=== PATIENT | female | born 1940 | race Caucasian/White ===

== ENCOUNTER 2020-02-01 08:45 | Emergency (ER) | payer MEDICARE, OTHER ==
[~2020-02-01] VITALS: Ht 157.5 cm; Wt 56.2 kg
[2020-02-01] MEDS ORDERED: LEVOTHYROXINE25 MCG PO (09:04)
[2020-02-01] MEDS ORDERED: HYDROCHLOROTH12.5 MG PO (09:05)
[2020-02-01] MEDS ORDERED: NORVASC5 MG PO (09:05)
[2020-02-01] MEDS ORDERED: LOVASTATIN10 MG PO (09:06)
[2020-02-01] MEDS ORDERED: CRANBERRY200 MG PO (09:06)
[2020-02-01] MEDS ORDERED: FISH OIL 1,0001 EAC2 NG (09:06)
[2020-02-01] MEDS ORDERED: ACID REDUCER200 MG PO (09:07)
[2020-02-01] MEDS ORDERED: VITAMIN D310 MC4 PO (09:07)
[2020-02-01] MEDS ORDERED: CALCIUM500 M1 PO (09:07)
[2020-02-01] MEDS ORDERED: MIRALAX17 GM PO (09:08)
--- NOTE | 2020-02-01 11:01 | EKG ---
[facility] [address] [facility] [place], [place] [address] Signed Sinus rhythm with 1st degree AV block Rightward axis Borderline ECG No previous ECGs available Confirmed by MARLENE CASTILLO DO ([id number]) on 02/01/2020 11:01:08 AM Electronically Signed By: MARLENE CASTILLO DO 02/01/20 1101 PATIENT NAME: VINICIO ALONSO TOMAS Electrocardiogram DATE OF : 36 PHYSICIAN: MARLENE CASTILLO DO REPORT #: [id number] REPORT IS CONFIDENTIAL AND NOT TO BE RELEASED WITHOUT AUTHORIZATION
[2020-02-01] MEDS ORDERED: CIPRO500 MG PO (13:53)
--- NOTE | 2020-02-04 01:18 | PATH ---
[facility] [address] [place], [place] [address] Signed ORDERING PHYSICIAN: Rosas Geller MD PATIENT NAME: VINICIO ALONSO GENDER: F : 1940 Prior History: No cases found. SPECIMEN(S): MOLECULAR PATHOLOGY RESULTS: SARS-CoV-2 Not Detected ADDITIONAL NOTES.: The Lindsay Fusion SARS-CoV-2 Assay is a multiplex real-time PCR (RT-PCR) in vitro diagnostic test intended for the qualitative detection of RNA from SARS-CoV-2 from individuals who meet COVID-19 clinical and/or epidemiological criteria. In general, SARS-CoV-2 RNA can be detected during the acute phase of infection. Positive results indicate the presence of SARS-CoV-2 RNA. Clinical correlation with patient history and other diagnostic information is necessary to determine patient infection status. Positive results do not rule out bacterial infection or co-infection with other viruses. Negative results do not preclude SARS-CoV-2 infection and should not be used as the sole basis for patient management decisions. Negative results must be combined with other clinical observations, patient history, and epidemiological information. The Lindsay Fusion SARS-CoV-2 Assay is not yet approved or cleared by the [place] FDA. When there are no FDA-approved or cleared tests available, and other criteria are met, FDA can make tests available under an emergency access mechanism called an Emergency Use Authorization (EUA). The EUA for this test is supported by the Fish Dressing Machine Feeder of Health and Human Service's (HHS's) declaration that circumstances exist to justify the emergency use of in vitro diagnostics for the detection and/or diagnosis of the virus that causes COVID-19. This EUA will remain in effect for the duration of the COVID-19 declaration justifying emergency of IVDs, unless it is terminated or revoked by FDA, after which the test may no longer be used. The Lindsay Fusion SARS-CoV-2 Assay is for use only under EUA PATIENT NAME: VINICIO ALONSO TOMAS PATHOLOGY DATE OF : 36 REPORT #: [id number] PHYSICIAN: LAITH PATHOLOGY PCP: HERACLIO BELTRAN MD REPORT IS CONFIDENTIAL AND NOT TO BE RELEASED WITHOUT AUTHORIZATION [facility] [address] [facility] [place], [place] [address] Signed in laboratories certified under the Clinical Laboratory Improvement Amendments of 1988 (CLIA) to perform high complexity tests. [facility] is certified under CLIA to perform high complexity clinical laboratory testing. Blanka Joel PERFORMING LABORATORY.: Molecular testing was performed by [facility] [address] (Formulator Compounder: Marvin Nails D.O.; CLIA#: [id number]) Diagnostician: System Interface Pathologist Electronically Signed 02/04/2020 Copies: ~ PATIENT NAME: VINICIO ALONSO PATHOLOGY DATE OF : 36 REPORT #: [id number] PHYSICIAN: LAITH MCGARRY PCP: HERACLIO BELTRAN MD REPORT IS CONFIDENTIAL AND NOT TO BE RELEASED WITHOUT AUTHORIZATION
== END 2020-02-01 14:22 | disposition home or self-care (01) ==
LOC: ED 08:45
DX: N39.0 Urinary tract infection, site not specified (principal); Z88.0 Allergy status to penicillin; Z88.8 Allergy status to other drugs, medicaments and biological substances; Z79.899 Other long term (current) 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; Z20.828 Contact with and (suspected) exposure to other viral communicable diseases
CPT/HCPCS: 51701; 71275; 74175; 80053; 81001; 83605; 83690; 84484; 85025; 85379; 85610; 93005; 93010; 99284-25; C9803; J1170; J2405; Q9967

== ENCOUNTER 2020-07-28 07:20 | Day surgery (SDC) | payer MEDICARE, OTHER ==
[~2020-07-28] VITALS: Ht 157.5 cm; Wt 58.0 kg
[~2020-07-28 07:20] MED LIST: ACID REDUCER200 MG PO; CALCIUM500 M1 PO; CIPRO500 MG PO; CRANBERRY200 MG PO; FISH OIL 1,0001 EAC2 NG; HYDROCHLOROTH12.5 MG PO; LEVOTHYROXINE25 MCG PO; LOVASTATIN10 MG PO; MIRALAX17 GM PO; NORVASC5 MG PO; VITAMIN D310 MC4 PO
[2020-07-28] MEDS ORDERED: ESTRADIOL0.5 MG PO (07:51)
--- NOTE | 2020-07-28 09:04 | NUR ---
07/28/20 0904 Kaelyn Whatley 0842 PT ARRIVED TO PACU ON 3L VIA NC, PT WAKES TO VERBAL STIMULI AND IS REORIENTED TO PACU. PT ENCOURAGED TO PASS GAS/AIR. VSS. PT EASILY FALLS BACK TO SLEEP. 09 O2 TURNED OFF.
--- NOTE | 2020-07-29 08:15 | OR ---
[facility] [address] [place], [place] [address] Signed DATE OF OPERATION: 07/28/2020 SURGEON: Jj Wells MD PREOPERATIVE DIAGNOSES: 1. Personal history of colonic polyps. 2. Sister with colonic polyps. 3. Brother with colonic polyps. 4. Brother of colon cancer at age 76. POSTOPERATIVE DIAGNOSES: 1. 4 mm polyp at 22 cm. 2. 4 mm polyps x2 at 6 cm. 3. Moderate internal and external hemorrhoids. PROCEDURE: Colonoscopy with hot biopsy. ESTIMATED BLOOD LOSS: None. INDICATIONS: Vinicio is an 79-year-old female asked to see me for a followup colonoscopy. She has a personal history of colonic polyps over multiple colonoscopies. She had adenomatous polyps [place] [address] Tomas Hodges in [place], [place]. She currently has no lower GI complaints. She has 8 siblings total. She had a sister and a brother who had colonic polyps removed. Another brother was diagnosed and of his colon cancer at age 76. She also has a little bit of constipation. In the office, I gave her a pamphlet on colonoscopy. Of course, she recalls the test quite well. She understands there is risk including, but not limited to gas bloating, crampy abdominal pain, bleeding, perforation requiring surgery, and missed diagnosis. She also understands the need for IV conscious sedation. She had expressed understanding and wished to proceed. PROCEDURE NOTE: Vinicio was taken into our endoscopy suite and placed in the left lateral decubitus position. She was given a total of 5 mg of Versed and 100 mcg of fentanyl to cover the case. A digital rectal exam was performed and this showed moderate circumferential external hemorrhoids. She had good sphincter tone. The adult colonoscope was introduced and advanced all around into the cecum under direct visualization of camera. It took extra sedation and abdominal compression in order to advance the scope. She has Electronically Signed By: JJ WELLS MD 07/29/20 0815 PATIENT NAME: VINICIO ALONSO [facility] OPERATIVE REPORT DATE OF : 36 REPORT #: [id number] PHYSICIAN: JJ WELLS MD PCP: HERACLIO BELTRAN MD REPORT IS CONFIDENTIAL AND NOT TO BE RELEASED WITHOUT AUTHORIZATION [facility] [address] [place], [place] [address] Signed a very long redundant left and transverse colon. Eventually, we made it down into the cecum itself, we could easily see the appendiceal orifice and the ileocecal valve. We had taken pictures throughout for photodocumentation. Her bowel prep was quite excellent. The scope was then slowly withdrawn. We removed the polyps as mentioned above. There was no diverticulosis. Again, she has a long redundant transverse left and sigmoid colon. The sigmoid colon is a bit narrow based on her body habitus and it did buckle the scope a bit. The rectum itself had two polyps. We then retroflexed the scope and she has moderate internal hemorrhoids as well. One hemorrhoid was bit irritated. It may bleed from time to time. After this, the gas was suctioned out and colonoscope removed. Vinicio tolerated the procedure quite well. RECOMMENDATIONS: I will see Vinicio back in my office in 7 to 14 days to review her results. Based on her family's longevity, she might consider another colonoscopy in 5 years. Jj Wells MD ALB/MODL /[id number] cc: MD Jj Jacobs MD Copies: HERACLIO BELTRAN MD, ANDREW L MD ~ Electronically Signed By: JJ WELLS MD 07/29/20 0815 PATIENT NAME: VINICIO ALONSO TOMAS OPERATIVE REPORT DATE OF : 36 REPORT #: [id number] PHYSICIAN: JJ WELLS MD PCP: HERACLIO BELTRAN MD REPORT IS CONFIDENTIAL AND NOT TO BE RELEASED WITHOUT AUTHORIZATION
--- NOTE | 2020-07-30 16:27 | PATH ---
[facility] [address] [place], [place] [address] Signed SPECIMEN(S): A RECTAL POLYP 6 CM SPECIMEN(S): B SIGMOID POLYP 22 CM SPECIMEN SOURCE: A. RECTAL POLYP 6 CM B. SIGMOID POLYP 22 CM CLINICAL HISTORY: History of polyps; family history of colon cancer MICROSCOPIC DESCRIPTION: Histologic sections of all submitted blocks are examined by light microscopy. These findings, together with the gross examination, support the pathologic diagnosis. FINAL PATHOLOGIC DIAGNOSIS: A. Rectum, polyp at 6 cm, polypectomy: - Hyperplastic polyp. - Negative for dysplasia or malignancy. B. Colon, sigmoid, polyp at 22 cm, polypectomy: - Cauterized colonic mucosa with no identifiable histopathologic abnormality. - Negative for dysplasia or malignancy. - See comment. COMMENT: Regarding specimen B: Multiple additional deeper levels are examined. Complete histologic evaluation of the mucosa is limited by cautery artifact. NAL:cml:C2NR GROSS DESCRIPTION: Two specimens are received in two containers, labeled "Favorit." A. The specimen, labeled and designated "Favorit, rectum polyp 6 cm," is received in formalin and consists of two luevano soft tissue fragments that measure 0.2 cm in greatest dimension. The specimen is entirely submitted in cassette (A1). B. The specimen, labeled and designated "Favorit, sigmoid polyp 22 cm," is received in formalin and consists of one luevano soft tissue fragment that measures 0.2 cm in greatest dimension. The specimen is entirely submitted in cassette (B1). VB (under the direct supervision of a pathologist) The Gross Description was prepared using a voice recognition system. The report was reviewed for accuracy; however, sound-alike word errors, addition and/or PATIENT NAME: VINICIO ALONSO PATHOLOGY DATE OF : 36 REPORT #: [id number] PHYSICIAN: LAITH MCGARRY PCP: HERACLIO BELTRAN MD REPORT IS CONFIDENTIAL AND NOT TO BE RELEASED WITHOUT AUTHORIZATION [facility] [address] [place] [address] Signed deletions may occur. If there is any question about this report, please contact Client Services. PERFORMING LABORATORY: The technical component was performed by [facility], [address] [place] [address] (Corporate Tax Preparer: Bree Willis MD; CLIA# [id number]). Professional interpretation [facility] performed by [facility], [address] [place] [address] (CLIA# [id number]). Diagnostician: Jessica Dodson MD Pathologist Electronically Signed 07/30/2020 Copies: ~ PATIENT NAME: VINICIO ALONSO PATHOLOGY DATE OF : 36 REPORT #: [id number] PHYSICIAN: LAITH MCGARRY PCP: HERACLIO BELTRAN MD REPORT IS CONFIDENTIAL AND NOT TO BE RELEASED WITHOUT AUTHORIZATION
== END 2020-07-28 09:35 | disposition home or self-care (01) ==
LOC: OPS 07:20 → DS 07:20 → OPS 07:30 → DS 07:30 → OPS 09:35 → DS 08-11 07:45
PROVIDERS: ATTEND Colon & Rectal Surgery
PROC: 0DBN8ZX Excision of Sigmoid Colon, Via Natural or Artificial Opening Endoscopic, Diagnostic (ICD-10-PCS; 2020-07-28)
PROC: 0DBP8ZX Excision of Rectum, Via Natural or Artificial Opening Endoscopic, Diagnostic (ICD-10-PCS; principal; 2020-07-28 07:30)
DX: K63.5 Polyp of colon (principal); K62.1 Rectal polyp; K64.8 Other hemorrhoids; K64.4 Residual hemorrhoidal skin tags; K21.9 Gastro-esophageal reflux disease without esophagitis; I10 Essential (primary) hypertension; E78.5 Hyperlipidemia, unspecified; H81.02 Meniere's disease, left ear; E03.9 Hypothyroidism, unspecified; Z86.010 Personal history of colon polyps; Z80.0 Family history of malignant neoplasm of digestive organs; Z83.71 Family history of colonic polyps; Z87.19 Personal history of other diseases of the digestive system; Z87.440 Personal history of urinary (tract) infections; Z88.1 Allergy status to other antibiotic agents; Z88.0 Allergy status to penicillin; Z88.8 Allergy status to other drugs, medicaments and biological substances
CPT/HCPCS: 99153; G0500; J2250; J3010

== ENCOUNTER 2021-06-22 12:01 | Emergency (ER) | payer MEDICARE, OTHER ==
[~2021-06-22] VITALS: Ht 157.5 cm; Wt 57.6 kg
[~2021-06-22 12:01] MED LIST changes: +ESTRADIOL0.5 MG PO
== END 2021-06-22 22:22 | disposition short-term general hospital (02) ==
LOC: ED 12:01
DX: R33.9 Retention of urine, unspecified (principal); M54.9 Dorsalgia, unspecified; E03.9 Hypothyroidism, unspecified; E78.00 Pure hypercholesterolemia, unspecified; Z88.0 Allergy status to penicillin; Z88.1 Allergy status to other antibiotic agents; Z88.8 Allergy status to other drugs, medicaments and biological substances; Z79.899 Other long term (current) 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; Z20.822 Contact with and (suspected) exposure to COVID-19
CPT/HCPCS: 36415; 51702; 51798; 74177; 80053; 81001; 83690; 85025; 99285-25; J2405; U0003

== ENCOUNTER 2021-12-22 19:43 | Emergency (ER) | payer MEDICARE, OTHER ==
[~2021-12-22] VITALS: Ht 157.5 cm; Wt 61.8 kg
[2021-12-22] MEDS ORDERED: MACROBID 100 M100 MG PO (20:41)
== END 2021-12-22 21:50 | disposition home or self-care (01) ==
LOC: ED 19:43
DX: R11.2 Nausea with vomiting, unspecified (principal); T36.8X5A Adverse effect of other systemic antibiotics, initial encounter; E03.9 Hypothyroidism, unspecified; E78.00 Pure hypercholesterolemia, unspecified; Z88.0 Allergy status to penicillin; Z88.8 Allergy status to other drugs, medicaments and biological substances; Z79.899 Other long term (current) 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
CPT/HCPCS: 36415; 80053; 85025; 96361; 96374; 96375; 99284-25; A9270; J2405; J2550; J7040

== ENCOUNTER 2022-06-01 11:19 | Emergency (ER) | payer MEDICARE, OTHER ==
[~2022-06-01] VITALS: Ht 157.5 cm; Wt 62.5 kg
[~2022-06-01 11:19] MED LIST changes: -CALCIUM500 M1 PO; +CALCIUM500 MG PO; +CRANBERRY PLUS1 EAC1 PO; -CRANBERRY200 MG PO; -FISH OIL 1,0001 EAC2 NG; +FISH OIL 1,0001 EAC6 PO; +MACROBID 100 M100 MG PO; -VITAMIN D310 MC4 PO; +VITAMIN D325 MCG PO
[2022-06-01] MEDS ORDERED: FLOMAX0.4 MG PO (15:32)
[2022-06-01] MEDS ORDERED: DITROPAN XL5 MG PO (15:32)
[2022-06-01] MEDS ORDERED: MACROBID 100 M100 MG PO (15:32)
[2022-06-02] MEDS ORDERED: OXYBUTYNIN CHLO10 MG PO (20:47)
[2022-06-02] MEDS ORDERED: NITROFURANTOIN100 M1 PO (20:47)
== END 2022-06-01 15:51 | disposition home or self-care (01) ==
LOC: ED 11:19
DX: R33.9 Retention of urine, unspecified (principal); I10 Essential (primary) hypertension; E78.00 Pure hypercholesterolemia, unspecified; E03.9 Hypothyroidism, unspecified; Z88.0 Allergy status to penicillin; Z88.8 Allergy status to other drugs, medicaments and biological substances; Z79.899 Other long term (current) 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
CPT/HCPCS: 36415; 51702; 51798; 80053; 81003; 83735; 85025; 99283-25; J2405; J7040

== ENCOUNTER 2022-06-02 20:13 | Inpatient (IN) | payer MEDICARE, OTHER ==
[~2022-06-02] VITALS: Ht 157.5 cm; Wt 59.2 kg
[~2022-06-02 20:13] MED LIST changes: +DITROPAN XL5 MG PO; +FLOMAX0.4 MG PO
--- OUTSIDE RECORDS SUMMARY | 2022-06-02 20:21 | XMS ---
PreManage Notification: VINICIO ALONSO Security Insurance Claims Examiner Events No recent Security Events currently on file CRITERIA MET - [facility] - 2 Visits in 30 Days CARE PROVIDERS RUBY [facility] 01/21/2015-Current PHONE: Unknown Deidre has no Care Guidelines for this patient. Jose VISIT COUNT (12 MO.) 4 [facility] TOTAL 4 NOTE: Visits indicate total known visits. ED/UCC VISIT TRACKING (12 MO.) 06/02/2022 20:13 [facility] [place] TYPE: Emergency COMPLAINT: - VOMITING 06/01/2022 11:19 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
[2022-06-02] MEDS ORDERED: NITROFURANTOIN100 M1 PO (20:47)
[2022-06-02] MEDS ORDERED: OXYBUTYNIN CHLO10 MG PO (20:47)
--- NOTE | 2022-06-03 03:32 | NUR ---
pt ARRIVED TO THE [facility] FROM ED STRETCHER, pt STOOD PIVOT FROM ED STRETCHER TO MS BED. pt ORIENTED TO POC FOR SHIFT AND INSTRUCTED TO USE CALL LIGHT BEFORE GETTING OOB. CALL LIGHT IN REACH. ADMISSION COMPLETE.
--- NOTE | 2022-06-03 04:17 | NUR ---
PATIENT ARRIVED TO THE FLOOR VIA STRETCHER. PATIENT ABLE TO PIVOT XFER FROM STRETCHER TO HOSPITAL BED A 1PA. PATIENT HAS RALPH IN PLACE FOR RETENTION. LEG BAG EXCHANGED FOR A REGULAR CATHETER BAG. PATIENTS IV INFUSING PER ORDER. PATIENT DENIES ANY PAIN OR SOB. PATIENT REPORTS NAUSEA THAT "COMES AND GOES". PATIENT DENIES THE NEED FOR INTERVENTION AT THIS TIME. PLAN OF CARE UPDATE WITH FAMILY AND PATIENT. ALL QUESTIONS ANSWERED. PATIENT DENIES ANY FURTHER NEEDS. CALL LIGHT IN REACH. FAMILY IS LEAVING FOR THE NIGHT.
--- NOTE | 2022-06-03 06:04 | NUR ---
PATIENTS VITALS TAKEN AND RECORDED. PATIENTS RALPH EMPTIED AND RALPH CARE COMPLETED. PATIENT DENIES ANY PAIN. PATIENT REPORTS MILD NAUSEA AND DENIES ANY INTERVENTION AT THIS TIME. PATIENTS IV INFUSING PER ORDER. PATIENT DENIES ANY FURTHER NEEDS. CALL LIGHT IN REACH.
--- NOTE | 2022-06-03 07:36 | NUR ---
SHAFFER IN PLACE DIRECTED, SPO2 MID 90'S ON RA. HR 107. NO NEEDS OR CONCERNS VERBALIZED. CALL LIGHT IN REACH.
--- NOTE | 2022-06-03 08:40 | NUR ---
REPORT RECEIVED FROM NIGHT RN AND PT CARE RESUMED. PT IS ALERT AND ORIENTED TO ALL. DENIES PT. C/O VERY MILD NAUSEA THAT IS INTERMITTENT AND REFUSES ANTIEMETIC MEDS. ASSESSMENT COMPLETED. MOUTH SWABS AND CALL LIGHT AT BEDSIDE.
[2022-06-03] MEDS ORDERED: LEVOTHYROXINE50 MCG PO (08:43)
[2022-06-03] MEDS ORDERED: LEVOTHYROXINE25 MCG PO (08:48)
--- NOTE | 2022-06-03 13:04 | NUR ---
MED REC COMPLETE
--- NOTE | 2022-06-03 15:21 | NUR ---
ROUNDING ON PT. FOCUSED ASSESSMENT COMPLETED. PT. DENIES NAUSEA AT THIS TIME. EATING JELLO AND DRINKING WATER.
--- NOTE | 2022-06-03 15:30 | NUR ---
Spoke with pt and she states she lives in an appartment alone. Multiple family members live near her. Family will stay with her if needed when she discharges. Pt use a walker at night for bathroom trips only. 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 She is active and plans on remaining so. She also drives. Denies need for any assist from [employer] or programs and does not want them. 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 Plans on dc to home when cleared medically. Denies any fiancial issues or concerns.
--- NOTE | 2022-06-03 16:16 | EKG ---
[facility] [address] [facility] [place] [address] Signed Normal sinus rhythm Normal ECG When compared with ECG of 01-FEB-2020 09:10, WI interval has decreased Confirmed by SO MULLIGAN MD ([id number]) on 06/03/2022 4:16:13 PM Electronically Signed By: SO MULLIGAN MD 06/03/22 1616 PATIENT NAME: VINICIO ALONSO TOMAS Electrocardiogram DATE OF : 36 PHYSICIAN: SO MULLIGAN MD REPORT #: [id number] REPORT IS CONFIDENTIAL AND NOT TO BE RELEASED WITHOUT AUTHORIZATION
--- NOTE | 2022-06-03 16:48 | NUR ---
CHECKED ON PATIENT AT 1600 TO SEE IF SHE NEEDED ANYTHING AND SHE SAID INSTEAD OF HAVING THE BEEF BROTH SHE WOULD LIKE TO TRY THE CHICKEN BROTH SO I ORDERED IT FOR HER FOR DINNER.
--- NOTE | 2022-06-03 19:38 | NUR ---
RECEIVED REPORT FROM DAY SHIFT RN. PATIENT IS RESTING IN BED WATCHING TV. PATIENT DENIES ANY NEEDS. CALL LIGHT IN REACH. IV INFUSING PER ORDER.
--- NOTE | 2022-06-03 20:47 | NUR ---
PATIENT ASSESMENT COMPLETED. PATIENT IS RESTING IN BED WATCHING TV. PATIENTS VITALS TAKEN AND RECORDED. PATIENTS RALPH EMPTIED AND RALPH CARE COMPLETED. PATIENTS IV INFUSIGN PER ORDER. PATIENTS PM MEDS GIVEN PER ORDER. PATIENT DENIES ANY PAIN OR NAUSEA. PATIENT IS AAOX4. PATIENT DENIES ANY FURTHER NEEDS. CALL LIGHT IN REACH.
--- NOTE | 2022-06-03 22:30 | NUR ---
PATIENTS BLOOD DRAWN AND SENT TO LAB. PATIENT TOLERATED ACTIVY WELL. PATIENTS IV INFUSING PER ORDER. PATIENT DENIES ANY FURTHER NEEDS. CALL LIGHT IN REACH.
--- NOTE | 2022-06-03 22:38 | NUR ---
PLACED CALL TO DR MULLIGAN WITH CONCERN OF SODIUM LAB DRAWN AT 2200. LAVERNE MULLIGAN TO PLACED ORDERS.
--- NOTE | 2022-06-03 22:54 | NUR ---
IV PUMP ALARMING, DISTAL OCCLUSION. NO ADDITIONAL NEEDS OR CONCERNS. CALL LIGHT IN REACH.
--- NOTE | 2022-06-04 00:32 | NUR ---
PATIENTS IV MEDS INFUSING PER ORDER. PATIENT DENIES ANY PAINOR NAUSEA. PATIENT DENIES ANY NEEDS. CALL LIGHT IN REACH.
--- NOTE | 2022-06-04 02:18 | NUR ---
VITALS TAKEN AND RECORDED. RALPH EMPTIED. INTAKE AND OUTPUT RECORDED. IV INFUSING PER ORDER. PATIENT DENIES ANY PAIN OR NAUSEA. CALL LIGHT IN REACH.
--- NOTE | 2022-06-04 04:02 | NUR ---
PATIENT IS RESTING IN BED ON RIGHT SIDE W/EYES CLSOED, RR 14. CALL LIGHT IN REACH. IV INFUSING PER ORDER.
--- NOTE | 2022-06-04 06:22 | NUR ---
PATIENT IS RESTING IN BED. PATIENTS VITALS TAKEN AND RECORDED. RALPH EMPTIED. INTAKE AND OUTPUT RECORDED. PATIENT DENIES ANY PAIN OR NAUSEA. AM MEDS PER ORDER. PATIENTS IV INFUSING PER ORDER. PATIENT DENIES ANY FURTHER NEEDS. CALL LIGHT IN REACH.
--- NOTE | 2022-06-04 07:34 | NUR ---
REPORT RECEIVED FROM NIGHT RN AND PT CARE RESUMED.
--- NOTE | 2022-06-04 14:33 | NUR ---
FOCUSED ASSESSMENT COMPLETED. PT. STATES SHE WAS ABLE TO EAT PART OF HER REGULAR DIET LUNCH BUT IS EATING SLOWLY DUE TO CAUTION. SHE DENIES NAUSEA OR PAIN. BROUGHT ICE. LEFT RESTING WITH CALL LIGHT IN [facility].
--- NOTE | 2022-06-04 16:45 | NUR ---
PT. AMBULATED ONE LAP AROUND THE UNIT WITH FWW AND SBA AND TOLERATED WELL. STEADY GAIT. SHE IS UP IN THE CHAIR FOR DINNER AND DENIES PAIN OR NAUSEA. CALL LIGHT IN REACH.
--- NOTE | 2022-06-04 19:10 | NUR ---
SHIFT REPORT GIVEN PER ROBERTO RN, PT AWAKE AND ALERT, CHEERFUL, VISITING WITH SON, WITHOUT REQUESTS AT THIS TIME.
--- NOTE | 2022-06-04 21:18 | NUR ---
PT RESTING WITH EYES CLOSED, AWAKENS EASILY, ALERT, VS AND ASSESSMENT COMPLETED, FRESH WATER GIVEN, PT WITH GOOD PO WATER INTAKE, SL X 2 BOTH FLUSHED WITH N/S, SITES INTACT, PT DENIES PAIN.
--- NOTE | 2022-06-04 21:45 | NUR ---
PT AWAKE, RT A/B GIVEN PER ORDER WITH CRACKERS, PT WITHOUT OTHER REQUESTS, DRINKING WATER WELL, ATTEMPTING TO SLEEP.
--- NOTE | 2022-06-04 23:35 | NUR ---
PT ASLEEP, RESP EVEN AND REGULAR, WITHOUT DISTRESS.
--- NOTE | 2022-06-05 00:30 | NUR ---
PT ASLEEP, TILTED ON SIDE, RESP EVEN AND REG.
--- NOTE | 2022-06-05 00:45 | NUR ---
RN CALLED TO PT'S ROOM, REQUESTING TO HAVE HER DOOR CLOSED, DENIES NEED FOR WARM BLANKET.
--- NOTE | 2022-06-05 02:15 | NUR ---
PT ASLEEP, RESP EVEN AND REG, WITHOUT DISTRESS.
--- NOTE | 2022-06-05 03:13 | NUR ---
PT RESTING QUIETLY, OPENS EYES BRIEFLY, THEN BACK TO SLEEP, RALPH EMPTIED FOR 1000 ML LIGHT YELLOW URINE.
--- NOTE | 2022-06-05 05:22 | NUR ---
PT APPEARS TO SLEEP, RESP EVEN AND REG, WITHOUT DISTRESS.
--- NOTE | 2022-06-05 06:10 | NUR ---
PT AWAKEN, ALERT, WITHOUT C/O PAIN, REQUESTS SOME OF HER BLANKETS BE REMOVED DUE TO THEM BEING SRATCHY, DONE, VS DONE, RT MEDS GIVEN, RALPH EMPTIED, FRESH WATER GIVEN, ASSESSMENT COMPLETED, PT ATTEMPTING TO REST.
--- NOTE | 2022-06-05 07:38 | NUR ---
PT RESTING SOUNDLY AT TIME OF SHIFT REPORT. BREATHING EVEN AND UNLABORED, LEFT UNDISTURBED. CALL LIGHT IN REACH FRESH H20 AT BEDSIDE.
--- NOTE | 2022-06-05 08:14 | NUR ---
PT SITTING UP IN THE CHAIR AT THIS TIME WAITING FOR MORNING MEAL AGREES SHE IS HUNGRY. DENIES NEEDS OR DISCOMFORTS. CALL LIGHT IN LAP
--- NOTE | 2022-06-05 09:07 | NUR ---
PT UP IN THE CHAIR TOLERATING SMALL AMOUNTS OF MORNING MEAL. DENIES NAUSEA OR DISCOMFORTS. LIGHT LUNCH ORDERED FOR NOON MEAL PER HER REQUEST. CALL LIGHT IN REACH
--- NOTE | 2022-06-05 10:24 | NUR ---
PT RETURNS TO RESTING IN BED, DENIES NAUSEA OR ILL EFFECTS FROM MORNING MEAL.
[2022-06-05] MEDS ORDERED: LEVOFLOXACIN750 MG PO (12:06)
--- NOTE | 2022-06-05 13:02 | NUR ---
CATH CARE REVIEWED WITH THIS PT SHE DECLARES SHE HAS HAD A HOME CATH PRIOR AND IS VERY FAMILIAR, BUT WILL READ LITERATURE ANYWAY. WRITTEN MATERIALS PROVIDED
== END 2022-06-05 14:10 | disposition home or self-care (01) | DRG 690 ==
LOC: ED 20:13 → MS 20:14
PROVIDERS: ADMIT Internal Medicine; ATTEND Internal Medicine
DX: N30.00 Acute cystitis without hematuria (principal); E87.1 Hypo-osmolality and hyponatremia; Z20.822 Contact with and (suspected) exposure to COVID-19; Z66 Do not resuscitate; N81.10 Cystocele, unspecified; R33.9 Retention of urine, unspecified; N13.8 Other obstructive and reflux uropathy; E78.00 Pure hypercholesterolemia, unspecified; E87.6 Hypokalemia; E83.42 Hypomagnesemia; K80.20 Calculus of gallbladder without cholecystitis without obstruction; I10 Essential (primary) hypertension; E03.9 Hypothyroidism, unspecified; Z88.0 Allergy status to penicillin; Z88.2 Allergy status to sulfonamides; Z88.8 Allergy status to other drugs, medicaments and biological substances; Z79.890 Hormone replacement therapy; Z90.710 Acquired absence of both cervix and uterus; Z79.899 Other long term (current) 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
CPT/HCPCS: 36415; 74177; 76705; 80048; 80053; 81001; 83605; 83735; 84484; 85025; 87502; 93005; 93010; C9803; J1650; J1790; J1956; J2405; J3475; J3480; J7030; J7121; J7131; Q9967; U0003

== ENCOUNTER 2022-08-23 19:39 | Emergency (ER) | payer MEDICARE, OTHER ==
[~2022-08-23] VITALS: Ht 157.5 cm; Wt 57.2 kg
[~2022-08-23 19:39] MED LIST changes: +AMLODIPINE BESYL5 MG PO; +LEVOFLOXACIN750 MG PO; +LEVOTHYROXINE50 MCG PO; +NITROFURANTOIN100 M1 PO; +OMEPRAZOLE20 MG PO; +OXYBUTYNIN CHLO10 MG PO; +TAMSULOSIN HCL0.4 MG PO
--- OUTSIDE RECORDS SUMMARY | 2022-08-23 19:47 | XMS ---
PreManage Notification: VINICIO ALONSO Security Watchguard Events No recent Security Events currently on file CRITERIA MET - [facility] - 2 Visits in 30 Days CARE PROVIDERS RUBY [facility] 01/21/2015-Current PHONE: Unknown Deidre has no Care Guidelines for this patient. Jose VISIT COUNT (12 MO.) 6 [facility] TOTAL 6 NOTE: Visits indicate total known visits. ED/UCC VISIT TRACKING (12 MO.) 08/23/2022 19:40 [facility] [place] TYPE: Emergency COMPLAINT: - UNABLE TO URINATE 08/21/2022 07:43 [facility] [place] TYPE: Emergency COMPLAINT: - N/V 08/20/2022 14:51 [facility] [place] TYPE: Emergency COMPLAINT: - CATHETER PROBLEM DIAGNOSES: - Allergy status to other antibiotic agents - Allergy status to other drugs, medicaments and biological substances - Allergy status to penicillin - Allergy status to sulfonamides - Essential (primary) hypertension - Hypothyroidism, unspecified - Other skilled nursing (current) 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 - Presence of urogenital implants - Pure hypercholesterolemia, unspecified - Urinary tract infection, site not specified 06/02/2022 20:[address] [facility] [place] TYPE: Emergency COMPLAINT: - VOMITING 06/01/2022 11:19 [facility] [place] TYPE: Emergency COMPLAINT: - VOMITING, CHILLS, POSS UTI DIAGNOSES: - Allergy status to other drugs, medicaments and biological substances - Allergy status to penicillin - Essential (primary) hypertension - Hypothyroidism, unspecified - Other terminal worker (current) 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 - Pure hypercholesterolemia, unspecified - Retention of urine, unspecified 12/22/2021 19:44 [facility] [place] TYPE: Emergency COMPLAINT: - MEDICATION REACTION DIAGNOSES: - Adverse effect of other systemic antibiotics, initial encounter - Allergy status to other drugs, medicaments and biological substances - Allergy status to penicillin - Hypothyroidism, unspecified - Nausea with vomiting, unspecified - Other skilled nursing (current) 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 - Pure hypercholesterolemia, unspecified INPATIENT VISIT TRACKING (12 MO.) 08/21/2022 07:44 [facility] [place] TYPE: Observation COMPLAINT: - UTI,SYNCOPE 06/03/2022 10:57 [facility] [place] TYPE: Medical Surgical COMPLAINT: - INTRACTABLE NAUSEA/VOMITING/URINARY RETENTION DIAGNOSES: - Acquired absence of both cervix and uterus - Acute cystitis without hematuria - Allergy status to other drugs, medicaments and biological substances - Allergy status to penicillin - Allergy status to sulfonamides - Calculus of gallbladder without cholecystitis without obstruction - Contact with and (suspected) exposure to COVID-19 - Cystocele, unspecified - Do not resuscitate - Essential (primary) hypertension - Hormone replacement therapy - Hypo-osmolality and hyponatremia - Hypokalemia - Hypomagnesemia - Hypothyroidism, unspecified - Other skilled nursing (current) 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 - Other obstructive and reflux uropathy - Pure hypercholesterolemia, unspecified - Retention of urine, unspecified [email or web address]
[2022-08-23 21:25] VITALS: BP 151/67
[2022-08-24] MEDS ORDERED: PYRIDIUM200 MG PO (20:35)
== END 2022-08-23 21:26 | disposition home or self-care (01) ==
LOC: ED 19:39
DX: R33.9 Retention of urine, unspecified (principal); I10 Essential (primary) hypertension; E03.9 Hypothyroidism, unspecified; E78.00 Pure hypercholesterolemia, unspecified; Z88.0 Allergy status to penicillin; Z88.1 Allergy status to other antibiotic agents; Z88.2 Allergy status to sulfonamides; Z88.8 Allergy status to other drugs, medicaments and biological substances; Z79.899 Other long term (current) 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
CPT/HCPCS: 51702; 99283-25

== ENCOUNTER 2022-08-24 17:53 | Emergency (ER) | payer MEDICARE, OTHER ==
[~2022-08-24] VITALS: Ht 157.5 cm; Wt 57.1 kg
--- OUTSIDE RECORDS SUMMARY | 2022-08-24 18:00 | XMS ---
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 Jose VISIT COUNT (12 MO.) [address] [place] [address] TOTAL 7 NOTE: Visits indicate total known visits. ED/UCC VISIT TRACKING (12 MO.) 08/24/2022 17:54 [facility] TYPE: Emergency COMPLAINT: - CATHETER PROBLEM 08/23/2022 19:40 [facility] TYPE: Emergency COMPLAINT: - UNABLE TO URINATE 08/21/2022 07:43 [facility] TYPE: Emergency COMPLAINT: - N/V 08/20/2022 14:51 [facility] TYPE: Emergency COMPLAINT: - CATHETER PROBLEM DIAGNOSES: - Allergy status to other antibiotic agents - Allergy status to other drugs, medicaments and biological substances - Allergy status to penicillin - Allergy status to sulfonamides - Essential (primary) hypertension - Hypothyroidism, unspecified - Other residential (current) 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 - Presence of urogenital implants - Pure hypercholesterolemia, unspecified - Urinary tract infection, site not specified 06/02/2022 20:13 [facility] TYPE: Emergency COMPLAINT: - VOMITING 06/01/2022 11:19 [facility] TYPE: Emergency COMPLAINT: - VOMITING, CHILLS, POSS UTI DIAGNOSES: - Allergy status to other drugs, medicaments and biological substances - Allergy status to penicillin - Essential (primary) hypertension - Hypothyroidism, unspecified - Other residential (current) 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 - Pure hypercholesterolemia, unspecified - Retention of urine, unspecified 12/22/2021 19:44 [facility] TYPE: Emergency COMPLAINT: - MEDICATION REACTION DIAGNOSES: - Adverse effect of other systemic antibiotics, initial encounter - Allergy status to other drugs, medicaments and biological substances - Allergy status to penicillin - Hypothyroidism, unspecified - Nausea with vomiting, unspecified - 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
[2022-08-24] MEDS ORDERED: PYRIDIUM200 MG PO (20:35)
[2022-08-24 21:04] VITALS: BP 165/71
== END 2022-08-24 21:06 | disposition home or self-care (01) ==
LOC: ED 17:53
DX: T83.098A Other mechanical complication of other urinary catheter, initial encounter (principal); Y84.6 Urinary catheterization as the cause of abnormal reaction of the patient, or of later complication, without mention of misadventure at the time of the procedure; I10 Essential (primary) hypertension; E78.00 Pure hypercholesterolemia, unspecified; E03.9 Hypothyroidism, unspecified; Z88.0 Allergy status to penicillin; Z88.1 Allergy status to other antibiotic agents; Z88.2 Allergy status to sulfonamides; Z79.899 Other long term (current) 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
CPT/HCPCS: 51798; 81001; 99283-25

== ENCOUNTER 2022-09-30 09:19 | Emergency (ER) | payer MEDICARE, OTHER ==
[~2022-09-30] VITALS: Ht 157.5 cm; Wt 54.4 kg
--- OUTSIDE RECORDS SUMMARY | ~2022-09-30 | XMS | Continuity of Care Document ---
Demographics + + + | Address | [address] | | | [place] [address] | + + + | Preferred Language | Unknown | + + + | Marital Status | | + + + | Jewish Affiliation | Unknown | + + + | Race | White | + + + | Ethnic Group | Not or | + + + Author + + + | Author | [facility] | + + + | Organization | [facility] | + + + | Address | [address] | | | [place] [address] | + + + | Phone | | + + + Care Team Providers + + + + | Care Divisional Storekeeper Name | Role | Phone | + + + + Unavailable | Unavailable | + + + + Unavailable | Unavailable | + + + + Unavailable | Unavailable | + + + + Unavailable | Unavailable | + + + + Unavailable | Unavailable | + + + + Unavailable | Unavailable | + + + + Allergies and Intolerances + + + + + + | date | description | facility | reaction | severity | + + + + + + | (no date) | | [facility] | (no reaction) | (no severity) | | | Sulfamethoxazol | [facility] | | | + + + + + + | (no date) | Trimethoprim | [facility] | (no reaction) | (no severity) | | | | [facility] | | | + + + + + + | (no date) | AMOXICILLIN | [facility] | (no reaction) | (no severity) | | | | [place] | | | + + + + + + | (no date) | Hives | [facility] | (no reaction) | (no severity) | | | | [place] | | | + + + + + + | (no date) | AMOXICILLIN | [facility] | (no reaction) | (no severity) | | | | [place] | | | + + + + + + | (no date) | AMOXICILLIN | [facility] | (no reaction) | (no severity) | | | | [place] | | | + + + + + + | (no date) | Upset stomach | [facility] | (no reaction) | (no severity) | | | | [facility] | | | + + + + + + | (no date) | AMOXICILLIN | [facility] | (no reaction) | (no severity) | | | | [place] | | | + + + + + + | (no date) | CEFUROXIME | [facility] | (no reaction) | (no severity) | | | | [place] | | | + + + + + + | (no date) | CEFUROXIME | [facility] | (no reaction) | (no severity) | | | AXETIL | [place] | | | + + + + + + | (no date) | CEFUROXIME | [facility] | (no reaction) | (no severity) | | | | [place] | | | + + + + + + | (no date) | CEFUROXIME | [facility] | (no reaction) | (no severity) | | | AXETIL | [place] | | | + + + + + + | (no date) | CEFUROXIME | [facility] | (no reaction) | (no severity) | | | AXETIL | [place] | | | + + + + + + | (no date) | CEFUROXIME | [facility] | (no reaction) | (no severity) | | | | [place] | | | + + + + + + | (no date) | Cefuroxime | [facility] | (no reaction) | (no severity) | | | | [facility] | | | + + + + + + | (no date) | AMOXICILLIN | [facility] | (no reaction) | (no severity) | | | | [place] | | | + + + + + + | (no date) | CEFUROXIME | [facility] | (no reaction) | (no severity) | | | AXETIL | [place] | | | + + + + + + | (no date) | Mild | [facility] | (no reaction) | (no severity) | | | | [facility] | | | + + + + + + | (no date) | AMOXICILLIN | [facility] | (no reaction) | (no severity) | | | | [place] | | | + + + + + + | (no date) | Rash | [facility] | (no reaction) | (no severity) | | | | [facility] | | | + + + + + + | (no date) | Amoxicillin | [facility] | (no reaction) | (no severity) | | | | [facility] | | | + + + + + + | (no date) | Pruritus | [facility] | (no reaction) | (no severity) | | | | [place] | | | + + + + + + | (no date) | Unknown | [facility] | (no reaction) | (no severity) | | | | [place] | | | + + + + + + | (no date) | ESOMEPRAZOLE | [facility] | (no reaction) | (no severity) | | | MAGNESIUM | [place] | | | + + + + + + | (no date) | ESOMEPRAZOLE | [facility] | (no reaction) | (no severity) | | | MAGNESIUM | [place] | | | + + + + + + | (no date) | Esomeprazole | [facility] | (no reaction) | (no severity) | | | | [facility] | | | + + + + + + | (no date) | Esomeprazole | [facility] | (no reaction) | (no severity) | | | | [facility] | | | + + + + + + | (no date) | Trimethoprim | [facility] | (no reaction) | (no severity) | | | | [facility] | | | + + + + + + | (no date) | | [facility] | (no reaction) | (no severity) | | | Sulfamethoxazol | [facility] | | | + + + + + + | (no date) | Cefuroxime | [facility] | (no reaction) | (no severity) | | | | [facility] | | | + + + + + + | (no date) | AMOXICILLIN | [facility] | (no reaction) | (no severity) | | | | [place] | | | + + + + + + | (no date) | CEFUROXIME | [facility] | (no reaction) | (no severity) | | | AXETIL | [place] | | | + + + + + + | (no date) | PENICILLINS | [facility] | (no reaction) | (no severity) | | | | [place] | | | + + + + + + | (no date) | Penicillin | [facility] | (no reaction) | (no severity) | | | | [facility] | | | + + + + + + | (no date) | AMOXICILLIN | [facility] | (no reaction) | (no severity) | | | | [place] | | | + + + + + + | (no date) | Amoxicillin | [facility] | (no reaction) | (no severity) | | | | [facility] | | | + + + + + + | (no date) | Penicillin | [facility] | (no reaction) | (no severity) | | | | [facility] | | | + + + + + + | (no date) | AMOXICILLIN | [facility] | (no reaction) | (no severity) | | | | [place] | | | + + + + + + | (no date) | Amoxicillin | [facility] | (no reaction) | (no severity) | | | | [facility] | | | + + + + + + | (no date) | AMOXICILLIN | [facility] | (no reaction) | (no severity) | | | | [place] | | | + + + + + + | (no date) | Trimethoprim | [facility] | (no reaction) | (no severity) | | | | [facility] | | | + + + + + + | (no date) | Penicillins | [facility] | (no reaction) | (no severity) | + + + + + + | (no date) | | [facility] | (no reaction) | (no severity) | | | sulfamethoxazol | | | | | | e | | | | + + + + + + | (no date) | trimethoprim | [facility] | (no reaction) | (no severity) | + + + + + + | (no date) | cefuroxime | [facility] | (no reaction) | (no severity) | + + + + + + | (no date) | amoxicillin | [facility] | (no reaction) | (no severity) | + + + + + + | (no date) | esomeprazole | [facility] | (no reaction) | (no severity) | + + + + + + | (no date) | | [facility] | (no reaction) | (no severity) | | | Sulfamethoxazol | [facility] | | | + + + + + + | (no date) | Penicillin | [facility] | (no reaction) | (no severity) | | | | [facility] | | | + + + + + + | (no date) | Esomeprazole | [facility] | (no reaction) | (no severity) | | | | [facility] | | | + + + + + + | (no date) | AMOXICILLIN | [facility] | (no reaction) | (no severity) | | | | [place] | | | + + + + + + | (no date) | AMOXICILLIN | [facility] | (no reaction) | (no severity) | | | [facility] | | | + + + + + + | (no date) | CEFUROXIME | [facility] | (no reaction) | (no severity) | | | AXETIL | [place] | | | + + + + + + | (no date) | CEFUROXIME | [facility] | (no reaction) | (no severity) | | | AXETIL | [facility] | | | + + + + + + | (no date) | CEFUROXIME | [facility] | (no reaction) | (no severity) | | | | [place] | | | + + + + + + | (no date) | CEFUROXIME | [facility] | (no reaction) | (no severity) | | | [facility] | | | + + + + + + | (no date) | ESOMEPRAZOLE | [facility] | (no reaction) | (no severity) | | | MAGNESIUM | [place] | | | + + + + + + | (no date) | ESOMEPRAZOLE | [facility] | (no reaction) | (no severity) | | | MAGNESIUM | [facility] | | | + + + + + + | (no date) | PENICILLINS | [facility] | (no reaction) | (no severity) | | | | [place] | | | + + + + + + | (no date) | PENICILLINS | [facility] | (no reaction) | (no severity) | | | [facility] | | | + + + + + + | (no date) | CEFUROXIME | [facility] | (no reaction) | (no severity) | | | | [place] | | | + + + + + + | (no date) | Cefuroxime | [facility] | (no reaction) | (no severity) | | | | [facility] | | | + + + + + + | (no date) | Penicillin | [facility] | (no reaction) | (no severity) | | | | [facility] | | | + + + + + + | (no date) | CEFUROXIME | [facility] | (no reaction) | (no severity) | | | AXETIL | [place] | | | + + + + + + Encounters No information. Functional Status No information. Immunizations No information. Medications + + + + | date | description | facility | + + + + | 2022-08-24 00:00 | PHENAZOPYRIDINE HCL | [facility] | + + + + | 2022-06-05 00:00 | CRANBERRY CONC/ASCORBIC | [facility] | | | ACID | | + + + + | 2022-08-20 00:00 | CRANBERRY CONC/ASCORBIC | [facility] | | | ACID | | + + + + | 2022-08-23 00:00 | CRANBERRY CONC/ASCORBIC | [facility] | | | ACID | | + + + + | 2022-08-23 00:00 | CRANBERRY CONC/ASCORBIC | [facility] | | | ACID | | + + + + | 2022-08-24 00:00 | CRANBERRY CONC/ASCORBIC | [facility] | | | ACID | | + + + + | 2022-09-26 00:00 | CRANBERRY CONC/ASCORBIC | [facility] | | | ACID | | + + + + | 2022-06-05 00:00 | NITROFURANTOIN | [facility] | | | MONOHYD/M-CRYST | | + + + + | 2022-08-20 00:00 | NITROFURANTOIN | [facility] | | | MONOHYD/M-CRYST | | + + + + | 2022-08-23 00:00 | NITROFURANTOIN | [facility] | | | MONOHYD/M-CRYST | | + + + + | 2022-08-23 00:00 | NITROFURANTOIN | [facility] | | | MONOHYD/M-CRYST | | + + + + | 2022-08-24 00:00 | NITROFURANTOIN | [facility] | | | MONOHYD/M-CRYST | | + + + + | 2022-09-26 00:00 | NITROFURANTOIN | [facility] | | | MONOHYD/M-CRYST | | + + + + | 2022-06-01 00:00 | nitrofurantoin | [facility] | | | macrocrystals 25 mg / | | | | nitrofurantoin monohydrate | | | | 75 mg oral capsule | | + + + + | 2019-08-21 00:00 | microencapsulated | [facility] | | | potassium chloride 10 meq | | | | extended release oral | | | | tablet | | + + + + | 2022-08-23 00:00 | AMLODIPINE BESYLATE | [facility] | + + + + | 2022-08-23 00:00 | AMLODIPINE BESYLATE | [facility] | + + + + | 2022-08-24 00:00 | AMLODIPINE BESYLATE | [facility] | + + + + | 2022-09-26 00:00 | AMLODIPINE BESYLATE | [facility] | + + + + | 2019-07-12 00:00 | amlodipine 5 mg oral | [facility] | | | tablet | | + + + + | 2021-12-22 00:00 | CIMETIDINE | [facility] | + + + + | 2022-06-01 00:00 | CIMETIDINE | [facility] | + + + + | 2022-06-05 00:00 | CIMETIDINE | [facility] | + + + + | 2022-08-20 00:00 | CIMETIDINE | [facility] | + + + + | 2022-08-23 00:00 | CIMETIDINE | [facility] | + + + + | 2022-08-23 00:00 | CIMETIDINE | [facility] | + + + + | 2022-08-24 00:00 | CIMETIDINE | [facility] | + + + + | 2022-09-26 00:00 | CIMETIDINE | [facility] | + + + + | 2019-08-13 00:00 | cimetidine 200 mg oral | [facility] | | | tablet | | + + + + | 2021-12-22 00:00 | ESTRADIOL | [facility] | + + + + | 2022-06-01 00:00 | ESTRADIOL | [facility] | + + + + | 2022-06-05 00:00 | ESTRADIOL | [facility] | + + + + | 2022-08-20 00:00 | ESTRADIOL | [facility] | + + + + | 2022-08-23 00:00 | ESTRADIOL | [facility] | + + + + | 2022-08-23 00:00 | ESTRADIOL | [facility] | + + + + | 2022-08-24 00:00 | ESTRADIOL | [facility] | + + + + | 2022-09-26 00:00 | ESTRADIOL | [facility] | + + + + | 2019-08-13 00:00 | estradiol 0.5 mg oral | [facility] | | | tablet | | + + + + | 2021-12-22 00:00 | LOVASTATIN | [facility] | + + + + | 2022-06-01 00:00 | LOVASTATIN | [facility] | + + + + | 2022-06-05 00:00 | LOVASTATIN | [facility] | + + + + | 2022-08-20 00:00 | LOVASTATIN | [facility] | + + + + | 2022-08-23 00:00 | LOVASTATIN | [facility] | + + + + | 2022-08-23 00:00 | LOVASTATIN | [facility] | + + + + | 2022-08-24 00:00 | LOVASTATIN | [facility] | + + + + | 2022-09-26 00:00 | LOVASTATIN | [facility] | + + + + | 2019-09-27 00:00 | lovastatin 10 mg oral | [facility] | | | tablet | | + + + + | 2022-08-20 00:00 | OMEPRAZOLE | [facility] | + + + + | 2022-08-23 00:00 | OMEPRAZOLE | [facility] | + + + + | 2022-08-23 00:00 | OMEPRAZOLE | [facility] | + + + + | 2022-08-24 00:00 | OMEPRAZOLE | [facility] | + + + + | 2022-09-26 00:00 | OMEPRAZOLE | [facility] | + + + + | 2022-07-09 00:00 | omeprazole 20 mg (as | [facility] | | | omeprazole magnesium 20.6 | | | | mg) delayed release oral | | | | capsule | | + + + + | 2022-06-05 00:00 | Cholecalciferol (Vitamin | [facility] | | | D3) | | + + + + | 2022-08-20 00:00 | Cholecalciferol (Vitamin | [facility] | | | D3) | | + + + + | 2022-08-23 00:00 | Cholecalciferol (Vitamin | [facility] | | | D3) | | + + + + | 2022-08-23 00:00 | Cholecalciferol (Vitamin | [facility] | | | D3) | | + + + + | 2022-08-24 00:00 | Cholecalciferol (Vitamin | [facility] | | | D3) | | + + + + | 2022-09-26 00:00 | Cholecalciferol (Vitamin | [facility] | | | D3) | | + + + + | 2019-08-13 00:00 | hydrochlorothiazide 12.5 | [facility] | | | mg oral capsule | | + + + + | 2020-02-01 00:00 | CIPROFLOXACIN HCL | [facility] | + + + + | 2020-02-01 00:00 | CIPROFLOXACIN HCL | [facility] | + + + + | 2020-02-01 00:00 | CIPROFLOXACIN HCL | [facility] | + + + + | 2021-12-22 00:00 | AMLODIPINE BESYLATE | [facility] | + + + + | 2022-06-01 00:00 | AMLODIPINE BESYLATE | [facility] | + + + + | 2022-06-05 00:00 | AMLODIPINE BESYLATE | [facility] | + + + + | 2022-08-20 00:00 | AMLODIPINE BESYLATE | [facility] | + + + + | 2022-08-23 00:00 | AMLODIPINE BESYLATE | [facility] | + + + + | 2022-08-23 00:00 | AMLODIPINE BESYLATE | [facility] | + + + + | 2022-08-24 00:00 | AMLODIPINE BESYLATE | [facility] | + + + + | 2022-09-26 00:00 | AMLODIPINE BESYLATE | [facility] | + + + + | 2010-06-04 00:00 | vitamin d3 25 mcg oral | [facility] | | | capsule | | + + + + | 2022-06-05 00:00 | CALCIUM CARBONATE | [facility] | + + + + | 2022-08-20 00:00 | CALCIUM CARBONATE | [facility] | + + + + | 2022-08-23 00:00 | CALCIUM CARBONATE | [facility] | + + + + | 2022-08-23 00:00 | CALCIUM CARBONATE | [facility] | + + + + | 2022-08-24 00:00 | CALCIUM CARBONATE | [facility] | + + + + | 2022-09-26 00:00 | CALCIUM CARBONATE | [facility] | + + + + | 2022-07-25 00:00 | estradiol 0.1 mg/ml | [facility] [place] | | | vaginal cream | | + + + + | 2022-06-05 00:00 | LEVOFLOXACIN | [facility] | + + + + | 2022-08-23 00:00 | LEVOFLOXACIN | [facility] | + + + + | 2022-06-05 00:00 | levofloxacin 750 mg oral | [facility] [place] | | | tablet | | + + + + | 2021-12-22 00:00 | CALCIUM CARBONATE | [facility] | + + + + | 2022-06-01 00:00 | CALCIUM CARBONATE | [facility] | + + + + | 2022-07-28 00:00 | Drug or medicament | [facility] | | | (substance) | | + + + + | 2021-12-22 00:00 | HYDROCHLOROTHIAZIDE | [facility] | + + + + | 2022-06-01 00:00 | HYDROCHLOROTHIAZIDE | [facility] | + + + + | 2022-06-05 00:00 | HYDROCHLOROTHIAZIDE | [facility] | + + + + | 2022-08-20 00:00 | HYDROCHLOROTHIAZIDE | [facility] | + + + + | 2022-08-23 00:00 | HYDROCHLOROTHIAZIDE | [facility] | + + + + | 2022-08-23 00:00 | HYDROCHLOROTHIAZIDE | [facility] | + + + + | 2022-08-24 00:00 | HYDROCHLOROTHIAZIDE | [facility] | + + + + | 2022-09-26 00:00 | HYDROCHLOROTHIAZIDE | [facility] | + + + + | 2021-12-22 00:00 | Cholecalciferol (Vitamin | [facility] | | | D3) | | + + + + | 2022-06-01 00:00 | Cholecalciferol (Vitamin | [facility] | | | D3) | | + + + + | 2021-12-22 00:00 | NITROFURANTOIN MONOHYD | [facility] | | | MACROCR | | + + + + | 2022-06-01 00:00 | NITROFURANTOIN MONOHYD | [facility] | | | MACROCR | | + + + + | 2022-08-20 00:00 | NITROFURANTOIN MONOHYD | [facility] | | | MACROCR | | + + + + | 2021-12-22 00:00 | CRANBERRY EXTRACT | [facility] | + + + + | 2022-06-01 00:00 | CRANBERRY EXTRACT | [facility] | + + + + | 2022-06-05 00:00 | OXYBUTYNIN CHLORIDE | [facility] | + + + + | 2022-08-20 00:00 | OXYBUTYNIN CHLORIDE | [facility] | + + + + | 2022-08-23 00:00 | OXYBUTYNIN CHLORIDE | [facility] | + + + + | 2022-08-23 00:00 | OXYBUTYNIN CHLORIDE | [facility] | + + + + | 2022-08-24 00:00 | OXYBUTYNIN CHLORIDE | [facility] | + + + + | 2022-09-26 00:00 | OXYBUTYNIN CHLORIDE | [facility] | + + + + | 2022-06-01 00:00 | OXYBUTYNIN CHLORIDE | [facility] | + + + + | 2022-08-23 00:00 | TAMSULOSIN HCL | [facility] | + + + + | 2022-08-23 00:00 | TAMSULOSIN HCL | [facility] | + + + + | 2022-08-24 00:00 | TAMSULOSIN HCL | [facility] | + + + + | 2022-09-26 00:00 | TAMSULOSIN HCL | [facility] | + + + + | 2022-07-12 00:00 | tamsulosin hydrochloride | [facility] | | | 0.4 mg oral capsule | | + + + + | 2022-06-01 00:00 | TAMSULOSIN HCL | [facility] | + + + + | 2022-06-01 00:00 | TAMSULOSIN HCL | [facility] | + + + + | 2022-06-01 00:00 | TAMSULOSIN HCL | [facility] | + + + + | 2021-12-22 00:00 | POLYETHYLENE GLYCOL 3350 | [facility] | + + + + | 2022-06-01 00:00 | POLYETHYLENE GLYCOL 3350 | [facility] | + + + + | 2022-06-05 00:00 | POLYETHYLENE GLYCOL 3350 | [facility] | + + + + | 2022-08-20 00:00 | POLYETHYLENE GLYCOL 3350 | [facility] | + + + + | 2022-08-23 00:00 | POLYETHYLENE GLYCOL 3350 | [facility] | + + + + | 2022-08-23 00:00 | POLYETHYLENE GLYCOL 3350 | [facility] | + + + + | 2022-08-24 00:00 | POLYETHYLENE GLYCOL 3350 | [facility] | + + + + | 2022-09-26 00:00 | POLYETHYLENE GLYCOL 3350 | [facility] | + + + + | 2022-07-25 00:00 | estrace 0.01 % vaginal | [facility] | | | cream | | + + + + | 2021-12-22 00:00 | LEVOTHYROXINE SODIUM | [facility] | + + + + | 2022-06-01 00:00 | LEVOTHYROXINE SODIUM | [facility] | + + + + | 2022-06-05 00:00 | LEVOTHYROXINE SODIUM | [facility] | + + + + | 2022-08-20 00:00 | LEVOTHYROXINE SODIUM | [facility] | + + + + | 2022-08-23 00:00 | LEVOTHYROXINE SODIUM | [facility] | + + + + | 2022-08-23 00:00 | LEVOTHYROXINE SODIUM | [facility] | + + + + | 2022-08-24 00:00 | LEVOTHYROXINE SODIUM | [facility] | + + + + | 2020-09-03 00:00 | levothyroxine sodium 0.025 | [facility] | | | mg oral tablet | | + + + + | 2022-06-05 00:00 | LEVOTHYROXINE SODIUM | [facility] | + + + + | 2022-08-20 00:00 | LEVOTHYROXINE SODIUM | [facility] | + + + + | 2022-08-23 00:00 | LEVOTHYROXINE SODIUM | [facility] | + + + + | 2022-08-23 00:00 | LEVOTHYROXINE SODIUM | [facility] | + + + + | 2022-08-24 00:00 | LEVOTHYROXINE SODIUM | [facility] | + + + + | 2020-09-03 00:00 | levothyroxine sodium 0.05 | [facility] | | | mg oral tablet | | + + + + | 2022-09-26 00:00 | LEVOTHYROXINE SODIUM | [facility] | + + + + Problems + + + + | date | description | facility | + + + + | 2008-08-04 00:00 | hld - hyperlipidemia | [facility] | + + + + | 2008-08-04 00:00 | HLD (hyperlipidemia) | [facility] | + + + + | 2009-05-28 00:00 | bone loss | [facility] | + + + + | 2009-05-28 00:00 | cts - carpal tunnel | [facility] [place] | | | syndrome | | + + + + | 2009-05-28 00:00 | Carpal tunnel syndrome | [facility] [place] | + + + + | 2009-05-28 00:00 | Osteopenia | [facility] [place] | + + + + | 2009-06-02 00:00 | hypothyroidism (disorder) | [facility] [place] | + + + + | 2009-06-02 00:00 | Adult hypothyroidism | [facility] [place] | + + + + | 2009-06-25 00:00 | history of colonic polyp | [facility] | + + + + | 2009-06-25 00:00 | History of colon polyps | [facility] | + + + + | 2009-08-05 00:00 | anxiousness | [facility] | + + + + | 2009-08-05 00:00 | Anxiety | [facility] | + + + + | 2009-08-27 00:00 | history of urinary disease | [facility] [place] | | | (situation) | | + + + + | 2009-08-27 00:00 | H/O urinary disorder | [facility] [place] | + + + + | 2012-05-03 00:00 | dysphagia (disorder) | [facility] [place] | + + + + | 2012-05-03 00:00 | Dysphagia | [facility] [place] | + + + + | 2012-06-18 00:00 | menieres disease of left | [facility] [place] | | | inner ear | | + + + + | 2012-06-18 00:00 | 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 | | + + + + | 2012-08-08 00:00 | laryngopharyngeal reflux | [facility] [place] | | | (disorder) | | + + + + | 2012-08-08 00:00 | Laryngopharyngeal reflux | [facility] | + + + + | 2012-10-10 00:00 | neurosensory deafness | [facility] [place] | + + + + | 2012-10-10 00:00 | Deafness, sensorineural | [facility] [place] | + + + + | 2015-07-22 00:00 | acne erythematosa | [facility] [place] | + + + + | 2015-07-22 00:00 | postmenopausal | [facility] | + + + + | 2015-07-22 00:00 | Rosacea | [facility] [place] | + + + + | 2015-07-22 00:00 | Hormone replacement | [facility] [place] | | | therapy (postmenopausal) | | + + + + | 2016-01-07 00:00 | herniated urinary bladder | [facility] [place] | | | (disorder) | | + + + + | 2016-01-07 00:00 | Cystocele | [facility] | + + + + | 2017-01-04 00:00 | abdominal bruit (finding) | [facility] | + + + + | 2017-01-04 00:00 | Abdominal bruit | [facility] | + + + + | 2017-01-20 00:00 | systemic primary arterial | [facility] | | | hypertension | | + + + + | 2017-01-20 00:00 | Essential hypertension | [facility] | + + + + | 2017-09-26 00:00 | tubular adenoma of colon | [facility] | | | (disorder) | | + + + + | 2017-09-26 00:00 | Tubular adenoma of colon | [facility] | + + + + | 2017-12-18 00:00 | pulmonary nodule | [facility] | + + + + | 2017-12-18 00:00 | Pulmonary nodule | [facility] | + + + + | 2019-08-13 08:23:44 | Hypothyroidism, | [facility] | | | unspecified | | + + + + | 2019-08-13 08:23:44 | Mixed hyperlipidemia | [facility] | | | | | + + + + | 2019-08-13 08:23:44 | Meniere's disease, left | [facility] | | | ear | | + + + + | 2019-08-13 08:23:44 | Essential (primary) | [facility] | | | hypertension | | + + + + | 2019-08-13 08:23:44 | Encounter for general | [facility] | | | adult medical examination | | | | without abnormal findings | | + + + + | 2019-08-13 08:23:44 | FPC (current) use of | [facility] | | | aspirin | | + + + + | 2019-08-13 08:23:44 | Hormone replacement | [facility] | | | therapy | | + + + + | 2020-02-01 00:00 | Back pain | [facility] | + + + + | 2020-02-01 00:00 | Back pain | [facility] | + + + + | 2020-02-01 00:00 | Back pain | [facility] | + + + + | 2020-02-01 00:00 | Urinary tract infection | [facility] | + + + + 2020-02-01 00:00 | Urinary tract infection | [facility] | + + + + | 2020-02-01 00:00 | Urinary tract infection | [facility] | + + + + | 2020-02-10 00:00 | cholelithiasis, non | [facility] | | | obstructive | | + + + + | 2020-02-10 00:00 | Calculus of gallbladder | [facility] | | | without cholecystitis | | | | without obstruction | | + + + + | 2020-02-10 15:52:25 | Acute cystitis without | [facility] | | | hematuria | | + + + + | 2021-06-22 00:00 | Retention of urine | [facility] | + + + + | 2021-06-22 00:00 | Retention of urine | [facility] | + + + + | 2021-06-22 00:00 | Retention of urine | [facility] | + + + + | 2021-12-22 00:00 | Adverse effect of drug | [facility] | + + + + | 2021-12-22 00:00 | Adverse effect of drug | [facility] | + + + + | 2021-12-22 00:00 | Adverse effect of drug | [facility] | + + + + | 2022-05-30 11:59 | ENCNTR SCREEN MAMMOGRAM | [facility] | | | FOR MALIGNANT NEOPLASM OF | | | | BREAST | | + + + + | 2022-06-01 11:19 | HYPOTHYROIDISM, | [facility] | | | UNSPECIFIED | | + + + + | 2022-06-01 11:19 | PURE HYPERCHOLESTEROLEMIA, | [facility] | | | UNSPECIFIED | | + + + + | 2022-06-01 11:19 | Essential (primary) | [facility] | | | hypertension | | + + + + | 2022-06-01 11:19 | RETENTION OF URINE, | [facility] | | | UNSPECIFIED | | + + + + | 2022-06-01 11:19 | 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 (CURRENT) | [facility] | | | DRUG THERAPY | | + + + + | 2022-06-01 11:19 | ALLERGY STATUS TO | [facility] | | | PENICILLIN | | + + + + | 2022-06-01 11:19 | ALLERGY STATUS TO OTH | [facility] | | | DRUG/MEDS/BIOL SUBST STATUS | | | | | | + + + + | 2022-06-03 00:00 | Intractable vomiting with | [facility] | | | nausea | | + + + + | 2022-06-03 00:00 | Intractable vomiting with | [facility] | | | nausea | | + + + + | 2022-06-03 10:57 | HYPOTHYROIDISM, | [facility] | | | UNSPECIFIED | | + + + + | 2022-06-03 10:57 | PURE HYPERCHOLESTEROLEMIA, | [facility] | | | UNSPECIFIED | | + + + + | 2022-06-03 10:57 | HYPOMAGNESEMIA | [facility] | + + + + | 2022-06-03 10:57 | HYPO-OSMOLALITY AND | [facility] | | | HYPONATREMIA | | + + + + | 2022-06-03 10:57 | HYPOKALEMIA | [facility] | + + + + | 2022-06-03 10:57 | Essential (primary) | [facility] | | | hypertension | | + + + + | 2022-06-03 10:57 | CALCULUS OF GALLBLADDER | [facility] | | | W/O CHOLECYSTITIS W/O OBST | | + + + + | 2022-06-03 10:57 | OTHER OBSTRUCTIVE AND | [facility] | | | REFLUX UROPATHY | | + + + + | 2022-06-03 10:57 | ACUTE CYSTITIS WITHOUT | [facility] | | | HEMATURIA | | + + + + | 2022-06-03 10:57 | CYSTOCELE, UNSPECIFIED | [facility] | + + + + | 2022-06-03 10:57 | RETENTION OF URINE, | [facility] | | | UNSPECIFIED | | + + + + | 2022-06-03 10:57 | Do not resuscitate status | [facility] | | | (Z66) | | + + + + | 2022-06-03 10:57 | HORMONE REPLACEMENT | [facility] | | | THERAPY | | + + + + | 2022-06-03 10:57 | OTHER [facility] (CURRENT) | [facility] | | | DRUG THERAPY | | + + + + | 2022-06-03 10:57 | ALLERGY STATUS TO | [facility] | | | PENICILLIN | | + + + + | 2022-06-03 10:57 | ALLERGY STATUS TO | [facility] | | | SULFONAMIDES STATUS | | + + + + | 2022-06-03 10:57 | ALLERGY STATUS TO OTH | [facility] | | | DRUG/MEDS/BIOL SUBST STATUS | | | | | | + + + + | 2022-06-03 10:57 | ACQUIRED ABSENCE OF BOTH | [facility] | | | CERVIX AND UTERUS | | + + + + | 2022-07-25 00:00 | Retention of urine, | [facility] | | | unspecified | | + + + + | 2022-07-25 09:12:22 | Retention of urine, | [facility] | | | unspecified | | + + + + | 2022-08-20 00:00 | Self-catheterizes urinary | [facility] | | | bladder | | + + + + | 2022-08-20 00:00 | Self-catheterizes urinary | [facility] | | | bladder | | + + + + | 2022-08-20 14:51 | HYPOTHYROIDISM, | [facility] | | | UNSPECIFIED | | + + + + | 2022-08-20 14:51 | PURE HYPERCHOLESTEROLEMIA, | [facility] | | | UNSPECIFIED | | + + + + | 2022-08-20 14:51 | Essential (primary) | [facility] | | | hypertension | | + + + + | 2022-08-20 14:51 | URINARY TRACT INFECTION, | [facility] | | | SITE NOT SPECIFIED | | + + + + | 2022-08-20 14:51 | 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 (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) | [facility] | | | DRUG THERAPY | | + + + + | 2022-08-20 14:51 | ALLERGY STATUS TO | [facility] | | | PENICILLIN | | + + + + | 2022-08-20 14:51 | ALLERGY STATUS TO OTHER | [facility] | | | ANTIBIOTIC AGENTS STATUS | | + + + + | 2022-08-20 14:51 | ALLERGY STATUS TO | [facility] | | | SULFONAMIDES STATUS | | + + + + | 2022-08-20 14:51 | ALLERGY STATUS TO OTH | [facility] | | | DRUG/MEDS/BIOL SUBST STATUS | | | | | | + + + + | 2022-08-20 14:51 | PRESENCE OF UROGENITAL | [facility] | | | IMPLANTS | | + + + + | 2022-08-21 07:44 | HYPOTHYROIDISM, | [facility] | | | UNSPECIFIED | | + + + + | 2022-08-21 07:44 | HYPERLIPIDEMIA, | [facility] | | | UNSPECIFIED | | + + + + | 2022-08-21 07:44 | HYPOMAGNESEMIA | [facility] | + + + + | 2022-08-21 07:44 | HYPOKALEMIA | [facility] | + + + + | 2022-08-21 07:44 | Essential (primary) | [facility] | | | hypertension | | + + + + | 2022-08-21 07:44 | URINARY TRACT INFECTION, | [facility] | | | SITE NOT SPECIFIED | | + + + + | 2022-08-21 07:44 | Do not resuscitate status | [facility] | | | (Z66) | | + + + + | 2022-08-21 07:44 | ALLERGY STATUS TO | [facility] | | | PENICILLIN | | + + + + | 2022-08-21 07:44 | ALLERGY STATUS TO | [facility] | | | SULFONAMIDES STATUS | | + + + + | 2022-08-21 07:44 | ALLERGY STATUS TO OTH | [facility] | | | DRUG/MEDS/BIOL SUBST STATUS | | | | | | + + + + | 2022-08-22 00:00 | Bandemia | [facility] | + + + + | 2022-08-22 00:00 | Bandemia | [facility] | + + + + | 2022-08-22 00:00 | Syncope | [facility] | + + + + | 2022-08-22 00:00 | Syncope | [facility] | + + + + | 2022-08-23 19:40 | HYPOTHYROIDISM, | [facility] | | | UNSPECIFIED | | + + + + | 2022-08-23 19:40 | PURE HYPERCHOLESTEROLEMIA, | [facility] | | | UNSPECIFIED | | + + + + | 2022-08-23 19:40 | Essential (primary) | [facility] | | | hypertension | | + + + + | 2022-08-23 19:40 | RETENTION OF URINE, | [facility] | | | UNSPECIFIED | | + + + + | 2022-08-23 19:40 | 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 (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) | [facility] | | | DRUG THERAPY | | + + + + | 2022-08-23 19:40 | ALLERGY STATUS TO | [facility] | | | PENICILLIN | | + + + + | 2022-08-23 19:40 | ALLERGY STATUS TO OTHER | [facility] | | | ANTIBIOTIC AGENTS STATUS | | + + + + | 2022-08-23 19:40 | ALLERGY STATUS TO | [facility] | | | SULFONAMIDES STATUS | | + + + + | 2022-08-23 19:40 | ALLERGY STATUS TO OTH | [facility] | | | DRUG/MEDS/BIOL SUBST STATUS | | | | | | + + + + | 2022-08-24 00:00 | Problem with Banerjee | [facility] | | | catheter | | + + + + | 2022-08-24 17:54 | HYPOTHYROIDISM, | [facility] | | | UNSPECIFIED | | + + + + | 2022-08-24 17:54 | PURE HYPERCHOLESTEROLEMIA, | [facility] | | | UNSPECIFIED | | + + + + | 2022-08-24 17:54 | Essential (primary) | [facility] | | | hypertension | | + + + + | 2022-08-24 17:54 | MECH COMPL OF OTHER | [facility] | | | URINARY CATHETER, INITIAL | | | | ENCOUNTER | | + + + + | 2022-08-24 17:54 | URINARY CATHETERIZATION | [facility] | | | CAUSE ABN REACT/COMPL, W/O | | + + + + | 2022-08-24 17:54 | OTHER [facility] (CURRENT) | [facility] | | | DRUG THERAPY | | + + + + | 2022-08-24 17:54 | ALLERGY STATUS TO | [facility] | | | PENICILLIN | | + + + + | 2022-08-24 17:54 | ALLERGY STATUS TO OTHER | [facility] | | | ANTIBIOTIC AGENTS STATUS | | + + + + | 2022-08-24 17:54 | ALLERGY STATUS TO | [facility] | | | SULFONAMIDES STATUS | | + + + + | 2022-09-26 00:00 | Hypomagnesemia | [facility] | + + + + | 2022-09-26 00:00 | Dehydration | [facility] | + + + + | 2022-09-26 00:00 | Hypokalemia | [facility] | + + + + | 2022-09-26 [...] + + | 2022-09-26 19:26 | OTHER [facility] (CURRENT) | [facility] | | | DRUG THERAPY | | + + + + | 2022-09-26 19:26 | ALLERGY STATUS TO | [facility] | | | PENICILLIN | | + + + + | 2022-09-26 19:26 | ALLERGY STATUS TO OTHER | [facility] | | | ANTIBIOTIC AGENTS STATUS | | + + + + Procedures + + + + | date | description | facility | + + + + | 2022-07-21 00:00 | ND CYSTOURETHROSCOPY | [facility] | + + + + Results/Labs +--------+--------+ +---------+--------+---------+ | test | date | facility | value | unit | notes | +--------+--------+ +---------+--------+---------+ + + | Result panel 1 | + + + + + +-------+ + + | | 2021-12-22 | [facility] | 7.0 | (missing) | (missing) | | (unavailable | 20:10 [facility] | | | + + + +-------+ + + + + | Result panel 2 | + + + + + +--------+ + + | | 2021-12-22 | [facility] | 4.51 | (missing) | (missing) | | (unavailable | 20:10 [facility] | | | | + + + +--------+ + + + + | Result panel 3 | + + + + + +--------+ + + | | 2021-12-22 | [facility] | 14.1 | (missing) | (missing) | | (unavailable | 20:10 [facility] | | | | + + + +--------+ + + + + | Result panel 4 | + + + + + +--------+ + + | | 2021-12-22 | [facility] | 40.8 | (missing) | (missing) | | (unavailable | 20:10 [facility] | | | | + + + +--------+ + + + + | Result panel 5 | + + + + + +--------+ + + | | 2021-12-22 | [facility] | 90.3 | (missing) | (missing) | | (unavailable | 20:10 [facility] | | | | + + + +--------+ + + + + | Result panel 6 | + + + + + +--------+ + + | | 2021-12-22 | [facility] | 31.1 | (missing) | (missing) | | (unavailable | 20:10 [facility] | | | | + + + +--------+ + + + + | Result panel 7 | + + + + + +--------+ + + | | 2021-12-22 | [facility] | 34.5 | (missing) | (missing) | | (unavailable | 20:10 [facility] | | | | + + + +--------+ + + + + | Result panel 8 | + + + + + +--------+ + + | | 2021-12-22 | [facility] | 13.0 | (missing) | (missing) | | (unavailable | 20:10 [facility] | | | | + + + +--------+ + + + + | Result panel 9 | + + + + + +-------+ + + | | 2021-12-22 | [facility] | 251 | (missing) | (missing) | | (unavailable | 20:10 [facility] | | | + + + +-------+ + + + + | Result panel 10 | + + + + + +--------+ + + | | 2021-12-22 | [facility] | 60.7 | (missing) | (missing) | | (unavailable | 20:10 [facility] | | | | + + + +--------+ + + + + | Result panel 11 | + + + + + +--------+ + + | | 2021-12-22 | [facility] | 24.4 | (missing) | (missing) | | (unavailable | 20:10 [facility] | | | | + + + +--------+ + + + + | Result panel 12 | + + + + + +--------+ + + | | 2021-12-22 | [facility] | 13.4 | (missing) | (missing) | | (unavailable | 20:10 [facility] | | | | + + + +--------+ + + + + | Result panel 13 | + + + + + +-------+ + + | | 2021-12-22 | [facility] | 0.6 | (missing) | (missing) | | (unavailable | 20:10 [facility] | | | | + + + +-------+ + + + + | Result panel 14 | + + + + + +-------+ + + | | 2021-12-22 | [facility] | 0.9 | (missing) | (missing) | | (unavailable | 20:10 [facility] | | | | + + + +-------+ + + + + | Result panel 15 | + + + + + +-------+---------+ + | | 2021-12-22 | [facility] | 112 | mg/dL | (missing) | | (unavailable | 20:10 [facility] | | | | + + + +-------+---------+ + + + | Result panel 16 | + + + + + +------+---------+ + | | 2021-12-22 | [facility] | 10 | mg/dL | (missing) | | (unavailable | 20:10 [facility] | | | | + + + +------+---------+ + + + | Result panel 17 | + + + + + +--------+---------+ + | | 2021-12-22 | [facility] | 1.10 | mg/dL | (missing) | | (unavailable | 20:10 [facility] | | | | + + + +--------+---------+ + + + | Result panel 18 | + + + + + +------+ + + | | 2021-12-22 | [facility] | 50 | (missing) | (missing) | | (unavailable | 20:10 [facility] | | | | + + + +------+ + + + + | Result panel 19 | + + + + + +--------+ + + | | 2021-12-22 | [facility] | 9.09 | (missing) | (missing) | | (unavailable | 20:10 [facility] | | | | + + + +--------+ + + + + | Result panel 20 | + + + + + +-------+ + + | | 2021-12-22 | [facility] | 126 | (missing) | (missing) | | (unavailable | 20:10 [facility] | | | | + + + +-------+ + + + + | Result panel 21 | + + + + + +-------+ + + | | 2021-12-22 | [facility] | 3.1 | (missing) | (missing) | | (unavailable | 20:10 [facility] | | | | + + + +-------+ + + + + | Result panel 22 | + + + + + +------+ + + | | 2021-12-22 | [facility] | 89 | (missing) | (missing) | | (unavailable | 20:10 [facility] | | | | + + + +------+ + + + + | Result panel 23 | + + + + + +------+ + + | | 2021-12-22 | [facility] | 26 | (missing) | (missing) | | (unavailable | 20:10 [facility] | | | | + + + +------+ + + + + | Result panel 24 | + + + + + +--------+ + + | | 2021-12-22 | [facility] | 14.1 | (missing) | (missing) | | (unavailable | 20:10 [facility] | | | | + + + +--------+ + + + + | Result panel 25 | + + + + + +-------+---------+ + | | 2021-12-22 | [facility] | 9.2 | mg/dL | (missing) | | (unavailable | 20:10 [facility] | | | | + + + +-------+---------+ + + + | Result panel 26 | + + + + + +-------+ + + | | 2021-12-22 | [facility] | 8.5 | (missing) | (missing) | | (unavailable | 20:10 [facility] | | | | + + + +-------+ + + + + | Result panel 27 | + + + + + +-------+ + + | | 2021-12-22 | [facility] | 4.2 | (missing) | (missing) | | (unavailable | 20:10 [facility] | | | | + + + +-------+ + + + + | Result panel 28 | + + + + + +-------+ + + | | 2021-12-22 | [facility] | 4.3 | (missing) | (missing) | | (unavailable | 20:10 [facility] | | | | + + + +-------+ + + + + | Result panel 29 | + + + + + +--------+ + + | | 2021-12-22 | [facility] | 0.98 | (missing) | (missing) | | (unavailable | 20:10 [facility] | | | | + + + +--------+ + + + + | Result panel 30 | + + + + + +-------+ + + | | 2021-12-22 | [facility] | 0.8 | (missing) | (missing) | | (unavailable | 20:10 [facility] | | | | + + + +-------+ + + + + | Result panel 31 | + + + + + +------+ + + | | 2021-12-22 | [facility] | 22 | (missing) | (missing) | | (unavailable | 20:10 [facility] | | | | + + + +------+ + + + + | Result panel 32 | + + + + + +------+ + + | | 2021-12-22 | [facility] | 19 | (missing) | (missing) | | (unavailable | 20:10 [facility] | | | | + + + +------+ + + + + | Result panel 33 | + + + + + +------+ + + | | 2021-12-22 | [facility] | 77 | (missing) | (missing) | | (unavailable | 20:10 [facility] | | | | + + + +------+ + + + + | Result panel 34 | + + + + + +-------+ + + | | 2022-06-01 | [facility] | 9.4 | (missing) | (missing) | | (unavailable | 11:50:07 [facility] | | | | + + + +-------+ + + + + | Result panel 35 | + + + + + +--------+ + + | | 2022-06-01 | [facility] | 4.23 | (missing) | (missing) | | (unavailable | 11:50:07 [facility] | | | | + + + +--------+ + + + + | Result panel 36 | + + + + + +--------+ + + | | 2022-06-01 | [facility] | 12.8 | (missing) | (missing) | | (unavailable | 11:50:07 [facility] | | | | + + + +--------+ + + + + | Result panel 37 | + + + + + +--------+ + + | | 2022-06-01 | [facility] | 37.6 | (missing) | (missing) | | (unavailable | 11:50:07 [facility] | | | | + + + +--------+ + + + + | Result panel 38 | + + + + + +--------+ + + | | 2022-06-01 | [facility] | 89.0 | (missing) | (missing) | | (unavailable | 11:50:07 [facility] | | | | + + + +--------+ + + + + | Result panel 39 | + + + + + +--------+ + + | | 2022-06-01 | [facility] | 30.2 | (missing) | (missing) | | (unavailable | 11:50:07 [facility] | | | | + + + +--------+ + + + + | Result panel 40 | + + + + + +--------+ + + | | 2022-06-01 | [facility] | 34.0 | (missing) | (missing) | | (unavailable | 11:50:07 [facility] | | | | + + + +--------+ + + + + | Result panel 41 | + + + + + +--------+ + + | | 2022-06-01 | [facility] | 12.3 | (missing) | (missing) | | (unavailable | 11:50:07 [facility] | | | | + + + +--------+ + + + + | Result panel 42 | + + + + + +-------+ + + | | 2022-06-01 | [facility] | 237 | (missing) | (missing) | | (unavailable | 11:50:07 [facility] | | | | + + + +-------+ + + + + | Result panel 43 | + + + + + +--------+ + + | | 2022-06-01 | [facility] | 79.4 | (missing) | (missing) | | (unavailable | 11:50:07 [facility] | | | | + + + +--------+ + + + + | Result panel 44 | + + + + + +--------+ + + | | 2022-06-01 | [facility] | 14.0 | (missing) | (missing) | | (unavailable | 11:50:07 [facility] | | | | + + + +--------+ + + + + | Result panel 45 | + + + + + +-------+ + + | | 2022-06-01 | [facility] | 6.1 | (missing) | (missing) | | (unavailable | 11:50:07 [facility] | | | | + + + +-------+ + + + + | Result panel 46 | + + + + + +-------+ + + | | 2022-06-01 | [facility] | 0.2 | (missing) | (missing) | | (unavailable | 11:50:07 [facility] | | | | + + + +-------+ + + + + | Result panel 47 | + + + + + +-------+ + + | | 2022-06-01 | [facility] | 0.3 | (missing) | (missing) | | (unavailable | 11:50:07 [facility] | | | | + + + +-------+ + + + + | Result panel 48 | + + + + + +-------+---------+ + | | 2022-06-01 | [facility] | 116 | mg/dL | (missing) | | (unavailable | 11:50:07 [facility] | | | | + + + +-------+---------+ + + + | Result panel 49 | + + + + + +------+---------+ + | | 2022-06-01 | [facility] | 12 | mg/dL | (missing) | | (unavailable | 11:50:07 [facility] | | | | + + + +------+---------+ + + + | Result panel 50 | + + + + + +--------+---------+ + | | 2022-06-01 | [facility] | 0.94 | mg/dL | (missing) | | (unavailable | 11:50:07 [facility] | | | | + + + +--------+---------+ + + + | Result panel 51 | + + + + + +------+ + + | | 2022-06-01 | [facility] | 60 | (missing) | (missing) | | (unavailable | 11:50:07 [facility] | | | | + + + +------+ + + + + | Result panel 52 | + + + + + +---------+ + + | | 2022-06-01 | [facility] | 12.76 | (missing) | (missing) | | (unavailable | 11:50:07 [facility] | | | | + + + +---------+ + + + + | Result panel 53 | + + + + + +-------+ + + | | 2022-06-01 | [facility] | 126 | (missing) | (missing) | | (unavailable | 11:50:07 [facility] | | | | + + + +-------+ + + + + | Result panel 54 | + + + + + +-------+ + + | | 2022-06-01 | [facility] | 3.5 | (missing) | (missing) | | (unavailable | 11:50:07 [facility] | | | | + + + +-------+ + + + + | Result panel 55 | + + + + + +------+ + + | | 2022-06-01 | [facility] | 90 | (missing) | (missing) | | (unavailable | 11:50:07 [facility] | | | | + + + +------+ + + + + | Result panel 56 | + + + + + +------+ + + | | 2022-06-01 | [facility] | 26 | (missing) | (missing) | | (unavailable | 11:50:07 [facility] | | | | + + + +------+ + + + + | Result panel 57 | + + + + + +--------+ + + | | 2022-06-01 | [facility] | 13.5 | (missing) | (missing) | | (unavailable | 11:50:07 [facility] | | | | + + + +--------+ + + + + | Result panel 58 | + + + + + +-------+---------+ + | | 2022-06-01 | [facility] | 8.8 | mg/dL | (missing) | | (unavailable | 11:50:07 [facility] | | | | + + + +-------+---------+ + + + | Result panel 59 | + + + + + +-------+---------+ + | | 2022-06-01 | [facility] | 1.4 | mg/dL | (missing) | | (unavailable | 11:50:07 [facility] | | | | + + + +-------+---------+ + + + | Result panel 60 | + + + + + +-------+ + + | | 2022-06-01 | [facility] | 7.2 | (missing) | (missing) | | (unavailable | 11:50:07 [facility] | | | | + + + +-------+ + + + + | Result panel 61 | + + + + + +-------+ + + | | 2022-06-01 | [facility] | 3.6 | (missing) | (missing) | | (unavailable | 11:50:07 [facility] | | | | + + + +-------+ + + + + | Result panel 62 | + + + + + +-------+ + + | | 2022-06-01 | [facility] | 3.6 | (missing) | (missing) | | (unavailable | 11:50:07 [facility] | | | | + + + +-------+ + + + + | Result panel 63 | + + + + + +--------+ + + | | 2022-06-01 | [facility] | 1.00 | (missing) | (missing) | | (unavailable | 11:50:07 [facility] | | | | + + + +--------+ + + + + | Result panel 64 | + + + + + +-------+ + + | | 2022-06-01 | [facility] | 0.8 | (missing) | (missing) | | (unavailable | 11:50:07 [facility] | | | | + + + +-------+ + + + + | Result panel 65 | + + + + + +------+ + + | | 2022-06-01 | [facility] | 22 | (missing) | (missing) | | (unavailable | 11:50:07 [facility] | | | | + + + +------+ + + + + | Result panel 66 | + + + + + +------+ + + | | 2022-06-01 | [facility] | 17 | (missing) | (missing) | | (unavailable | 11:50:07 [facility] | | | | + + + +------+ + + + + | Result panel 67 | + + + + + +------+ + + | | 2022-06-01 | [facility] | 68 | (missing) | (missing) | | (unavailable | 11:50:07 [facility] | | | | + + + +------+ + + + + | Result panel 68 | + + + + + + + + + | | 2022-06-01 | [facility] | YELLOW | (missing) | (missing) | | (unavailable | 13:00:07 [facility] | | | | + + + + + + + + + | Result panel 69 | + + + + + + + + + | | 2022-06-01 | [facility] | SL CLOUDY | (missing) | (missing) | | (unavailable | 13:00:07 | [facility] | | | | + + + + + + + + + | Result panel 70 | + + + + + + + + + | | 2022-06-01 | [facility] | NEGATIVE | (missing) | (missing) | | (unavailable | 13:00:07 | [facility] | | | | + + + + + + + + + | Result panel 71 | + + + + + + + + + | | 2022-06-01 | [facility] | NEGATIVE | (missing) | (missing) | | (unavailable | 13::07 | [facility] | | | | + + + + + + + + + | Result panel 72 | + + + + + +---------+ + + | | 2022-06-01 | [facility] | SMALL | (missing) | (missing) | | (unavailable | 13:00:07 | [facility] | | | | + + + +---------+ + + + + | Result panel 73 | + + + + + +---------+ + + | | 2022-06-01 | [facility] | 1.010 | (missing) | (missing) | | (unavailable | 13::07 | [facility] | | | | + + + +---------+ + + + + | Result panel 74 | + + + + + + + + + | | 2022-06-01 | [facility] | NEGATIVE | (missing) | (missing) | | (unavailable | 13:00:07 | [facility] | | | | + + + + + + + + + | Result panel 75 | + + + + + +-------+ + + | | 2022-06-01 | [facility] | 7.0 | (missing) | (missing) | | (unavailable | 13:00:07 | [facility] | | | | + + + +-------+ + + + + | Result panel 76 | + + + + + + + + + | | 2022-06-01 | [facility] | NEGATIVE | (missing) | (missing) | | (unavailable | 13:00:07 | [facility] | | | | + + + + + + + + + | Result panel 77 | + + + + + + + + + | | 2022-06-01 | [facility] | NORMAL | (missing) | (missing) | | (unavailable | 13:00:07 | [facility] | | | | + + + + + + + + + | Result panel 78 | + + + + + + + + + | | 2022-06-01 | [facility] | NEGATIVE | (missing) | (missing) | | (unavailable | 13:00:07 | [facility] | | | | + + + + + + + + + | Result panel 79 | + + + + + + + + + | | 2022-06-01 | [facility] | NEGATIVE | (missing) | (missing) | | (unavailable | 13:00:07 | [facility] | | | | + + + + + + + + + | Result panel 80 | + + + + + +------+ + + | | 2022-06-02 | [facility] | 89 | (missing) | (missing) | | (unavailable | 21:00:07 | [facility] | | | | + + + +------+ + + + + | Result panel 81 | + + + + + +-----+ + + | | 2022-06-02 | [facility] | 4 | (missing) | (missing) | | (unavailable | 21:00:07 | [facility] | | | | + + + +-----+ + + + + | Result panel 82 | + + + + + +-----+ + + | | 2022-06-02 | [facility] | 5 | (missing) | (missing) | | (unavailable | 21:00:07 | [facility] | | | | + + + +-----+ + + + + | Result panel 83 | + + + + + +-----+ + + | | 2022-06-02 | [facility] | 2 | (missing) | (missing) | | (unavailable | 21:00:07 | [facility] | | | | + + + +-----+ + + + + | Result panel 84 | + + + + + +-------+ + + | | 2022-06-02 | [facility] | 8.8 | (missing) | (missing) | | (unavailable | 21:00:07 | [facility] | | | | + + + +-------+ + + + + | Result panel 85 | + + + + + +-------+ + + | | 2022-06-02 | [facility] | 4.5 | (missing) | (missing) | | (unavailable | 21:00:07 | [facility] | | | | + + + +-------+ + + + + | Result panel 86 | + + + + + +-------+ + + | | 2022-06-02 | [facility] | 4.3 | (missing) | (missing) | | (unavailable | 21:00:07 | [facility] | | | | + + + +-------+ + + + + | Result panel 87 | + + + + + +--------+ + + | | 2022-06-02 | [facility] | 1.05 | (missing) | (missing) | | (unavailable | 21:00:07 | [facility] | | | | + + + +--------+ + + + + | Result panel 88 | + + + + + +-------+ + + | | 2022-06-02 | [facility] | 1.2 | (missing) | (missing) | | (unavailable | 21:00:07 | [facility] | | | | + + + +-------+ + + + + | Result panel 89 | + + + + + +------+ + + | | 2022-06-02 | [facility] | 32 | (missing) | (missing) | | (unavailable | 21:00:07 | [facility] | | | | + + + +------+ + + + + | Result panel 90 | + + + + + +------+ + + | | 2022-06-02 | [facility] | 20 | (missing) | (missing) | | (unavailable | 21:00:07 | [facility] | | | | + + + +------+ + + + + | Result panel 91 | + + + + + +------+ + + | | 2022-06-02 | [facility] | 83 | (missing) | (missing) | | (unavailable | 21:00:07 | [facility] | | | + + + +------+ + + + + | Result panel 92 | + + + + + +-------+ + + | | 2022-06-02 | [facility] | 9.2 | (missing) | (missing) | | (unavailable | 21:00:07 | [facility] | | | + + + +-------+ + + + + | Result panel 93 | + + + + + + + + + | | 2022-06-02 | [facility] | YELLOW | (missing) | (missing) | | (unavailable | 21:40:07 | [facility] | | | | + + + + + + + + + | Result panel 94 | + + + + + +---------+ + + | | 2022-06-02 | [facility] | CLEAR | (missing) | (missing) | | (unavailable | 21:40:07 | [facility] | | | | + + + +---------+ + + + + | Result panel 95 | + + + + + + + + + | | 2022-06-02 | [facility] | NEGATIVE | (missing) | (missing) | | (unavailable | 21:40:07 | [facility] | | | | + + + + + + + + + | Result panel 96 | + + + + + + + + + | | 2022-06-02 | [facility] | NEGATIVE | (missing) | (missing) | | (unavailable | 21:40:07 | [facility] | | | | + + + + + + + + + | Result panel 97 | + + + + + +---------+ + + | | 2022-06-02 | [facility] | SMALL | (missing) | (missing) | | (unavailable | 21:40:07 | [facility] | | | + + + +---------+ + + + + | Result panel 98 | + + + + + +---------+ + + | | 2022-06-02 | [facility] | 1.010 | (missing) | (missing) | | (unavailable | 21:40:07 | [facility] | | | | + + + +---------+ + + + + | Result panel 99 | + + + + + +---------+ + + | | 2022-06-02 | [facility] | SMALL | (missing) | (missing) | | (unavailable | 21:40:07 | [facility] | | | | + + + +---------+ + + + + | Result panel 100 | + + + + + +-------+ + + | | 2022-06-02 | [facility] | 6.0 | (missing) | (missing) | | (unavailable | 21:40:07 | [facility] | | | | + + + +-------+ + + + + | Result panel 101 | + + + + + + + + + | | 2022-06-02 | [facility] | NEGATIVE | (missing) | (missing) | | (unavailable | 21:40:07 | [facility] | | | | + + + + + + + + + | Result panel 102 | + + + + + + + + + | | 2022-06-02 | [facility] | NORMAL | (missing) | (missing) | | (unavailable | 21:40:07 | [facility] | | | | + + + + + + + + + | Result panel 103 | + + + + + + + + + | | 2022-06-02 | [facility] | NEGATIVE | (missing) | (missing) | | (unavailable | 21:40:07 | [facility] | | | | + + + + + + + + + | Result panel 104 | + + + + + + + + + | | 2022-06-02 | [facility] | NEGATIVE | (missing) | (missing) | | (unavailable | 21:40:07 | [facility] | | | | + + + + + + + + + | Result panel 105 | + + + + + +--------+ + + | | 2022-06-02 | [facility] | 7-11 | (missing) | (missing) | | (unavailable | 21:40:07 | [facility] | | | | + + + +--------+ + + + + | Result panel 106 | + + + + + +--------+ + + | | 2022-06-02 | [facility] | 7-11 | (missing) | (missing) | | (unavailable | 21:40:07 | [facility] | | | | + + + +--------+ + + + + | Result panel 107 | + + + + + + + + + | | 2022-06-02 | [facility] | SQUAMOUS 1+ | (missing) | (missing) | | (unavailable | 21:40:07 | [facility] | | | | + + + + + + + + + | Result panel 108 | + + + + + + + + + | | 2022-06-02 | [facility] | NONE SEEN | (missing) | (missing) | | (unavailable | 21:40:07 | [facility] | | | | + + + + + + + + + | Result panel 109 | + + + + + +--------+ + + | | 2022-06-02 | [facility] | RARE | (missing) | (missing) | | (unavailable | 21:40:07 | [facility] | | | | + + + +--------+ + + + + | Result panel 110 | + + + + + + + + + | | 2022-06-02 | [facility] | NONE SEEN | (missing) | (missing) | | (unavailable | 21:40:07 | [facility] | | | | + + + + + + + + + | Result panel 111 | + + + + + +------+ + + | | 2022-06-02 | [facility] | No | (missing) | (missing) | | (unavailable | 21:40:07 | [facility] | | | | + + + +------+ + + + + | Result panel 112 | + + + + + +-------+ + + | | 2022-06-02 | [facility] | 0.5 | (missing) | (missing) | | (unavailable | 22:20:07 | [facility] | | | | + + + +-------+ + + + + | Result panel 113 | + + + + + + + + + | | 2022-06-03 | [facility] | NEGATIVE | (missing) | (missing) | | (unavailable | 02:00:07 | [facility] | | | | + + + + + + + + + | Result panel 114 | + + + + + + + + + | | 2022-06-03 | [facility] | NEGATIVE | (missing) | (missing) | | (unavailable | 02:00:07 | [facility] | | | | + + + + + + + + + | Result panel 115 | + + + + + + + + + | | 2022-06-03 | [facility] | NEGATIVE | (missing) | (missing) | | (unavailable | 02:00:07 | [facility] | | | | + + + + + + + + + | Result panel 116 | + + + + + + + + + | | 2022-06-03 | [facility] | NEGATIVE | (missing) | (missing) | | (unavailable | 02:00:07 | [facility] | | | | + + + + + + + + + | Result panel 117 | + + + + + +-------+ + + | | 2022-06-04 | [facility] | 9.6 | (missing) | (missing) | | (unavailable | 05:10:07 | [facility] | | | | + + + +-------+ + + + + | Result panel 118 | + + + + + +--------+ + + | | 2022-06-04 | [facility] | 4.09 | (missing) | (missing) | | (unavailable | 05:10:07 | [facility] | | | | + + + +--------+ + + + + | Result panel 119 | + + + + + +--------+ + + | | 2022-06-04 | [facility] | 12.4 | (missing) | (missing) | | (unavailable | 05:10:07 | [facility] | | | | + + + +--------+ + + + + | Result panel 120 | + + + + + +--------+ + + | | 2022-06-04 | [facility] | 36.7 | (missing) | (missing) | | (unavailable | 05:10:07 | [facility] | | | | + + + +--------+ + + + + | Result panel 121 | + + + + + +--------+ + + | | 2022-06-04 | [facility] | 89.9 | (missing) | (missing) | | (unavailable | 05:10:07 | [facility] | | | | + + + +--------+ + + + + | Result panel 122 | + + + + + +--------+ + + | | 2022-06-04 | [facility] | 30.2 | (missing) | (missing) | | (unavailable | 05:10:07 | [facility] | | | | + + + +--------+ + + + + | Result panel 123 | + + + + + +--------+ + + | | 2022-06-04 | [facility] | 33.6 | (missing) | (missing) | | (unavailable | 05:10:07 | [facility] | | | | + + + +--------+ + + + + | Result panel 124 | + + + + + +--------+ + + | | 2022-06-04 | [facility] | 12.9 | (missing) | (missing) | | (unavailable | 05:10:07 | [facility] | | | | + + + +--------+ + + + + | Result panel 125 | + + + + + +-------+ + + | | 2022-06-04 | [facility] | 222 | (missing) | (missing) | | (unavailable | 05:10:07 | [facility] | | | + + + +-------+ + + + + | Result panel 126 | + + + + + +--------+ + + | | 2022-06-04 | [facility] | 80.1 | (missing) | (missing) | | (unavailable | 05:10:07 | [facility] | | | + + + +--------+ + + + + | Result panel 127 | + + + + + +-------+ + + | | 2022-06-04 | [facility] | 9.6 | (missing) | (missing) | | (unavailable | 05:10:07 | [facility] | | | | + + + +-------+ + + + + | Result panel 128 | + + + + + +-------+ + + | | 2022-06-04 | [facility] | 7.3 | (missing) | (missing) | | (unavailable | 05:10:07 | [facility] | | | + + + +-------+ + + + + | Result panel 129 | + + + + + +-------+ + + | | 2022-06-04 | [facility] | 2.7 | (missing) | (missing) | | (unavailable | 05:10:07 | [facility] | | | | + + + +-------+ + + + + | Result panel 130 | + + + + + +-------+ + + | | 2022-06-04 | [facility] | 0.3 | (missing) | (missing) | | (unavailable | 05:10:07 | [facility] | | | | + + + +-------+ + + + + | Result panel 131 | + + + + + +------+---------+ + | | 2022-06-04 | [facility] | 93 | mg/dL | (missing) | | (unavailable | 05:10:07 | [facility] | | | | + + + +------+---------+ + + + | Result panel 132 | + + + + + +-----+---------+ + | | 2022-06-04 | [facility] | 8 | mg/dL | (missing) | | (unavailable | 05:10:07 | [facility] | | | | + + + +-----+---------+ + + + | Result panel 133 | + + + + + +--------+---------+ + | | 2022-06-04 | [facility] | 0.90 | mg/dL | (missing) | | (unavailable | 05:10:07 | [facility] | | | | + + + +--------+---------+ + + + | Result panel 134 | + + + + + +------+ + + | | 2022-06-04 | [facility] | 63 | (missing) | (missing) | | (unavailable | 05:10:07 | [facility] | | | | + + + +------+ + + + + | Result panel 135 | + + + + + +--------+ + + | | 2022-06-04 | [facility] | 8.88 | (missing) | (missing) | | (unavailable | 05:10:07 [facility] | | | | + + + +--------+ + + + + | Result panel 136 | + + + + + +-------+ + + | | 2022-06-04 | [facility] | 133 | (missing) | (missing) | | (unavailable | 05:10:07 | [facility] | | | + + + +-------+ + + + + | Result panel 137 | + + + + + +-------+ + + | | 2022-06-04 | [facility] | 4.4 | (missing) | (missing) | | (unavailable | 05:10:07 [facility] | | | | + + + +-------+ + + + + | Result panel 138 | + + + + + +-------+ + + | | 2022-06-04 | [facility] | 101 | (missing) | (missing) | | (unavailable | 05:10:07 | [facility] | | | | + + + +-------+ + + + + | Result panel 139 | + + + + + +------+ + + | | 2022-06-04 | [facility] | 25 | (missing) | (missing) | | (unavailable | 05:10:07 | [facility] | | | | + + + +------+ + + + + | Result panel 140 | + + + + + +--------+ + + | | 2022-06-04 | [facility] | 11.4 | (missing) | (missing) | | (unavailable | 05:10:07 | [facility] | | | | + + + +--------+ + + + + | Result panel 141 | + + + + + +-------+---------+ + | | 2022-06-04 | [facility] | 8.5 | mg/dL | (missing) | | (unavailable | 05:10:07 | [facility] | | | | + + + +-------+---------+ + + + | Result panel 142 | + + + + + +-------+---------+ + | | 2022-06-04 | [facility] | 2.5 | mg/dL | (missing) | | (unavailable | 05:10:07 | [facility] | | | | + + + +-------+---------+ + + + | Result panel 143 | + + + + + + + + + | | 2022-08-20 | [facility] | YELLOW | (missing) | (missing) | | (unavailable | 19:32:07 | [facility] | | | | + + + + + + + + + | Result panel 144 | + + + + + + + + + | | 2022-08-20 | [facility] | CLOUDY | (missing) | (missing) | | (unavailable | 19:32:07 | [facility] | | | | + + + + + + + + + | Result panel 145 | + + + + + + + + + | | 2022-08-20 | [facility] | NEGATIVE | (missing) | (missing) | | (unavailable | 19:32:07 | [facility] | | | | + + + + + + + + + | Result panel 146 | + + + + + + + + + | | 2022-08-20 | [facility] | NEGATIVE | (missing) | (missing) | | (unavailable | 19:32:07 | [facility] | | | | + + + + + + + + + | Result panel 147 | + + + + + + + + + | | 2022-08-20 | [facility] | NEGATIVE | (missing) | (missing) | | (unavailable | 19:32:07 | [facility] | | | | + + + + + + + + + | Result panel 148 | + + + + + +---------+ + + | | 2022-08-20 | [facility] | 1.010 | (missing) | (missing) | | (unavailable | 19:32:07 | [facility] | | | | + + + +---------+ + + + + | Result panel 149 | + + + + + + + + + | | 2022-08-20 | [facility] | TRACE-L | (missing) | (missing) | | (unavailable | 19:32:07 | [facility] | | | | + + + + + + + + + | Result panel 150 | + + + + + +-------+ + + | | 2022-08-20 | [facility] | 7.0 | (missing) | (missing) | | (unavailable | 19:32:07 | [facility] | | | | + + + +-------+ + + + + | Result panel 151 | + + + + + + + + + | | 2022-08-20 | [facility] | NEGATIVE | (missing) | (missing) | | (unavailable | 19:32:07 | [facility] | | | | + + + + + + + + + | Result panel 152 | + + + + + + + + + | | 2022-08-20 | [facility] | NORMAL | (missing) | (missing) | | (unavailable | 19:32:07 | [facility] | | | | + + + + + + + + + | Result panel 153 | + + + + + + + + + | | 2022-08-20 | [facility] | NEGATIVE | (missing) | (missing) | | (unavailable | 19:32:07 | [facility] | | | | + + + + + + + + + | Result panel 154 | + + + + + +---------+ + + | | 2022-08-20 | [facility] | LARGE | (missing) | (missing) | | (unavailable | 19:32:07 | [facility] | | | | + + + +---------+ + + + + | Result panel 155 | + + + + + +-------+ + + | | 2022-08-20 | [facility] | 2-3 | (missing) | (missing) | | (unavailable | 19:32:07 | [facility] | | | | + + + +-------+ + + + + | Result panel 156 | + + + + + +---------+ + + | | 2022-08-20 | [facility] | 21-40 | (missing) | (missing) | | (unavailable | 19:32:07 | [facility] | | | | + + + +---------+ + + + + | Result panel 157 | + + + + + +-----+ + + | | 2022-08-20 | [facility] | 0 | (missing) | (missing) | | (unavailable | 19:32:07 [facility] | | | | + + + +-----+ + + + + | Result panel 158 | + + + + + +------+ + + | | 2022-08-20 | [facility] | 2+ | (missing) | (missing) | | (unavailable | 19:32:07 [facility] | | | | + + + +------+ + + + + | Result panel 159 | + + + + + +-------+ + + | | 2022-08-20 | [facility] | Yes | (missing) | (missing) | | (unavailable | 19:32:07 [facility] | | | | + + + +-------+ + + + + | Result panel 160 | + + + + + + + + + | | 2022-08-20 | [facility] | AEROCOCCUS | (missing) | (missing) | | (unavailable | 19:32:07 | [facility] | | | | + + + + + + + + + | Result panel 161 | + + + + + + + + + | | 2022-08-20 | [facility] | YELLOW | (missing) | (missing) | | (unavailable | 19:32:07 | [facility] | | | | + + + + + + + + + | Result panel 162 | + + + + + + + + + | | 2022-08-20 | [facility] | CLOUDY | (missing) | (missing) | | (unavailable | 19:32:07 | [facility] | | | | + + + + + + + + + | Result panel 163 | + + + + + + + + + | | 2022-08-20 | [facility] | NEGATIVE | (missing) | (missing) | | (unavailable | 19:32:07 | [facility] | | | | + + + + + + + + + | Result panel 164 | + + + + + + + + + | | 2022-08-20 | [facility] | NEGATIVE | (missing) | (missing) | | (unavailable | 19:32:07 | [facility] | | | | + + + + + + + + + | Result panel 165 | + + + + + + + + + | | 2022-08-20 | [facility] | NEGATIVE | (missing) | (missing) | | (unavailable | 19:32:07 | [facility] | | | | + + + + + + + + + | Result panel 166 | + + + + + +---------+ + + | | 2022-08-20 | [facility] | 1.010 | (missing) | (missing) | | (unavailable | 19:32:07 | [facility] | | | | + + + +---------+ + + + + | Result panel 167 | + + + + + + + + + | | 2022-08-20 | [facility] | TRACE-L | (missing) | (missing) | | (unavailable | 19:32:07 | [facility] | | | | + + + + + + + + + | Result panel 168 | + + + + + +-------+ + + | | 2022-08-20 | [facility] | 7.0 | (missing) | (missing) | | (unavailable | 19:32:07 | [facility] | | | | + + + +-------+ + + + + | Result panel 169 | + + + + + + + + + | | 2022-08-20 | [facility] | NEGATIVE | (missing) | (missing) | | (unavailable | 19:32:07 | [facility] | | | | + + + + + + + + + | Result panel 170 | + + + + + + + + + | | 2022-08-20 | [facility] | NORMAL | (missing) | (missing) | | (unavailable | 19:32:07 | [facility] | | | | + + + + + + + + + | Result panel 171 | + + + + + + + + + | | 2022-08-20 | [facility] | NEGATIVE | (missing) | (missing) | | (unavailable | 19:32:07 | [facility] | | | | + + + + + + + + + | Result panel 172 | + + + + + +---------+ + + | | 2022-08-20 | [facility] | LARGE | (missing) | (missing) | | (unavailable | 19:32:07 | [facility] | | | | + + + +---------+ + + + + | Result panel 173 | + + + + + +-------+ + + | | 2022-08-20 | [facility] | 2-3 | (missing) | (missing) | | (unavailable | 19:32:07 | [facility] | | | | + + + +-------+ + + + + | Result panel 174 | + + + + + +---------+ + + | | 2022-08-20 | [facility] | 21-40 | (missing) | (missing) | | (unavailable | 19:32:07 | [facility] | | | | + + + +---------+ + + + + | Result panel 175 | + + + + + +-----+ + + | | 2022-08-20 | [facility] | 0 | (missing) | (missing) | | (unavailable | 19:32:07 | [facility] | | | | + + + +-----+ + + + + | Result panel 176 | + + + + + +------+ + + | | 2022-08-20 | [facility] | 2+ | (missing) | (missing) | | (unavailable | 19:32:07 | [facility] | | | | + + + +------+ + + + + | Result panel 177 | + + + + + +-------+ + + | | 2022-08-20 | [facility] | Yes | (missing) | (missing) | | (unavailable | 19:32:07 | [facility] | | | | + + + +-------+ + + + + | Result panel 178 | + + + + + + + + + | | 2022-08-20 | [facility] | YELLOW | (missing) | (missing) | | (unavailable | 19:32:07 | [facility] | | | | + + + + + + + + + | Result panel 179 | + + + + + + + + + | | 2022-08-20 | [facility] | CLOUDY | (missing) | (missing) | | (unavailable | 19:32:07 | [facility] | | | | + + + + + + + + + | Result panel 180 | + + + + + + + + + | | 2022-08-20 | [facility] | NEGATIVE | (missing) | (missing) | | (unavailable | 19:32:07 | [facility] | | | | + + + + + + + + + | Result panel 181 | + + + + + + + + + | | 2022-08-20 | [facility] | NEGATIVE | (missing) | (missing) | | (unavailable | 19:32:07 | [facility] | | | | + + + + + + + + + | Result panel 182 | + + + + + + + + + | | 2022-08-20 | [facility] | NEGATIVE | (missing) | (missing) | | (unavailable | 19:32:07 | [facility] | | | | + + + + + + + + + | Result panel 183 | + + + + + +---------+ + + | | 2022-08-20 | [facility] | 1.010 | (missing) | (missing) | | (unavailable | 19:32:07 | [facility] | | | | + + + +---------+ + + + + | Result panel 184 | + + + + + + + + + | | 2022-08-20 | [facility] | TRACE-L | (missing) | (missing) | | (unavailable | 19:32:07 | [facility] | | | | + + + + + + + + + | Result panel 185 | + + + + + +-------+ + + | | 2022-08-20 | [facility] | 7.0 | (missing) | (missing) | | (unavailable | 19:32:07 | [facility] | | | | + + + +-------+ + + + + | Result panel 186 | + + + + + + + + + | | 2022-08-20 | [facility] | NEGATIVE | (missing) | (missing) | | (unavailable | 19:32:07 | [facility] | | | | + + + + + + + + + | Result panel 187 | + + + + + + + + + | | 2022-08-20 | [facility] | NORMAL | (missing) | (missing) | | (unavailable | 19:32:07 | [facility] | | | | + + + + + + + + + | Result panel 188 | + + + + + + + + + | | 2022-08-20 | [facility] | NEGATIVE | (missing) | (missing) | | (unavailable | 19:32:07 | [facility] | | | | + + + + + + + + + | Result panel 189 | + + + + + +---------+ + + | | 2022-08-20 | [facility] | LARGE | (missing) | (missing) | | (unavailable | 19:32:07 [facility] | | | | + + + +---------+ + + + + | Result panel 190 | + + + + + +-------+ + + | | 2022-08-20 | [facility] | 2-3 | (missing) | (missing) | | (unavailable | 19:32:07 [facility] | | | | + + + +-------+ + + + + | Result panel 191 | + + + + + +---------+ + + | | 2022-08-20 | [facility] | 21-40 | (missing) | (missing) | | (unavailable | 19:32:07 [facility] | | | | + + + +---------+ + + + + | Result panel 192 | + + + + + +-----+ + + | | 2022-08-20 | [facility] | 0 | (missing) | (missing) | | (unavailable | 19:32:07 [facility] | | | | + + + +-----+ + + + + | Result panel 193 | + + + + + +------+ + + | | 2022-08-20 | [facility] | 2+ | (missing) | (missing) | | (unavailable | 19:32:07 [facility] | | | | + + + +------+ + + + + | Result panel 194 | + + + + + +-------+ + + | | 2022-08-20 | [facility] | Yes | (missing) | (missing) | | (unavailable | 19:32:07 [facility] | | | | + + + +-------+ + + + + | Result panel 195 | + + + + + +------+ + + | | 2022-08-21 | [facility] | 82 | (missing) | (missing) | | (unavailable | 08:02:07 | [facility] | | | | + + + +------+ + + + + | Result panel 196 | + + + + + +-----+ + + | | 2022-08-21 | [facility] | 1 | (missing) | (missing) | | (unavailable | 08:02:07 | [facility] | | | | + + + +-----+ + + + + | Result panel 197 | + + + + + +-----+ + + | | 2022-08-21 | [facility] | 4 | (missing) | (missing) | | (unavailable | 08:02:07 | [facility] | | | | + + + +-----+ + + + + | Result panel 198 | + + + + + +-----+ + + | | 2022-08-21 | [facility] | 0 | (missing) | (missing) | | (unavailable | 08:02:07 | [facility] | | | | + + + +-----+ + + + + | Result panel 199 | + + + + + +-----+ + + | | 2022-08-21 | [facility] | 0 | (missing) | (missing) | | (unavailable | 08:02:07 | [facility] | | | | + + + +-----+ + + + + | Result panel 200 | + + + + + +------+ + + | | 2022-08-21 | [facility] | 13 | (missing) | (missing) | | (unavailable | 08:02:07 | [facility] | | | | + + + +------+ + + + + | Result panel 201 | + + + + + +-------+ + + | | 2022-08-21 | [facility] | 7.3 | (missing) | (missing) | | (unavailable | 08:02:07 | [facility] | | | | + + + +-------+ + + + + | Result panel 202 | + + + + + +-------+ + + | | 2022-08-21 | [facility] | 3.7 | (missing) | (missing) | | (unavailable | 08:02:07 | [facility] | | | | + + + +-------+ + + + + | Result panel 203 | + + + + + +-------+ + + | | 2022-08-21 | [facility] | 3.6 | (missing) | (missing) | | (unavailable | 08:02:07 | [facility] | | | | + + + +-------+ + + + + | Result panel 204 | + + + + + +--------+ + + | | 2022-08-21 | [facility] | 1.03 | (missing) | (missing) | | (unavailable | 08:02:07 | [facility] | | | | + + + +--------+ + + + + | Result panel 205 | + + + + + +-------+ + + | | 2022-08-21 | [facility] | 0.9 | (missing) | (missing) | | (unavailable | 08:02:07 | [facility] | | | | + + + +-------+ + + + + | Result panel 206 | + + + + + +------+ + + | | 2022-08-21 | [facility] | 15 | (missing) | (missing) | | (unavailable | 08:02:07 | [facility] | | | | + + + +------+ + + + + | Result panel 207 | + + + + + +------+ + + | | 2022-08-21 | [facility] | 13 | (missing) | (missing) | | (unavailable | 08:02:07 | [facility] | | | | + + + +------+ + + + + | Result panel 208 | + + + + + +------+ + + | | 2022-08-21 | [facility] | 68 | (missing) | (missing) | | (unavailable | 08:02:07 | [facility] | | | | + + + +------+ + + + + | Result panel 209 | + + + + + +------+ + + | | 2022-08-21 | [facility] | 82 | (missing) | (missing) | | (unavailable | 08:02:07 | [facility] | | | | + + + +------+ + + + + | Result panel 210 | + + + + + +-----+ + + | | 2022-08-21 | [facility] | 1 | (missing) | (missing) | | (unavailable | 08:02:07 | [facility] | | | | + + + +-----+ + + + + | Result panel 211 | + + + + + +-----+ + + | | 2022-08-21 | [facility] | 4 | (missing) | (missing) | | (unavailable | 08:02:07 | [facility] | | | | + + + +-----+ + + + + | Result panel 212 | + + + + + +-----+ + + | | 2022-08-21 | [facility] | 0 | (missing) | (missing) | | (unavailable | 08:02:07 [facility] | | | | + + + +-----+ + + + + | Result panel 213 | + + + + + +-----+ + + | | 2022-08-21 | [facility] | 0 | (missing) | (missing) | | (unavailable | 08:02:07 [facility] | | | | + + + +-----+ + + + + | Result panel 214 | + + + + + +------+ + + | | 2022-08-21 | [facility] | 13 | (missing) | (missing) | | (unavailable | 08:02:07 [facility] | | | | + + + +------+ + + + + | Result panel 215 | + + + + + +-------+ + + | | 2022-08-21 | [facility] | 7.3 | (missing) | (missing) | | (unavailable | 08:02:07 [facility] | | | + + + +-------+ + + + + | Result panel 216 | + + + + + +-------+ + + | | 2022-08-21 | [facility] | 3.7 | (missing) | (missing) | | (unavailable | 08:02:07 [facility] | | | + + + +-------+ + + + + | Result panel 217 | + + + + + +-------+ + + | | 2022-08-21 | [facility] | 3.6 | (missing) | (missing) | | (unavailable | 08:02:07 [facility] | | | + + + +-------+ + + + + | Result panel 218 | + + + + + +--------+ + + | | 2022-08-21 | [facility] | 1.03 | (missing) | (missing) | | (unavailable | 08:02:07 [facility] | | | + + + +--------+ + + + + | Result panel 219 | + + + + + +-------+ + + | | 2022-08-21 | [facility] | 0.9 | (missing) | (missing) | | (unavailable | 08:02:07 [facility] | | | + + + +-------+ + + + + | Result panel 220 | + + + + + +------+ + + | | 2022-08-21 | [facility] | 15 | (missing) | (missing) | | (unavailable | 08:02:07 [facility] | | | + + + +------+ + + + + | Result panel 221 | + + + + + +------+ + + | | 2022-08-21 | [facility] | 13 | (missing) | (missing) | | (unavailable | 08:02:07 [facility] | | | + + + +------+ + + + + | Result panel 222 | + + + + + +------+ + + | | 2022-08-21 | [facility] | 68 | (missing) | (missing) | | (unavailable | 08:02:07 [facility] | | | + + + +------+ + + + + | Result panel 223 | + + + + + +------+ + + | | 2022-08-21 | [facility] | 82 | (missing) | (missing) | | (unavailable | 08:02:07 [facility] | | | + + + +------+ + + + + | Result panel 224 | + + + + + +-----+ + + | | 2022-08-21 | [facility] | 1 | (missing) | (missing) | | (unavailable | 08:02:07 [facility] | | | + + + +-----+ + + + + | Result panel 225 | + + + + + +-----+ + + | | 2022-08-21 | [facility] | 4 | (missing) | (missing) | | (unavailable | 08:02:07 [facility] | | | + + + +-----+ + + + + | Result panel 226 | + + + + + +-----+ + + | | 2022-08-21 | [facility] | 0 | (missing) | (missing) | | (unavailable | 08:02:07 [facility] | | | + + + +-----+ + + + + | Result panel 227 | + + + + + +-----+ + + | | 2022-08-21 | [facility] | 0 | (missing) | (missing) | | (unavailable | 08:02:07 [facility] | | | + + + +-----+ + + + + | Result panel 228 | + + + + + +------+ + + | | 2022-08-21 | [facility] | 13 | (missing) | (missing) | | (unavailable | 08:02:07 [facility] | | | + + + +------+ + + + + | Result panel 229 | + + + + + +-------+ + + | | 2022-08-21 | [facility] | 7.3 | (missing) | (missing) | | (unavailable | 08:02:07 [facility] | | | + + + +-------+ + + + + | Result panel 230 | + + + + + +-------+ + + | | 2022-08-21 | [facility] | 3.7 | (missing) | (missing) | | (unavailable | 08:02:07 [facility] | | | + + + +-------+ + + + + | Result panel 231 | + + + + + +-------+ + + | | 2022-08-21 | [facility] | 3.6 | (missing) | (missing) | | (unavailable | 08:02:07 [facility] | | | + + + +-------+ + + + + | Result panel 232 | + + + + + +--------+ + + | | 2022-08-21 | [facility] | 1.03 | (missing) | (missing) | | (unavailable | 08::07 | [facility] | | | | + + + +--------+ + + + + | Result panel 233 | + + + + + +-------+ + + | | 2022-08-21 | [facility] | 0.9 | (missing) | (missing) | | (unavailable | 08:02:07 [facility] | | | + + + +-------+ + + + + | Result panel 234 | + + + + + +------+ + + | | 2022-08-21 | [facility] | 15 | (missing) | (missing) | | (unavailable | 08:02:07 [facility] | | | + + + +------+ + + + + | Result panel 235 | + + + + + +------+ + + | | 2022-08-21 | [facility] | 13 | (missing) | (missing) | | (unavailable | 08::07 | [facility] | | | + + + +------+ + + + + | Result panel 236 | + + + + + +------+ + + | | 2022-08-21 | [facility] | 68 | (missing) | (missing) | | (unavailable | 08:02:07 [facility] | | | + + + +------+ + + + + | Result panel 237 | + + + + + +-------+ + + | | 2022-08-21 | [facility] | 0.8 | (missing) | (missing) | | (unavailable | 09:10:07 [facility] | | | + + + +-------+ + + + + | Result panel 238 | + + + + + +-------+ + + | | 2022-08-21 | [facility] | 0.8 | (missing) | (missing) | | (unavailable | 09:10:07 [facility] | | | + + + +-------+ + + + + | Result panel 239 | + + + + + +-------+ + + | | 2022-08-21 | [facility] | 0.8 | (missing) | (missing) | | (unavailable | 09:10:07 [facility] | | | + + + +-------+ + + + + | Result panel 240 | + + + + + +-------+---------+ + | | 2022-08-22 | [facility] | 3.1 | mg/dL | (missing) | | (unavailable | 05:47:07 [facility] | | | + + + +-------+---------+ + + + | Result panel 241 | + + + + + +-------+---------+ + | | 2022-08-22 | [facility] | 3.1 | mg/dL | (missing) | | (unavailable | 05:47:07 [facility] | | | + + + +-------+---------+ + + + | Result panel 242 | + + + + + +-------+---------+ + | | 2022-08-22 | [facility] | 3.1 | mg/dL | (missing) | | (unavailable | 05:47:07 [facility] | | | + + + +-------+---------+ + + + | Result panel 243 | + + + + + +--------+ + + | | 2022-08-23 | [facility] | 26.5 | (missing) | (missing) | | (unavailable | 05:40:07 [facility] | | | + + + +--------+ + + + + | Result panel 244 | + + + + + +--------+ + + | | 2022-08-23 | [facility] | 10.7 | (missing) | (missing) | | (unavailable | 05:40:07 [facility] | | | + + + +--------+ + + + + | Result panel 245 | + + + + + +-------+ + + | | 2022-08-23 | [facility] | 3.4 | (missing) | (missing) | | (unavailable | 05:40:07 [facility] | | | + + + +-------+ + + + + | Result panel 246 | + + + + + +-------+ + + | | 2022-08-23 | [facility] | 0.8 | (missing) | (missing) | | (unavailable | 05:40:07 [facility] | | | + + + +-------+ + + + + | Result panel 247 | + + + + + +-------+---------+ + | | 2022-08-23 | [facility] | 102 | mg/dL | (missing) | | (unavailable | 05:40:07 [facility] | | | + + + +-------+---------+ + + + | Result panel 248 | + + + + + +-----+---------+ + | | 2022-08-23 | [facility] | 5 | mg/dL | (missing) | | (unavailable | 05:40:07 [facility] | | | + + + +-----+---------+ + + + | Result panel 249 | + + + + + +--------+---------+ + | | 2022-08-23 | [facility] | 0.87 | mg/dL | (missing) | | (unavailable | 05:40:07 [facility] | | | + + + +--------+---------+ + + + | Result panel 250 | + + + + + +------+ + + | | 2022-08-23 | [facility] | 66 | (missing) | (missing) | | (unavailable | 05:40:07 [facility] | | | + + + +------+ + + + + | Result panel 251 | + + + + + +--------+ + + | | 2022-08-23 | [facility] | 5.74 | (missing) | (missing) | | (unavailable | 05:40:07 [facility] | | | + + + +--------+ + + + + | Result panel 252 | + + + + + +-------+ + + | | 2022-08-23 | [facility] | 139 | (missing) | (missing) | | (unavailable | 05:40:07 [facility] | | | + + + +-------+ + + + + | Result panel 253 | + + + + + +-------+ + + | | 2022-08-23 | [facility] | 3.2 | (missing) | (missing) | | (unavailable | 05:40:07 [facility] | | | + + + +-------+ + + + + | Result panel 254 | + + + + + +-------+ + + | | 2022-08-23 | [facility] | 106 | (missing) | (missing) | | (unavailable | 05:40:07 [facility] | | | + + + +-------+ + + + + | Result panel 255 | + + + + + +------+ + + | | 2022-08-23 | [facility] | 25 | (missing) | (missing) | | (unavailable | 05:40:07 [facility] | | | + + + +------+ + + + + | Result panel 256 | + + + + + +--------+ + + | | 2022-08-23 | [facility] | 11.2 | (missing) | (missing) | | (unavailable | 05:40:07 [facility] | | | + + + +--------+ + + + + | Result panel 257 | + + + + + +-------+---------+ + | | 2022-08-23 | [facility] | 8.3 | mg/dL | (missing) | | (unavailable | 05:40:07 [facility] | | | + + + +-------+---------+ + + + | Result panel 258 | + + + + + +-------+---------+ + | | 2022-08-23 | [facility] | 1.6 | mg/dL | (missing) | | (unavailable | 05:40:07 [facility] | | | + + + +-------+---------+ + + + | Result panel 259 | + + + + + +-------+ + + | | 2022-08-23 | [facility] | 5.8 | (missing) | (missing) | | (unavailable | 05:40:07 [facility] | | | + + + +-------+ + + + + | Result panel 260 | + + + + + +--------+ + + | | 2022-08-23 | [facility] | 3.80 | (missing) | (missing) | | (unavailable | 05:40:07 [facility] | | | + + + +--------+ + + + + | Result panel 261 | + + + + + +--------+ + + | | 2022-08-23 | [facility] | 11.5 | (missing) | (missing) | | (unavailable | 05:40:07 [facility] | | | + + + +--------+ + + + + | Result panel 262 | + + + + + +--------+ + + | | 2022-08-23 | [facility] | 34.2 | (missing) | (missing) | | (unavailable | 05:40:07 [facility] | | | + + + +--------+ + + + + | Result panel 263 | + + + + + +--------+ + + | | 2022-08-23 | [facility] | 90.1 | (missing) | (missing) | | (unavailable | 05:40:07 [facility] | | | + + + +--------+ + + + + | Result panel 264 | + + + + + +--------+ + + | | 2022-08-23 | [facility] | 30.3 | (missing) | (missing) | | (unavailable | 05:40:07 [facility] | | | + + + +--------+ + + + + | Result panel 265 | + + + + + +--------+ + + | | 2022-08-23 | [facility] | 33.7 | (missing) | (missing) | | (unavailable | 05:40:07 [facility] | | | + + + +--------+ + + + + | Result panel 266 | + + + + + +--------+ + + | | 2022-08-23 | [facility] | 13.8 | (missing) | (missing) | | (unavailable | 05:40:07 [facility] | | | + + + +--------+ + + + + | Result panel 267 | + + + + + +-------+ + + | | 2022-08-23 | [facility] | 215 | (missing) | (missing) | | (unavailable | 05:40:07 [facility] | | | + + + +-------+ + + + + | Result panel 268 | + + + + + +--------+ + + | | 2022-08-23 | [facility] | 58.6 | (missing) | (missing) | | (unavailable | 05:40:07 [facility] | | | + + + +--------+ + + + + | Result panel 269 | + + + + + +--------+ + + | | 2022-08-23 | [facility] | 26.5 | (missing) | (missing) | | (unavailable | 05:40:07 [facility] | | | + + + +--------+ + + + + | Result panel 270 | + + + + + +--------+ + + | | 2022-08-23 | [facility] | 10.7 | (missing) | (missing) | | (unavailable | 05:40:07 [facility] | | | + + + +--------+ + + + + | Result panel 271 | + + + + + +-------+ + + | | 2022-08-23 | [facility] | 3.4 | (missing) | (missing) | | (unavailable | 05:40:07 [facility] | | | + + + +-------+ + + + + | Result panel 272 | + + + + + +-------+ + + | | 2022-08-23 | [facility] | 0.8 | (missing) | (missing) | | (unavailable | 05:40:07 [facility] | | | + + + +-------+ + + + + | Result panel 273 | + + + + + +-------+---------+ + | | 2022-08-23 | [facility] | 102 | mg/dL | (missing) | | (unavailable | 05:40:07 [facility] | | | + + + +-------+---------+ + + + | Result panel 274 | + + + + + +-----+---------+ + | | 2022-08-23 | [facility] | 5 | mg/dL | (missing) | | (unavailable | 05:40:07 [facility] | | | + + + +-----+---------+ + + + | Result panel 275 | + + + + + +--------+---------+ + | | 2022-08-23 | [facility] | 0.87 | mg/dL | (missing) | | (unavailable | 05:40:07 [facility] | | | | + + + +--------+---------+ + + + | Result panel 276 | + + + + + +------+ + + | | 2022-08-23 | [facility] | 66 | (missing) | (missing) | | (unavailable | 05:40:07 [facility] | | | + + + +------+ + + + + | Result panel 277 | + + + + + +--------+ + + | | 2022-08-23 | [facility] | 5.74 | (missing) | (missing) | | (unavailable | 05:40:07 [facility] | | | + + + +--------+ + + + + | Result panel 278 | + + + + + +-------+ + + | | 2022-08-23 | [facility] | 139 | (missing) | (missing) | | (unavailable | 05:40:07 [facility] | | | + + + +-------+ + + + + | Result panel 279 | + + + + + +-------+ + + | | 2022-08-23 | [facility] | 3.2 | (missing) | (missing) | | (unavailable | 05:40:07 [facility] | | | | + + + +-------+ + + + + | Result panel 280 | + + + + + +-------+ + + | | 2022-08-23 | [facility] | 106 | (missing) | (missing) | | (unavailable | 05:40:07 [facility] | | | + + + +-------+ + + + + | Result panel 281 | + + + + + +------+ + + | | 2022-08-23 | [facility] | 25 | (missing) | (missing) | | (unavailable | 05:40:07 [facility] | | | + + + +------+ + + + + | Result panel 282 | + + + + + +--------+ + + | | 2022-08-23 | [facility] | 11.2 | (missing) | (missing) | | (unavailable | 05:40:07 [facility] | | | + + + +--------+ + + + + | Result panel 283 | + + + + + +-------+---------+ + | | 2022-08-23 | [facility] | 8.3 | mg/dL | (missing) | | (unavailable | 05:40:07 [facility] | | | + + + +-------+---------+ + + + | Result panel 284 | + + + + + +-------+---------+ + | | 2022-08-23 | [facility] | 1.6 | mg/dL | (missing) | | (unavailable | 05:40:07 [facility] | | | + + + +-------+---------+ + + + | Result panel 285 | + + + + + +-------+ + + | | 2022-08-23 | [facility] | 5.8 | (missing) | (missing) | | (unavailable | 05:40:07 [facility] | | | + + + +-------+ + + + + | Result panel 286 | + + + + + +--------+ + + | | 2022-08-23 | [facility] | 3.80 | (missing) | (missing) | | (unavailable | 05:40:07 [facility] | | | + + + +--------+ + + + + | Result panel 287 | + + + + + +--------+ + + | | 2022-08-23 | [facility] | 11.5 | (missing) | (missing) | | (unavailable | 05:40:07 [facility] | | | + + + +--------+ + + + + | Result panel 288 | + + + + + +--------+ + + | | 2022-08-23 | [facility] | 34.2 | (missing) | (missing) | | (unavailable | 05:40:07 [facility] | | | + + + +--------+ + + + + | Result panel 289 | + + + + + +--------+ + + | | 2022-08-23 | [facility] | 90.1 | (missing) | (missing) | | (unavailable | 05:40:07 [facility] | | | + + + +--------+ + + + + | Result panel 290 | + + + + + +--------+ + + | | 2022-08-23 | [facility] | 30.3 | (missing) | (missing) | | (unavailable | 05:40:07 [facility] | | | + + + +--------+ + + + + | Result panel 291 | + + + + + +--------+ + + | | 2022-08-23 | [facility] | 33.7 | (missing) | (missing) | | (unavailable | 05:40:07 [facility] | | | | + + + +--------+ + + + + | Result panel 292 | + + + + + +--------+ + + | | 2022-08-23 | [facility] | 13.8 | (missing) | (missing) | | (unavailable | 05:40:07 [facility] | | | + + + +--------+ + + + + | Result panel 293 | + + + + + +-------+ + + | | 2022-08-23 | [facility] | 215 | (missing) | (missing) | | (unavailable | 05:40:07 [facility] | | | + + + +-------+ + + + + | Result panel 294 | + + + + + +--------+ + + | | 2022-08-23 | [facility] | 58.6 | (missing) | (missing) | | (unavailable | 05:40:07 [facility] | | | + + + +--------+ + + + + | Result panel 295 | + + + + + +--------+ + + | | 2022-08-23 | [facility] | 26.5 | (missing) | (missing) | | (unavailable | 05:40:07 [facility] | | | | + + + +--------+ + + + + | Result panel 296 | + + + + + +--------+ + + | | 2022-08-23 | [facility] | 10.7 | (missing) | (missing) | | (unavailable | 05:40:07 [facility] | | | | + + + +--------+ + + + + | Result panel 297 | + + + + + +-------+ + + | | 2022-08-23 | [facility] | 3.4 | (missing) | (missing) | | (unavailable | 05:40:07 [facility] | | | | + + + +-------+ + + + + | Result panel 298 | + + + + + +-------+ + + | | 2022-08-23 | [facility] | 0.8 | (missing) | (missing) | | (unavailable | 05:40:07 [facility] | | | | + + + +-------+ + + + + | Result panel 299 | + + + + + +-------+---------+ + | | 2022-08-23 | [facility] | 102 | mg/dL | (missing) | | (unavailable | 05:40:07 [facility] | | | | + + + +-------+---------+ + + + | Result panel 300 | + + + + + +-----+---------+ + | | 2022-08-23 | [facility] | 5 | mg/dL | (missing) | | (unavailable | 05:40:07 [facility] | | | | + + + +-----+---------+ + + + | Result panel 301 | + + + + + +--------+---------+ + | | 2022-08-23 | [facility] | 0.87 | mg/dL | (missing) | | (unavailable | 05:40:07 [facility] | | | | + + + +--------+---------+ + + + | Result panel 302 | + + + + + +------+ + + | | 2022-08-23 | [facility] | 66 | (missing) | (missing) | | (unavailable | 05:40:07 [facility] | | | | + + + +------+ + + + + | Result panel 303 | + + + + + +--------+ + + | | 2022-08-23 | [facility] | 5.74 | (missing) | (missing) | | (unavailable | 05:40:07 [facility] | | | | + + + +--------+ + + + + | Result panel 304 | + + + + + +-------+ + + | | 2022-08-23 | [facility] | 139 | (missing) | (missing) | | (unavailable | 05:40:07 [facility] | | | | + + + +-------+ + + + + | Result panel 305 | + + + + + +-------+ + + | | 2022-08-23 | [facility] | 3.2 | (missing) | (missing) | | (unavailable | 05:40:07 [facility] | | | | + + + +-------+ + + + + | Result panel 306 | + + + + + +-------+ + + | | 2022-08-23 | [facility] | 106 | (missing) | (missing) | | (unavailable | 05:40:07 [facility] | | | | + + + +-------+ + + + + | Result panel 307 | + + + + + +------+ + + | | 2022-08-23 | [facility] | 25 | (missing) | (missing) | | (unavailable | 05:40:07 [facility] | | | | + + + +------+ + + + + | Result panel 308 | + + + + + +--------+ + + | | 2022-08-23 | [facility] | 11.2 | (missing) | (missing) | | (unavailable | 05:40:07 [facility] | | | | + + + +--------+ + + + + | Result panel 309 | + + + + + +-------+---------+ + | | 2022-08-23 | [facility] | 8.3 | mg/dL | (missing) | | (unavailable | 05:40:07 [facility] | | | + + + +-------+---------+ + + + | Result panel 310 | + + + + + +-------+---------+ + | | 2022-08-23 | [facility] | 1.6 | mg/dL | (missing) | | (unavailable | 05:40:07 [facility] | | | | + + + +-------+---------+ + + + | Result panel 311 | + + + + + +-------+ + + | | 2022-08-23 | [facility] | 5.8 | (missing) | (missing) | | (unavailable | 05:40:07 [facility] | | | | + + + +-------+ + + + + | Result panel 312 | + + + + + +--------+ + + | | 2022-08-23 | [facility] | 3.80 | (missing) | (missing) | | (unavailable | 05:40:07 [facility] | | | | + + + +--------+ + + + + | Result panel 313 | + + + + + +--------+ + + | | 2022-08-23 | [facility] | 11.5 | (missing) | (missing) | | (unavailable | 05:40:07 [facility] | | | | + + + +--------+ + + + + | Result panel 314 | + + + + + +--------+ + + | | 2022-08-23 | [facility] | 34.2 | (missing) | (missing) | | (unavailable | 05:40:07 [facility] | | | | + + + +--------+ + + + + | Result panel 315 | + + + + + +--------+ + + | | 2022-08-23 | [facility] | 90.1 | (missing) | (missing) | | (unavailable | 05:40:07 [facility] | | | | + + + +--------+ + + + + | Result panel 316 | + + + + + +--------+ + + | | 2022-08-23 | [facility] | 30.3 | (missing) | (missing) | | (unavailable | 05:40:07 [facility] | | | | + + + +--------+ + + + + | Result panel 317 | + + + + + +--------+ + + | | 2022-08-23 | [facility] | 33.7 | (missing) | (missing) | | (unavailable | 05:40:07 [facility] | | | | + + + +--------+ + + + + | Result panel 318 | + + + + + +--------+ + + | | 2022-08-23 | [facility] | 13.8 | (missing) | (missing) | | (unavailable | 05:40:07 | [facility] | | | | + + + +--------+ + + + + | Result panel 319 | + + + + + +-------+ + + | | 2022-08-23 | [facility] | 215 | (missing) | (missing) | | (unavailable | 05:40:07 | [facility] | | | | + + + +-------+ + + + + | Result panel 320 | + + + + + +--------+ + + | | 2022-08-23 | [facility] | 58.6 | (missing) | (missing) | | (unavailable | 05:40:07 | [facility] | | | | + + + +--------+ + + + + | Result panel 321 | + + + + + + + + + | | 2022-08-24 | [facility] | YELLOW | (missing) | (missing) | | (unavailable | 20:07:07 | [facility] | | | | + + + + + + + + + | Result panel 322 | + + + + + +---------+ + + | | 2022-08-24 | [facility] | CLEAR | (missing) | (missing) | | (unavailable | 20::07 | [facility] | | | | + + + +---------+ + + + + | Result panel 323 | + + + + + + + + + | | 2022-08-24 | [facility] | NEGATIVE | (missing) | (missing) | | (unavailable | 20:07:07 | [facility] | | | | + + + + + + + + + | Result panel 324 | + + + + + + + + + | | 2022-08-24 | [facility] | NEGATIVE | (missing) | (missing) | | (unavailable | 20::07 | [facility] | | | | + + + + + + + + + | Result panel 325 | + + + + + +---------+ + + | | 2022-08-24 | [facility] | TRACE | (missing) | (missing) | | (unavailable | 20::07 | [facility] | | | | + + + +---------+ + + + + | Result panel 326 | + + + + + +---------+ + + | | 2022-08-24 | [facility] | 1.010 | (missing) | (missing) | | (unavailable | 20::07 | [facility] | | | | + + + +---------+ + + + + | Result panel 327 | + + + + + + + + + | | 2022-08-24 | [facility] | TRACE-I | (missing) | (missing) | | (unavailable | 20::07 | [facility] | | | | + + + + + + + + + | Result panel 328 | + + + + + +-------+ + + | | 2022-08-24 | [facility] | 5.0 | (missing) | (missing) | | (unavailable | 20::07 | [facility] | | | | + + + +-------+ + + + + | Result panel 329 | + + + + + + + + + | | 2022-08-24 | [facility] | NEGATIVE | (missing) | (missing) | | (unavailable | 20::07 | [facility] | | | | + + + + + + + + + | Result panel 330 | + + + + + + + + + | | 2022-08-24 | [facility] | NORMAL | (missing) | (missing) | | (unavailable | 20:07:07 | [facility] | | | | + + + + + + + + + | Result panel 331 | + + + + + + + + + | | 2022-08-24 | [facility] | NEGATIVE | (missing) | (missing) | | (unavailable | 20:07:07 | [facility] | | | | + + + + + + + + + | Result panel 332 | + + + + + +---------+ + + | | 2022-08-24 | [facility] | SMALL | (missing) | (missing) | | (unavailable | 20:07:07 | [facility] | | | | + + + +---------+ + + + + | Result panel 333 | + + + + + +-------+ + + | | 2022-08-24 | [facility] | 4-6 | (missing) | (missing) | | (unavailable | 20:07:07 | [facility] | | | | + + + +-------+ + + + + | Result panel 334 | + + + + + +---------+ + + | | 2022-08-24 | [facility] | 12-20 | (missing) | (missing) | | (unavailable | 20:07:07 | [facility] | | | | + + + +---------+ + + + + | Result panel 335 | + + + + + + + + + | | 2022-08-24 | [facility] | SQUAMOUS 1+ | (missing) | (missing) | | (unavailable | 20:07:07 | [facility] | | | | + + + + + + + + + | Result panel 336 | + + + + + + + + + | | 2022-08-24 | [facility] | CALCIUM | (missing) | (missing) | | (unavailable | 20:07:07 | [facility] OXALATE [facility]+ [facility] | | | [facility] | [facility] | | | | + + + + + + + + + | Result panel 337 | + + + + + +--------+ + + | | 2022-08-24 | [facility] | RARE | (missing) | (missing) | | (unavailable | 20:07:07 [facility] | | | | + + + +--------+ + + + + | Result panel 338 | + + + + + + + + + | | 2022-08-24 | [facility] | NONE SEEN | (missing) | (missing) | | (unavailable | 20:07:07 [facility] | | | | + + + + + + + + + | Result panel 339 | + + + + + +------+ + + | | 2022-08-24 | [facility] | No | (missing) | (missing) | | (unavailable | 20:07:07 [facility] | | | | + + + +------+ + + + + | Result panel 340 | + + + + + +-------+ + + | | 2022-09-26 | [facility] | 7.6 | (missing) | (missing) | | (unavailable | 20:40:07 [facility] | | | | + + + +-------+ + + + + | Result panel 341 | + + + + + +--------+ + + | | 2022-09-26 | [facility] | 66.2 | (missing) | (missing) | | (unavailable | 20:40:07 [facility] | | | | + + + +--------+ + + + + | Result panel 342 | + + + + + +--------+ + + | | 2022-09-26 | [facility] | 20.4 | (missing) | (missing) | | (unavailable | 20:40:07 [facility] | | | | + + + +--------+ + + + + | Result panel 343 | + + + + + +--------+ + + | | 2022-09-26 | [facility] | 12.0 | (missing) | (missing) | | (unavailable | 20:40:07 [facility] | | | | + + + +--------+ + + + + | Result panel 344 | + + + + + +-------+ + + | | 2022-09-26 | [facility] | 0.5 | (missing) | (missing) | | (unavailable | 20:40:07 [facility] | | | | + + + +-------+ + + + + | Result panel 345 | + + + + + +-------+ + + | | 2022-09-26 | [facility] | 0.9 | (missing) | (missing) | | (unavailable | 20:40:07 [facility] | | | | + + + +-------+ + + + + | Result panel 346 | + + + + + + + + + | | 2022-09-26 | [facility] | YELLOW | (missing) | (missing) | | (unavailable | 20:40:07 [facility] | | | | + + + + + + + + + | Result panel 347 | + + + + + +---------+ + + | | 2022-09-26 | [facility] | CLEAR | (missing) | (missing) | | (unavailable | 20:40:07 | [facility] | | | | + + + +---------+ + + + + | Result panel 348 | + + + + + + + + + | | 2022-09-26 | [facility] | NEGATIVE | (missing) | (missing) | | (unavailable | 20:40:07 | [facility] | | | | + + + + + + + + + | Result panel 349 | + + + + + + + + + | | 2022-09-26 | [facility] | NEGATIVE | (missing) | (missing) | | (unavailable | 20:40:07 | [facility] | | | | + + + + + + + + + | Result panel 350 | + + + + + + + + + | | 2022-09-26 | [facility] | NEGATIVE | (missing) | (missing) | | (unavailable | 20:40:07 [facility] | | | | + + + + + + + + + | Result panel 351 | + + + + + +--------+ + + | | 2022-09-26 | [facility] | 4.10 | (missing) | (missing) | | (unavailable | 20:40:07 [facility] | | | | + + + +--------+ + + + + | Result panel 352 | + + + + + + + + + | | 2022-09-26 | [facility] | <=1.005 | (missing) | (missing) | | (unavailable | 20:40:07 | [facility] | | | | + + + + + + + + + | Result panel 353 | + + + + + + + + + | | 2022-09-26 | [facility] | TRACE-I | (missing) | (missing) | | (unavailable | 20:40:07 | [facility] | | | | + + + + + + + + + | Result panel 354 | + + + + + +-------+ + + | | 2022-09-26 | [facility] | 7.5 | (missing) | (missing) | | (unavailable | 20:40:07 [facility] | | | | + + + +-------+ + + + + | Result panel 355 | + + + + + + + + + | | 2022-09-26 | [facility] | NEGATIVE | (missing) | (missing) | | (unavailable | 20:40:07 [facility] | | | | + + + + + + + + + | Result panel 356 | + + + + + + + + + | | 2022-09-26 | [facility] | NORMAL | (missing) | (missing) | | (unavailable | 20:40:07 [facility] | | | | + + + + + + + + + | Result panel 357 | + + + + + + + + + | | 2022-09-26 | [facility] | NEGATIVE | (missing) | (missing) | | (unavailable | 20:40:07 [facility] | | | | + + + + + + + + + | Result panel 358 | + + + + + +---------+ + + | | 2022-09-26 | [facility] | TRACE | (missing) | (missing) | | (unavailable | 20:40:07 [facility] | | | | + + + +---------+ + + + + | Result panel 359 | + + + + + +-------+ + + | | 2022-09-26 | [facility] | 2-3 | (missing) | (missing) | | (unavailable | 20:40:07 [facility] | | | | + + + +-------+ + + + + | Result panel 360 | + + + + + +---------+ + + | | 2022-09-26 | [facility] | 21-40 | (missing) | (missing) | | (unavailable | 20:40:07 | [facility] | | | | + + + +---------+ + + + + | Result panel 361 | + + + + + + + + + | | 2022-09-26 | [facility] | SQUAMOUS 1+ | (missing) | (missing) | | (unavailable | 20:40:07 | [facility] | | | | + + + + + + + + + | Result panel 362 | + + + + + +--------+ + + | | 2022-09-26 | [facility] | 12.2 | (missing) | (missing) | | (unavailable | 20:40:07 [facility] | | | | + + + +--------+ + + + + | Result panel 363 | + + + + + + + + + | | 2022-09-26 | [facility] | NONE SEEN | (missing) | (missing) | | (unavailable | 20:40:07 [facility] | | | | + + + + + + + + + | Result panel 364 | + + + + + +------+ + + | | 2022-09-26 | [facility] | 1+ | (missing) | (missing) | | (unavailable | 20:40:07 [facility] | | | | + + + +------+ + + + + | Result panel 365 | + + + + + + + + + | | 2022-09-26 | [facility] | NONE SEEN | (missing) | (missing) | | (unavailable | 20:40:07 [facility] | | | | + + + + + + + + + | Result panel 366 | + + + + + +-------+ + + | | 2022-09-26 | [facility] | Yes | (missing) | (missing) | | (unavailable | 20:40:07 [facility] | | | | + + + +-------+ + + + + | Result panel 367 | + + + + + +-------+---------+ + | | 2022-09-26 | [facility] | 103 | mg/dL | (missing) | | (unavailable | 20:40:07 | [facility] | | | | + + + +-------+---------+ + + + | Result panel 368 | + + + + + +-----+---------+ + | | 2022-09-26 | [facility] | 6 | mg/dL | (missing) | | (unavailable | 20:40:07 [facility] | | | | + + + +-----+---------+ + + + | Result panel 369 | + + + + + +--------+---------+ + | | 2022-09-26 | [facility] | 0.90 | mg/dL | (missing) | | (unavailable | 20:40:07 [facility] | | | | + + + +--------+---------+ + + + | Result panel 370 | + + + + + +------+ + + | | 2022-09-26 | [facility] | 63 | (missing) | (missing) | | (unavailable | 20:40:07 [facility] | | | | + + + +------+ + + + + | Result panel 371 | + + + + + +--------+ + + | | 2022-09-26 | [facility] | 6.66 | (missing) | (missing) | | (unavailable | 20:40:07 [facility] | | | | + + + +--------+ + + + + | Result panel 372 | + + + + + +-------+ + + | | 2022-09-26 | [facility] | 131 | (missing) | (missing) | | (unavailable | 20:40:07 [facility] | | | | + + + +-------+ + + + + | Result panel 373 | + + + + + +--------+ + + | | 2022-09-26 | [facility] | 36.6 | (missing) | (missing) | | (unavailable | 20:40:07 [facility] | | | | + + + +--------+ + + + + | Result panel 374 | + + + + + +-------+ + + | | 2022-09-26 | [facility] | 3.4 | (missing) | (missing) | | (unavailable | 20:40:07 [facility] | | | | + + + +-------+ + + + + | Result panel 375 | + + + + + +------+ + + | | 2022-09-26 | [facility] | 96 | (missing) | (missing) | | (unavailable | 20:40:07 [facility] | | | | + + + +------+ + + + + | Result panel 376 | + + + + + +------+ + + | | 2022-09-26 | [facility] | 27 | (missing) | (missing) | | (unavailable | 20:40:07 [facility] | | | | + + + +------+ + + + + | Result panel 377 | + + + + + +--------+ + + | | 2022-09-26 | [facility] | 11.4 | (missing) | (missing) | | (unavailable | 20:40:07 [facility] | | | | + + + +--------+ + + + + | Result panel 378 | + + + + + +-------+---------+ + | | 2022-09-26 | [facility] | 9.5 | mg/dL | (missing) | | (unavailable | 20:40:07 [facility] | | | | + + + +-------+---------+ + + + | Result panel 379 | + + + + + +-------+---------+ + | | 2022-09-26 | [facility] | 1.6 | mg/dL | (missing) | | (unavailable | 20:40:07 [facility] | | | | + + + +-------+---------+ + + + | Result panel 380 | + + + + + +-------+ + + | | 2022-09-26 | [facility] | 7.5 | (missing) | (missing) | | (unavailable | 20:40:07 [facility] | | | | + + + +-------+ + + + + | Result panel 381 | + + + + + +-------+ + + | | 2022-09-26 | [facility] | 3.8 | (missing) | (missing) | | (unavailable | 20:40:07 [facility] | | | | + + + +-------+ + + + + | Result panel 382 | + + + + + +-------+ + + | | 2022-09-26 | [facility] | 3.7 | (missing) | (missing) | | (unavailable | 20:40:07 [facility] | | | | + + + +-------+ + + + + | Result panel 383 | + + + + + +--------+ + + | | 2022-09-26 | [facility] | 1.03 | (missing) | (missing) | | (unavailable | 20:40:07 [facility] | | | | + + + +--------+ + + + + | Result panel 384 | + + + + + +--------+ + + | | 2022-09-26 | [facility] | 89.4 | (missing) | (missing) | | (unavailable | 20:40:07 [facility] | | | | + + + +--------+ + + + + | Result panel 385 | + + + + + +-------+ + + | | 2022-09-26 | [facility] | 0.7 | (missing) | (missing) | | (unavailable | 20:40:07 [facility] | | | | + + + +-------+ + + + + | Result panel 386 | + + + + + +------+ + + | | 2022-09-26 | [facility] | 17 | (missing) | (missing) | | (unavailable | 20:40:07 [facility] | | | | + + + +------+ + + + + | Result panel 387 | + + + + + +------+ + + | | 2022-09-26 | [facility] | 15 | (missing) | (missing) | | (unavailable | 20:40:07 [facility] | | | | + + + +------+ + + + + | Result panel 388 | + + + + + +------+ + + | | 2022-09-26 | [facility] | 70 | (missing) | (missing) | | (unavailable | 20:40:07 [facility] | | | | + + + +------+ + + + + | Result panel 389 | + + + + + +------+ + + | | 2022-09-26 | [facility] | 74 | (missing) | (missing) | | (unavailable | 20:40:07 [facility] | | | | + + + +------+ + + + + | Result panel 390 | + + + + + +--------+ + + | | 2022-09-26 | [facility] | 29.8 | (missing) | (missing) | | (unavailable | 20:40:07 [facility] | | | | + + + +--------+ + + + + | Result panel 391 | + + + + + +--------+ + + | | 2022-09-26 | [facility] | 33.3 | (missing) | (missing) | | (unavailable | 20:40:07 [facility] | | | | + + + +--------+ + + + + | Result panel 392 | + + + + + +--------+ + + | | 2022-09-26 | [facility] | 13.3 | (missing) | (missing) | | (unavailable | 20:40:07 [facility] | | | | + + + +--------+ + + + + | Result panel 393 | + + + + + +-------+ + + | | 2022-09-26 | [facility] | 227 | (missing) | (missing) | | (unavailable | 20:40:07 [facility] | | | | + + + +-------+ + + Social History + + + + | date | description | facility | + + + + | 2016-01-07 00:00 | Never smoked tobacco | [facility] | + + + + Vital Signs + + + +---------+ | date | measurement | value | units | + + + +---------+ | 2021-12-22 00:00 | BMI | 24.9 | kg/m2 | + + + +---------+ | 2021-12-22 00:00 | BP_diastolic | 59 | mmHg | + + + +---------+ | 2021-12-22 00:00 | BP_systolic | 132 | mmHg | + + + +---------+ | 2021-12-22 00:00 | heart_rate | 91 | /min | + + + +---------+ | 2021-12-22 00:00 | height_metric | 157.48 | cm | + + + +---------+ | 2021-12-22 00:00 | height_standard | 62 | in | + + + +---------+ | 2021-12-22 00:00 | o2_saturation | 99 | % | + + + +---------+ | 2021-12-22 00:00 | respiration_rate | 16 | /min | + + + +---------+ | 2021-12-22 00:00 | temperature_metric | 36.72 | C | | | | | | + + + +---------+ | 2021-12-22 00:00 | | 98.1 | F | | | temperature_standar | | | | | d | | | + + + +---------+ | 2021-12-22 00:00 | weight_metric | 61.8 | kg | + + + +---------+ | 2021-12-22 00:00 | weight_standard | 136.24 | lb | + + + +---------+ | 2021-12-22 00:00 | weight_standard | 136.25 | lb | + + + +---------+ | 2022-06-01 00:00 | BMI | 25.2 | kg/m2 | + + + +---------+ | 2022-06-01 00:00 | BP_diastolic | 47 | mmHg | + + + +---------+ | 2022-06-01 00:00 | BP_systolic | 132 | mmHg | + + + +---------+ | 2022-06-01 00:00 | heart_rate | 78 | /min | + + + +---------+ | 2022-06-01 00:00 | height_metric | 157.48 | cm | + + + +---------+ | 2022-06-01 00:00 | height_standard | 62 | in | + + + +---------+ | 2022-06-01 00:00 | o2_saturation | 97 | % | + + + +---------+ | 2022-06-01 00:00 | respiration_rate | 16 | /min | + + + +---------+ | 2022-06-01 00:00 | temperature_metric | 36.39 | C | | | | | | + + + +---------+ | 2022-06-01 00:00 | | 97.5 | F | | | temperature_standar | | | | | d | | | + + + +---------+ | 2022-06-01 00:00 | weight_metric | 62.5 | kg | + + + +---------+ | 2022-06-01 00:00 | weight_standard | 137.79 | lb | + + + +---------+ | 2022-06-03 00:00 | BMI | 23.9 | kg/m2 | + + + +---------+ | 2022-06-03 00:00 | height_metric | 157.48 | cm | + + + +---------+ | 2022-06-03 00:00 | height_standard | 62 | in | + + + +---------+ | 2022-06-03 00:00 | weight_metric | 59.2 | kg | + + + +---------+ | 2022-06-03 00:00 | weight_standard | 130.51 | lb | + + + +---------+ | 2022-06-05 00:00 | BP_diastolic | 61 | mmHg | + + + +---------+ | 2022-06-05 00:00 | BP_systolic | 123 | mmHg | + + + +---------+ | 2022-06-05 00:00 | heart_rate | 77 | /min | + + + +---------+ | 2022-06-05 00:00 | o2_saturation | 99 | % | + + + +---------+ | 2022-06-05 00:00 | respiration_rate | 18 | /min | + + + +---------+ | 2022-06-05 00:00 | temperature_metric | 36.28 | C | | | | | | + + + +---------+ | 2022-06-05 00:00 | | 97.3 | F | | | temperature_standar | | | | | d | | | + + + +---------+ | 2022-07-25 00:00 | BMI | 23.05 | kg/m2 | + + + +---------+ | 2022-07-25 00:00 | BP_diastolic | 70 | mmHg | + + + +---------+ | 2022-07-25 00:00 | BP_systolic | 153 | mmHg | + + + +---------+ | 2022-07-25 00:00 | heart_rate | 90 | /min | + + + +---------+ | 2022-07-25 00:00 | height_metric | 157.5 | cm | + + + +---------+ | 2022-07-25 00:00 | height_standard | 62.01 | in | + + + +---------+ | 2022-07-25 00:00 | respiration_rate | 16 | /min | + + + +---------+ | 2022-07-25 00:00 | weight_metric | 57.15 | kg | + + + +---------+ | 2022-07-25 00:00 | weight_standard | 126 | lb | + + + +---------+ | 2022-08-20 00:00 | BMI | 22.9 | kg/m2 | + + + +---------+ | 2022-08-20 00:00 | BP_diastolic | 74 | mmHg | + + + +---------+ | 2022-08-20 00:00 | BP_systolic | 142 | mmHg | + + + +---------+ | 2022-08-20 00:00 | heart_rate | 72 | /min | + + + +---------+ | 2022-08-20 00:00 | height_metric | 157.48 | cm | + + + +---------+ | 2022-08-20 00:00 | height_standard | 62 | in | + + + +---------+ | 2022-08-20 00:00 | o2_saturation | 99 | % | + + + +---------+ | 2022-08-20 00:00 | respiration_rate | 16 | /min | + + + +---------+ | 2022-08-20 00:00 | temperature_metric | 36.83 | C | | | | | | + + + +---------+ | 2022-08-20 00:00 | | 98.3 | F | | | temperature_standar | | | | | d | | | + + + +---------+ | 2022-08-20 00:00 | weight_metric | 56.9 | kg | + + + +---------+ | 2022-08-20 00:00 | weight_standard | 125.44 | lb | + + + +---------+ | 2022-08-21 00:00 | BMI | 23.2 | kg/m2 | + + + +---------+ | 2022-08-21 00:00 | height_metric | 157.48 | cm | + + + +---------+ | 2022-08-21 00:00 | height_standard | 62 | in | + + + +---------+ | 2022-08-21 00:00 | weight_metric | 57.6 | kg | + + + +---------+ | 2022-08-21 00:00 | weight_standard | 126.99 | lb | + + + +---------+ | 2022-08-23 00:00 | BMI | 23.0 | kg/m2 | + + + +---------+ | 2022-08-23 00:00 | BP_diastolic | 53 | mmHg | + + + +---------+ | 2022-08-23 00:00 | BP_diastolic | 67 | mmHg | + + + +---------+ | 2022-08-23 00:00 | BP_systolic | 140 | mmHg | + + + +---------+ | 2022-08-23 00:00 | BP_systolic | 151 | mmHg | + + + +---------+ | 2022-08-23 00:00 | heart_rate | 78 | /min | + + + +---------+ | 2022-08-23 00:00 | heart_rate | 80 | /min | + + + +---------+ | 2022-08-23 00:00 | height_metric | 157.48 | cm | + + + +---------+ | 2022-08-23 00:00 | height_standard | 62 | in | + + + +---------+ | 2022-08-23 00:00 | o2_saturation | 100 | % | + + + +---------+ | 2022-08-23 00:00 | o2_saturation | 99 | % | + + + +---------+ | 2022-08-23 00:00 | respiration_rate | 14 | /min | + + + +---------+ | 2022-08-23 00:00 | respiration_rate | 16 | /min | + + + +---------+ | 2022-08-23 00:00 | temperature_metric | 36.39 | C | | | | | | + + + +---------+ | 2022-08-23 00:00 | temperature_metric | 36.44 | C | | | | | | + + + +---------+ | 2022-08-23 00:00 | | 97.5 | F | | | temperature_standar | | | | | d | | | + + + +---------+ | 2022-08-23 00:00 | | 97.6 | F | | | temperature_standar | | | | | d | | | + + + +---------+ | 2022-08-23 00:00 | weight_metric | 57.15 | kg | + + + +---------+ | 2022-08-23 00:00 | weight_standard | 126 | lb | + + + +---------+ | 2022-08-24 00:00 | BMI | 23.0 | kg/m2 | + + + +---------+ | 2022-08-24 00:00 | BP_diastolic | 71 | mmHg | + + + +---------+ | 2022-08-24 00:00 | BP_systolic | 165 | mmHg | + + + +---------+ | 2022-08-24 00:00 | heart_rate | 65 | /min | + + + +---------+ | 2022-08-24 00:00 | height_metric | 157.48 | cm | + + + +---------+ | 2022-08-24 00:00 | height_standard | 62 | in | + + + +---------+ | 2022-08-24 00:00 | o2_saturation | 99 | % | + + + +---------+ | 2022-08-24 00:00 | respiration_rate | 15 | /min | + + + +---------+ | 2022-08-24 00:00 | temperature_metric | 36.22 | C | | | | | | + + + +---------+ | 2022-08-24 00:00 | | 97.2 | F | | | temperature_standar | | | | | d | | | + + + +---------+ | 2022-08-24 00:00 | weight_metric | 57.15 | kg | + + + +---------+ | 2022-08-24 00:00 | weight_standard | 125.99 | lb | + + + +---------+ | 2022-08-24 00:00 | weight_standard | 126 | lb | + + + +---------+ | 2022-09-26 00:00 | BMI | 21.8 | kg/m2 | + + + +---------+ | 2022-09-26 00:00 | BP_diastolic | 69 | mmHg | + + + +---------+ | 2022-09-26 00:00 | BP_systolic | 122 | mmHg | + + + +---------+ | 2022-09-26 00:00 | heart_rate | 71 | /min | + + + +---------+ | 2022-09-26 00:00 | height_metric | 157.48 | cm | + + + +---------+ | 2022-09-26 00:00 | height_standard | 62 | in | + + + +---------+ | 2022-09-26 00:00 | o2_saturation | 98 | % | + + + +---------+ | 2022-09-26 00:00 | respiration_rate | 15 | /min | + + + +---------+ | 2022-09-26 00:00 | temperature_metric | 36.44 | C | | | | | | + + + +---------+ | 2022-09-26 00:00 | | 97.6 | F | | | temperature_standar | | | | | d | | | + + + +---------+ | 2022-09-26 00:00 | weight_metric | 54 | kg | + + + +---------+ | 2022-09-26 00:00 | weight_standard | 119.05 | lb | + + + +---------+"
--- OUTSIDE RECORDS SUMMARY | ~2022-09-30 | XMS | Continuity of Care Document ---
Demographics + + + | Address | [address] | | | [place] [address] | + + + | Preferred Language | Unknown | + + + | Marital Status | | + + + | Mandaeism Affiliation | Unknown | + + + | Race | White | + + + | Ethnic Group | Not or | + + + Author + + + | Author | [facility] | + + + | Organization | [facility] | + + + | Address | [address] | | | [place] [address] | + + + | Phone | | + + + Care Team Providers + + + + | Care Bond Writer Name | Role | Phone | + [...] | (no severity) | | | | [facility] | | | + + + + + + | (no date) | Hives | [facility] | (no reaction) | (no severity) | | | | [facility] | | | + + + + + + | (no date) | AMOXICILLIN | [facility] | (no reaction) | (no severity) | | | | [facility] | | | + + + + + + | (no date) | AMOXICILLIN | [facility] | (no reaction) | (no severity) | | | | [facility] | | | + + + + + + | (no date) | Upset stomach | [facility] | (no reaction) | (no severity) | | | [facility] | | | + + + + + + | (no date) | AMOXICILLIN | [facility] | (no reaction) | (no severity) | | | | [facility] | | | + + + + + + | (no date) | CEFUROXIME | [facility] | (no reaction) | (no severity) | | | | [facility] | | | + + + + + + | (no date) | CEFUROXIME | [facility] | (no reaction) | (no severity) | | | AXETIL | [facility] | | | + + + + + + | (no date) | CEFUROXIME | [facility] | (no reaction) | (no severity) | | | | [facility] | | | + + + + + + | (no date) | CEFUROXIME | [facility] | (no reaction) | (no severity) | | | AXETIL | [facility] | | | + + + + + + | (no date) | CEFUROXIME | [facility] | (no reaction) | (no severity) | | | AXETIL | [facility] | | | + + + + + + | (no date) | CEFUROXIME | [facility] | (no reaction) | (no severity) | | | | [facility] | | | + + + + + + | (no date) | Cefuroxime | [facility] | (no reaction) | (no severity) | | [facility] | | | + + + + + + | (no date) | AMOXICILLIN | [facility] | (no reaction) | (no severity) | | | | [facility] | | | + + + + + + | (no date) | CEFUROXIME | [facility] | (no reaction) | (no severity) | | | AXETIL | [facility] | | | + + + + + + | (no date) | Mild | [facility] | (no reaction) | (no severity) | | | [facility] | | | + + + + + + | (no date) | AMOXICILLIN | [facility] | (no reaction) | (no severity) | | | | [facility] | | | + + + + [...] | (no severity) | | | | [facility] | | | + + + + + + | (no date) | Unknown | [facility] | (no reaction) | (no severity) | | | | [facility] | | | + + + + + + | (no date) | ESOMEPRAZOLE | [facility] | (no reaction) | (no severity) | | | MAGNESIUM | [facility] | | | + + + + + + | (no date) | ESOMEPRAZOLE | [facility] | (no reaction) | (no severity) | | | MAGNESIUM | [facility] | | | + + + + [...] | (no severity) | | | | [facility] | | | + + + + + + | (no date) | CEFUROXIME | [facility] | (no reaction) | (no severity) | | | AXETIL | [facility] | | | + + + + + + | (no date) | PENICILLINS | [facility] | (no reaction) | (no severity) | | | | [facility] | | | + + + + + + | (no date) | Penicillin | [facility] | (no reaction) | (no severity) | | [facility] | | | + + + + + + | (no date) | AMOXICILLIN | [facility] | (no reaction) | (no severity) | | | | [facility] | | | + + + + [...] | (no severity) | | | | [facility] | | | + + + + + + | (no date) | Amoxicillin | [facility] | (no reaction) | (no severity) | | | [facility] | | | + + + + + + | (no date) | AMOXICILLIN | [facility] | (no reaction) | (no severity) | | | | [facility] | | | + + + + [...] | (no severity) | | | | [facility] | | | + + + + + + | (no date) | AMOXICILLIN | [facility] | (no reaction) | (no severity) | | | [facility] | | | + + + + + + | (no date) | CEFUROXIME | [facility] | (no reaction) | (no severity) | | | AXETIL | [facility] | | | + + + + + + | (no date) | CEFUROXIME | [facility] | (no reaction) | (no severity) | | | AXETIL | [facility] | | | + + + + + + | (no date) | CEFUROXIME | [facility] | (no reaction) | (no severity) | | | | [facility] | | | + + + + + + | (no date) | CEFUROXIME | [facility] | (no reaction) | (no severity) | | | | [facility] | | | + + + + + + | (no date) | ESOMEPRAZOLE | [facility] | (no reaction) | (no severity) | | | MAGNESIUM | [facility] | | | + + + + + + | (no date) | ESOMEPRAZOLE | [facility] | (no reaction) | (no severity) | | | MAGNESIUM | [facility] | | | + + + + + + | (no date) | PENICILLINS | [facility] | (no reaction) | (no severity) | | | | [facility] | | | + + + + + + | (no date) | PENICILLINS | [facility] | (no reaction) | (no severity) | | | | [facility] | | | + + + + + + | (no date) | CEFUROXIME | [facility] | (no reaction) | (no severity) | | | | [facility] | | | + + + + [...] (no severity) | | | AXETIL | [facility] | | | + + + + + + Encounters No information. Functional Status No information. Immunizations No information. Medications + + + + | date | description | facility | + + + + | 2022-08-24 00:00 | PHENAZOPYRIDINE HCL | [facility] | + + + + | 2022-06-05 00:00 | CRANBERRY CONC/ASCORBIC | [facility] | | | ACID | | + + + + | 2022-08-20 00:00 | CRANBERRY CONC/ASCORBIC | [facility] | | | ACID | | + + + + | 2022-08-23 00:00 | CRANBERRY CONC/ASCORBIC | [facility] | | | ACID | | + + + + | 2022-08-23 00:00 | CRANBERRY CONC/ASCORBIC | [facility] | | | ACID | | + + + + | 2022-08-24 00:00 | CRANBERRY CONC/ASCORBIC | [facility] | | | ACID | | + + + + | 2022-09-26 00:00 | CRANBERRY CONC/ASCORBIC | [facility] | | | ACID | | + + + + | 2022-06-05 00:00 | NITROFURANTOIN | [facility] | | | MONOHYD/M-CRYST | | + + + + | 2022-08-20 00:00 | NITROFURANTOIN | [facility] | | | MONOHYD/M-CRYST | | + + + + | 2022-08-23 00:00 | NITROFURANTOIN | [facility] | | | MONOHYD/M-CRYST | | + + + + | 2022-08-23 00:00 | NITROFURANTOIN | [facility] | | | MONOHYD/M-CRYST | | + + + + | 2022-08-24 00:00 | NITROFURANTOIN | [facility] | | | MONOHYD/M-CRYST | | + + + + | 2022-09-26 00:00 | NITROFURANTOIN | [facility] | | | MONOHYD/M-CRYST | | [...] | 2022-08-23 00:00 | AMLODIPINE BESYLATE | [facility] | + + + + | 2022-08-23 00:00 | AMLODIPINE BESYLATE | [facility] | + + + + | 2022-08-24 00:00 | AMLODIPINE BESYLATE | [facility] | + + + + | 2022-09-26 00:00 | AMLODIPINE BESYLATE | [facility] | + + + + | 2019-07-12 00:00 | amlodipine 5 mg oral | [facility] | | | tablet | | + + + + | 2021-12-22 00:00 | CIMETIDINE | [facility] | + + + + | 2022-06-01 00:00 | CIMETIDINE | [facility] | + + + + | 2022-06-05 00:00 | CIMETIDINE | [facility] | + + + + | 2022-08-20 00:00 | CIMETIDINE | [facility] | + + + + | 2022-08-23 00:00 | CIMETIDINE | [facility] | + + + + | 2022-08-23 00:00 | CIMETIDINE | [facility] | + + + + | 2022-08-24 00:00 | CIMETIDINE | [facility] | + + + + | 2022-09-26 00:00 | CIMETIDINE | [facility] | + + + + | 2019-08-13 00:00 | cimetidine 200 mg oral | [facility] | | | tablet | | + + + + | 2021-12-22 00:00 | ESTRADIOL | [facility] | + + + + | 2022-06-01 00:00 | ESTRADIOL | [facility] | + + + + | 2022-06-05 00:00 | ESTRADIOL | [facility] | + + + + | 2022-08-20 00:00 | ESTRADIOL | [facility] | + + + + | 2022-08-23 00:00 | ESTRADIOL | [facility] | + + + + | 2022-08-23 00:00 | ESTRADIOL | [facility] | + + + + | 2022-08-24 00:00 | ESTRADIOL | [facility] | + + + + | 2022-09-26 00:00 | ESTRADIOL | [facility] | + + + + | 2019-08-13 00:00 | estradiol 0.5 mg oral | [facility] | | | tablet | | + + + + | 2021-12-22 00:00 | LOVASTATIN | [facility] | + + + + | 2022-06-01 00:00 | LOVASTATIN | [facility] | + + + + | 2022-06-05 00:00 | LOVASTATIN | [facility] | + + + + | 2022-08-20 00:00 | LOVASTATIN | [facility] | + + + + | 2022-08-23 00:00 | LOVASTATIN | [facility] | + + + + | 2022-08-23 00:00 | LOVASTATIN | [facility] | + + + + | 2022-08-24 00:00 | LOVASTATIN | [facility] | + + + + | 2022-09-26 00:00 | LOVASTATIN | [facility] | + + + + | 2019-09-27 00:00 | lovastatin 10 mg oral | [facility] | | | tablet | | + + + + | 2022-08-20 00:00 | OMEPRAZOLE | [facility] | + + + + | 2022-08-23 00:00 | OMEPRAZOLE | [facility] | + + + + | 2022-08-23 00:00 | OMEPRAZOLE | [facility] | + + + + | 2022-08-24 00:00 | OMEPRAZOLE | [facility] | + + + + | 2022-09-26 00:00 | OMEPRAZOLE | [facility] | + + + + | 2022-07-09 00:00 | omeprazole 20 mg (as | [facility] | | | omeprazole magnesium 20.6 | | | | mg) delayed release oral | | | | capsule | | + + + + | 2022-06-05 00:00 | Cholecalciferol (Vitamin | [facility] | | | D3) | | + + + + | 2022-08-20 00:00 | Cholecalciferol (Vitamin | [facility] | | | D3) | | + + + + | 2022-08-23 00:00 | Cholecalciferol (Vitamin | [facility] | | | D3) | | + + + + | 2022-08-23 00:00 | Cholecalciferol (Vitamin | [facility] | | | D3) | | + + + + | 2022-08-24 00:00 | Cholecalciferol (Vitamin | [facility] | | | D3) | | + + + + | 2022-09-26 00:00 | Cholecalciferol (Vitamin | [facility] | | | D3) | | + + + + | 2019-08-13 00:00 | hydrochlorothiazide 12.5 | [facility] | | | mg oral capsule | | + + + + | 2020-02-01 00:00 | CIPROFLOXACIN HCL | [facility] | + + + + | 2020-02-01 00:00 | CIPROFLOXACIN HCL | [facility] | + + + + | 2020-02-01 00:00 | CIPROFLOXACIN HCL | [facility] | + + + + | 2021-12-22 00:00 | AMLODIPINE BESYLATE | [facility] | + + + + | 2022-06-01 00:00 | AMLODIPINE BESYLATE | [facility] | + + + + | 2022-06-05 00:00 | AMLODIPINE BESYLATE | [facility] | + + + + | 2022-08-20 00:00 | AMLODIPINE BESYLATE | [facility] | + + + + | 2022-08-23 00:00 | AMLODIPINE BESYLATE | [facility] | + + + + | 2022-08-23 00:00 | AMLODIPINE BESYLATE | [facility] | + + + + | 2022-08-24 00:00 | AMLODIPINE BESYLATE | [facility] | + + + + | 2022-09-26 00:00 | AMLODIPINE BESYLATE | [facility] | + + + + | 2010-06-04 00:00 | vitamin d3 25 mcg oral | [facility] | | | capsule | | + + + + | 2022-06-05 00:00 | CALCIUM CARBONATE | [facility] | + + + + | 2022-08-20 00:00 | CALCIUM CARBONATE | [facility] | + + + + | 2022-08-23 00:00 | CALCIUM CARBONATE | [facility] | + + + + | 2022-08-23 00:00 | CALCIUM CARBONATE | [facility] | + + + + | 2022-08-24 00:00 | CALCIUM CARBONATE | [facility] | + + + + | 2022-09-26 00:00 | CALCIUM CARBONATE | [facility] | + + + + | 2022-07-25 00:00 | estradiol 0.1 mg/ml | [facility] | | | vaginal cream | | + + + + | 2022-06-05 00:00 | LEVOFLOXACIN | [facility] | + + + + | 2022-08-23 00:00 | LEVOFLOXACIN | [facility] | + + + + | 2022-06-05 00:00 | levofloxacin 750 mg oral | [facility] | | | tablet | | + + + + | 2021-12-22 00:00 | CALCIUM CARBONATE | [facility] | + + + + | 2022-06-01 00:00 | CALCIUM CARBONATE | [facility] | + + + + | 2022-07-28 00:00 | Drug or medicament | [facility] | | | (substance) | | + + + + | 2021-12-22 00:00 | HYDROCHLOROTHIAZIDE | [facility] | + + + + | 2022-06-01 00:00 | HYDROCHLOROTHIAZIDE | [facility] | + + + + | 2022-06-05 00:00 | HYDROCHLOROTHIAZIDE | [facility] | + + + + | 2022-08-20 00:00 | HYDROCHLOROTHIAZIDE | [facility] | + + + + | 2022-08-23 00:00 | HYDROCHLOROTHIAZIDE | [facility] | + + + + | 2022-08-23 00:00 | HYDROCHLOROTHIAZIDE | [facility] | + + + + | 2022-08-24 00:00 | HYDROCHLOROTHIAZIDE | [facility] | + + + + | 2022-09-26 00:00 | HYDROCHLOROTHIAZIDE | [facility] | + + + + | 2021-12-22 00:00 | Cholecalciferol (Vitamin | [facility] | | | D3) | | + + + + | 2022-06-01 00:00 | Cholecalciferol (Vitamin | [facility] | | | D3) | | + + + + | 2021-12-22 00:00 | NITROFURANTOIN MONOHYD | [facility] | | | MACROCR | | + + + + | 2022-06-01 00:00 | NITROFURANTOIN MONOHYD | [facility] | | | MACROCR | | + + + + | 2022-08-20 00:00 | NITROFURANTOIN MONOHYD | [facility] | | | MACROCR | | + + + + | 2021-12-22 00:00 | CRANBERRY EXTRACT | [facility] | + + + + | 2022-06-01 00:00 | CRANBERRY EXTRACT | [facility] | + + + + | 2022-06-05 00:00 | OXYBUTYNIN CHLORIDE | [facility] | + + + + | 2022-08-20 00:00 | OXYBUTYNIN CHLORIDE | [facility] | + + + + | 2022-08-23 00:00 | OXYBUTYNIN CHLORIDE | [facility] | + + + + | 2022-08-23 00:00 | OXYBUTYNIN CHLORIDE | [facility] | + + + + | 2022-08-24 00:00 | OXYBUTYNIN CHLORIDE | [facility] | + + + + | 2022-09-26 00:00 | OXYBUTYNIN CHLORIDE | [facility] | + + + + | 2022-06-01 00:00 | OXYBUTYNIN CHLORIDE | [facility] | + + + + | 2022-08-23 00:00 | TAMSULOSIN HCL | [facility] | + + + + | 2022-08-23 00:00 | TAMSULOSIN HCL | [facility] | + + + + | 2022-08-24 00:00 | TAMSULOSIN HCL | [facility] | + + + + | 2022-09-26 00:00 | TAMSULOSIN HCL | [facility] | + + + + | 2022-07-12 00:00 | tamsulosin hydrochloride | [facility] | | | 0.4 mg oral capsule | | + + + + | 2022-06-01 00:00 | TAMSULOSIN HCL | [facility] | + + + + | 2022-06-01 00:00 | TAMSULOSIN HCL | [facility] | + + + + | 2022-06-01 00:00 | TAMSULOSIN HCL | [facility] | + + + + | 2021-12-22 00:00 | POLYETHYLENE GLYCOL 3350 | [facility] | + + + + | 2022-06-01 00:00 | POLYETHYLENE GLYCOL 3350 | [facility] | + + + + | 2022-06-05 00:00 | POLYETHYLENE GLYCOL 3350 | [facility] | + + + + | 2022-08-20 00:00 | POLYETHYLENE GLYCOL 3350 | [facility] | + + + + | 2022-08-23 00:00 | POLYETHYLENE GLYCOL 3350 | [facility] | + + + + | 2022-08-23 00:00 | POLYETHYLENE GLYCOL 3350 | [facility] | + + + + | 2022-08-24 00:00 | POLYETHYLENE GLYCOL 3350 | [facility] | + + + + | 2022-09-26 00:00 | POLYETHYLENE GLYCOL 3350 | [facility] | + + + + | 2022-07-25 00:00 | estrace 0.01 % vaginal | [facility] | | | cream | | + + + + | 2021-12-22 00:00 | LEVOTHYROXINE SODIUM | [facility] | + + + + | 2022-06-01 00:00 | LEVOTHYROXINE SODIUM | [facility] | + + + + | 2022-06-05 00:00 | LEVOTHYROXINE SODIUM | [facility] | + + + + | 2022-08-20 00:00 | LEVOTHYROXINE SODIUM | [facility] | + + + + | 2022-08-23 00:00 | LEVOTHYROXINE SODIUM | [facility] | + + + + | 2022-08-23 00:00 | LEVOTHYROXINE SODIUM | [facility] | + + + + | 2022-08-24 00:00 | LEVOTHYROXINE SODIUM | [facility] | + + + + | 2020-09-03 00:00 | levothyroxine sodium 0.025 | [facility] | | | mg oral tablet | | + + + + | 2022-06-05 00:00 | LEVOTHYROXINE SODIUM | [facility] | + + + + | 2022-08-20 00:00 | LEVOTHYROXINE SODIUM | [facility] | + + + + | 2022-08-23 00:00 | LEVOTHYROXINE SODIUM | [facility] | + + + + | 2022-08-23 00:00 | LEVOTHYROXINE SODIUM | [facility] | + + + + | 2022-08-24 00:00 | LEVOTHYROXINE SODIUM | [facility] | + + + + | 2020-09-03 00:00 | levothyroxine sodium 0.05 | [facility] | | | mg oral tablet | | + + + + | 2022-09-26 00:00 | LEVOTHYROXINE SODIUM | [facility] | + + + + Problems [...] cts - carpal tunnel | [facility] | | | syndrome | | + + + + | 2009-05-28 00:00 | Carpal tunnel syndrome | [facility] | + + + + | 2009-05-28 00:00 | Osteopenia | [facility] | + + + + | 2009-06-02 00:00 | hypothyroidism (disorder) | [facility] | + + + + | 2009-06-02 00:00 | Adult hypothyroidism | [facility] | + + + + | 2009-06-25 [...] history of urinary disease | [facility] | | | (situation) | | + + + + | 2009-08-27 00:00 | H/O urinary disorder | [facility] | + + + + | 2012-05-03 00:00 | dysphagia (disorder) | [facility] | + + + + | 2012-05-03 00:00 | Dysphagia | [facility] | + + + + | 2012-06-18 00:00 | menieres disease of left | [facility] | | | inner ear | | + + + + | 2012-06-18 00:00 | 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 | | + + + + | 2012-08-08 00:00 | laryngopharyngeal reflux | [facility] | | | (disorder) | | + + + + | 2012-08-08 00:00 | Laryngopharyngeal reflux | [facility] | + + + + | 2012-10-10 00:00 | neurosensory deafness | [facility] | + + + + | 2012-10-10 00:00 | Deafness, sensorineural | [facility] | + + + + | 2015-07-22 00:00 | acne erythematosa | [facility] | + + + + | 2015-07-22 00:00 | postmenopausal | [facility] | + + + + | 2015-07-22 00:00 | Rosacea | [facility] | + + + + | 2015-07-22 00:00 | Hormone replacement | [facility] | | | therapy (postmenopausal) | | + + + + | 2016-01-07 00:00 | herniated urinary bladder | [facility] | | | (disorder) | | + + + + | 2016-01-07 00:00 | Cystocele | [facility] | + + + + | 2017-01-04 00:00 | abdominal bruit (finding) | [facility] | + + + + | 2017-01-04 00:00 | Abdominal bruit | [facility] | + + + + | 2017-01-20 [...] + | 2019-08-13 08:23:44 | Hypothyroidism, | [facility] | | | unspecified | | + + + + | 2019-08-13 08:23:44 | Mixed hyperlipidemia | [facility] | | | | | + + + + | 2019-08-13 08:23:44 | Meniere's disease, 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 | | + + + + | 2019-08-13 08:23:44 | Essential (primary) | [facility] | | | hypertension | | + + + + | 2019-08-13 08:23:44 | Encounter for general | [facility] | | | adult medical examination | | | | without abnormal findings | | + + + + | 2019-08-13 08:23:44 | snf (current) use of | [facility] | | | aspirin | | + + + + | 2019-08-13 08:23:44 | Hormone replacement | [facility] | | | therapy | | + + + + | 2020-02-01 00:00 | Back pain | [facility] | + + + + | 2020-02-01 00:00 | Back pain | [facility] | + + + + | 2020-02-01 00:00 | Back pain | [facility] | + + + + | 2020-02-01 00:00 | Urinary tract infection | [facility] | + + + + 2020-02-01 00:00 | Urinary tract infection | [facility] | + + + + | 2020-02-01 00:00 | Urinary tract infection | [facility] | + + + + | 2020-02-10 00:00 | cholelithiasis, non | [facility] | | | obstructive | | + + + + | 2020-02-10 00:00 | Calculus of gallbladder | [facility] | | | without cholecystitis | | | | without obstruction | | + + + + | 2020-02-10 15:52:25 | Acute cystitis without | [facility] | | | hematuria | | + + + + | 2021-06-22 00:00 | Retention of urine | [facility] | + + + + | 2021-06-22 00:00 | Retention of urine | [facility] | + + + + | 2021-06-22 00:00 | Retention of urine | [facility] | + + + + | 2021-12-22 00:00 | Adverse effect of drug | [facility] | + + + + | 2021-12-22 00:00 | Adverse effect of drug | [facility] | + + + + | 2021-12-22 00:00 | Adverse effect of drug | [facility] | + + + + | [...] + + | 2022-06-01 11:19 | 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) | [facility] | | | DRUG [...] + | 2022-08-22 00:00 | Bandemia | [facility] | + + + + | 2022-08-22 00:00 | Bandemia | [facility] | + + + + | 2022-08-22 00:00 | Syncope | [facility] | + + + + | 2022-08-22 00:00 | Syncope | [facility] | + + + + | [...] + + | 2022-08-23 19:40 | 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) | [facility] | | | DRUG [...] 2022-08-24 00:00 | Problem with Banerjee | [facility] | | | catheter | | [...] + + | 2022-08-24 17:54 | OTHER NURSING HOME (CURRENT) | [facility] | | | DRUG [...] + | 2022-09-26 00:00 | Hypomagnesemia | [facility] | + + + + | 2022-09-26 00:00 | Dehydration | [facility] | + + + + | 2022-09-26 00:00 | Hypokalemia | [facility] | + + + + | [...] + + | 2022-09-26 19:26 | OTHER NURSING HOME (CURRENT) | [facility] | | | DRUG [...] + + + | 2022-07-21 00:00 | RI CYSTOURETHROSCOPY | [facility] | + + + + Results/Labs +--------+--------+ [...] (missing) | | (unavailable | 05:10:07 | [facility]an[facility] | | | | | ) | [...] (missing) | | (unavailable | 09:10:07 | [facility] | | | | | ) | [...] (missing) | | (unavailable | 20:40:07 | [facility] | | | | | ) | [...] | Never smoked tobacco | [facility] | + + + + Vital Signs [...]
[~2022-09-30 09:19] MED LIST changes: +LEVOTHYROXINE125 MCG PO; +PYRIDIUM200 MG PO
--- OUTSIDE RECORDS SUMMARY | 2022-09-30 09:28 | XMS ---
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 Jose VISIT COUNT (12 MO.) [address] [place] [address] TOTAL 9 NOTE: Visits indicate total known visits. ED/UCC VISIT TRACKING (12 MO.) 09/30/2022 09:22 [facility] TYPE: Emergency COMPLAINT: - URINATION PROBLEM 09/26/2022 19:26 [facility] TYPE: Emergency COMPLAINT: - FLU SYMPTOMS DIAGNOSES: - Allergy status to other antibiotic agents - Allergy status to penicillin - Dehydration - Essential (primary) hypertension - Hypo-osmolality and hyponatremia - Hypokalemia - Hypomagnesemia - Hypothyroidism, unspecified - Nausea - Other alf (current) 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 - Pure hypercholesterolemia, unspecified 08/24/2022 17:54 [facility] TYPE: Emergency COMPLAINT: - CATHETER PROBLEM DIAGNOSES: - Allergy status to other antibiotic agents - Allergy status to penicillin - Allergy status to sulfonamides - Essential (primary) hypertension - Hypothyroidism, unspecified - Other alf (current) 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 - Other mechanical complication of other urinary catheter, initial encounter - Pure hypercholesterolemia, unspecified - Urinary catheterization as the cause of abnormal reaction of the patient, or of later complication, without mention of misadventure at the time of the procedure 08/23/2022 19:40 [facility] TYPE: Emergency COMPLAINT: - UNABLE TO URINATE DIAGNOSES: - Allergy status to other antibiotic agents - Allergy status to other drugs, medicaments and biological substances - Allergy status to penicillin - Allergy status to sulfonamides - Essential (primary) hypertension - Hypothyroidism, unspecified - Other terminal supervisor (current) 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 - Pure hypercholesterolemia, unspecified - Retention of urine, unspecified 08/21/2022 07:43 [facility] TYPE: Emergency COMPLAINT: - N/V 08/20/2022 14:51 [facility] TYPE: Emergency COMPLAINT: - CATHETER PROBLEM DIAGNOSES: - Allergy status to other antibiotic agents - Allergy status to other drugs, medicaments and biological substances - Allergy status to penicillin - Allergy status to sulfonamides - Essential (primary) hypertension - Hypothyroidism, unspecified - Other terminal supervisor (current) 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 - Presence of urogenital [...] (primary) hypertension - Hypothyroidism, unspecified - Other alf (current) 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 - Pure hypercholesterolemia, unspecified - Retention of urine, unspecified 12/22/2021 19:44 [facility] TYPE: Emergency COMPLAINT: - MEDICATION REACTION DIAGNOSES: - Adverse effect of other systemic antibiotics, initial encounter - Allergy status to other drugs, medicaments and biological substances - Allergy status to penicillin - Hypothyroidism, unspecified - Nausea with vomiting, unspecified - Other terminal supervisor (current) 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 - Pure hypercholesterolemia, unspecified INPATIENT VISIT TRACKING (12 MO.) 08/21/2022 07:44 [facility] TYPE: Observation COMPLAINT: - UTI,SYNCOPE DIAGNOSES: - Allergy status to other drugs, medicaments and biological substances - Allergy status to penicillin - Allergy status to sulfonamides - Do not resuscitate - Essential (primary) hypertension - Hyperlipidemia, unspecified - Hypokalemia - Hypomagnesemia - Hypothyroidism, unspecified - Urinary tract infection, site not specified 06/03/2022 10:57 [facility] TYPE: Medical [...] - Hypomagnesemia - Hypothyroidism, unspecified - Other terminal supervisor (current) 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 - Other obstructive and reflux uropathy - Pure hypercholesterolemia, unspecified - Retention of urine, unspecified [email or web address])/[id number]
[2022-09-30 12:05] VITALS: BP 153/63
== END 2022-09-30 12:05 | disposition home or self-care (01) ==
LOC: ED 09:19
DX: R33.9 Retention of urine, unspecified (principal); E03.9 Hypothyroidism, unspecified; I10 Essential (primary) hypertension; E78.00 Pure hypercholesterolemia, unspecified; Z88.0 Allergy status to penicillin; Z88.1 Allergy status to other antibiotic agents; Z88.2 Allergy status to sulfonamides; Z88.8 Allergy status to other drugs, medicaments and biological substances; Z79.899 Other long term (current) 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
CPT/HCPCS: 81001

== ENCOUNTER 2022-12-22 06:32 | Emergency (ER) | payer MEDICARE, OTHER ==
[~2022-12-22] VITALS: Ht 157.5 cm; Wt 58.2 kg
--- OUTSIDE RECORDS SUMMARY | ~2022-12-22 | XMS | Continuity of Care Document ---
Demographics + + + | Address | [address] | | | [place] [address] | + + + | Preferred Language | Unknown | + + + | Marital Status | | + + + | Pentecostal Affiliation | Unknown | + + + | Race | White | + + + | Ethnic Group | Not or | + + + Author + + + | Author | [facility] | + + + | Organization | [facility] | + + + | Address | [address] | | | [place], [place] [address] | + + + | Phone | | + + + Care Team Providers + + + + | Care Horse Racer Name | Role | Phone | + + + + Unavailable | Unavailable | + + + + Allergies No information. Encounters No information. Functional Status No information. Immunizations No information. Medications No information. 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) | [facility] | | | DRUG THERAPY | | + + + + | 2022-09-26 19:26 | ALLERGY STATUS TO | [facility] | | | PENICILLIN | | + + + + | 2022-09-26 19:26 | ALLERGY STATUS TO OTHER | [facility] | | | ANTIBIOTIC AGENTS STATUS | | + + + + | 2022-09-30 09:22 | HYPOTHYROIDISM, | [facility] | | | UNSPECIFIED | | + + + + | 2022-09-30 09:22 | PURE HYPERCHOLESTEROLEMIA, | [facility] | | | UNSPECIFIED | | + + + + | 2022-09-30 09:22 | Essential (primary) | [facility] | | | hypertension | | + + + + | 2022-09-30 09:22 | RETENTION OF URINE, | [facility] | | | UNSPECIFIED | | + + + + | 2022-09-30 09:22 | OTHER PRISON (CURRENT) | [facility] | | | DRUG THERAPY | | + + + + | 2022-09-30 09:22 | ALLERGY STATUS TO | [facility] | | | PENICILLIN | | + + + + | 2022-09-30 09:22 | ALLERGY STATUS TO OTHER | [facility] | | | ANTIBIOTIC AGENTS STATUS | | + + + + | 2022-09-30 09:22 | ALLERGY STATUS TO | [facility] | | | SULFONAMIDES STATUS | | + + + + | 2022-09-30 09:22 | ALLERGY STATUS TO OTH | [facility] | | | DRUG/MEDS/BIOL SUBST STATUS | | | | | | + + + + | 2022-11-26 20:43 | HYPOMAGNESEMIA | [facility] | + + + + | 2022-11-26 20:43 | HYPO-OSMOLALITY AND | [facility] | | | HYPONATREMIA | | + + + + | 2022-11-26 20:43 | HYPOKALEMIA | [facility] | + + + + | 2022-11-26 20:43 | URINARY TRACT INFECTION, | [facility] | | | SITE NOT SPECIFIED | | + + + + | 2022-11-26 20:43 | CYSTOCELE, UNSPECIFIED | [facility] | + + + + | 2022-11-26 20:43 | ALLERGY STATUS TO | [facility] | | | PENICILLIN | | + + + + | 2022-11-26 20:43 | ALLERGY STATUS TO OTHER | [facility] | | | ANTIBIOTIC AGENTS STATUS | | + + + + | 2022-11-26 20:43 | ALLERGY STATUS TO | [facility] | | | SULFONAMIDES STATUS | | + + + + | 2022-11-26 20:43 | ALLERGY STATUS TO OTH | [facility] | | | DRUG/MEDS/BIOL SUBST STATUS | | | | | | + + + + Procedures No information. Results/Labs No information. Social History +--------+ + + | date | description | facility | +--------+ + + Vital Signs No information."
[~2022-12-22 06:32] MED LIST changes: +CIPROFLOXACIN500 MG PO
--- OUTSIDE RECORDS SUMMARY | 2022-12-22 06:43 | XMS ---
PreManage Notification: VINICIO ALONSO Security Privacy Analyst Events No recent Security Events currently on file CRITERIA MET - 6 ED Visits in 6 Months - [facility] - 2 Visits in 30 Days CARE PROVIDERS [facility] 01/21/2015-Current PHONE: Unknown Deidre has no Care Guidelines for this patient. Jose VISIT COUNT (12 MO.) [address] [place] [address] TOTAL 11 NOTE: Visits indicate total known visits. ED/UCC VISIT TRACKING (12 MO.) 12/22/2022 06:32 [facility] TYPE: Emergency COMPLAINT: - ABD PAIN 11/26/2022 20:42 [facility] TYPE: Emergency COMPLAINT: - POSS UTI/ABD PAIN 09/30/2022 09:22 [facility] TYPE: Emergency COMPLAINT: - URINATION PROBLEM DIAGNOSES: - Allergy status to other antibiotic agents - Allergy status to other drugs, medicaments and biological substances - Allergy status to penicillin - Allergy status to sulfonamides - Essential (primary) hypertension - Hypothyroidism, unspecified - Other assistant terminal manager (current) 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 - Pure hypercholesterolemia, unspecified - Retention of urine, unspecified 09/26/2022 19:26 [facility] TYPE: Emergency COMPLAINT: - FLU SYMPTOMS DIAGNOSES: - Allergy status to other antibiotic agents - Allergy status to penicillin - Dehydration - Essential (primary) hypertension - Hypo-osmolality and hyponatremia - Hypokalemia - Hypomagnesemia - Hypothyroidism, unspecified - Nausea - Other assistant terminal manager (current) 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 - Pure hypercholesterolemia, unspecified 08/24/2022 17:54 [facility] TYPE: Emergency COMPLAINT: - CATHETER PROBLEM DIAGNOSES: - Allergy status to other antibiotic agents - Allergy status to penicillin - Allergy status to sulfonamides - Essential (primary) hypertension - Hypothyroidism, unspecified - Other assistant terminal manager (current) 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 - Other mechanical complication [...] (primary) hypertension - Hypothyroidism, unspecified - Other assistant terminal manager (current) 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 - Pure hypercholesterolemia, unspecified [...] (primary) hypertension - Hypothyroidism, unspecified - Other assistant terminal manager (current) 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 - Presence of urogenital [...] (primary) hypertension - Hypothyroidism, unspecified - Other assistant terminal manager (current) 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 - Pure hypercholesterolemia, unspecified - Retention of urine, unspecified 12/22/2021 19:44 [facility] TYPE: Emergency COMPLAINT: - MEDICATION REACTION DIAGNOSES: - Adverse effect of other systemic antibiotics, initial encounter - Allergy status to other drugs, medicaments and biological substances - Allergy status to penicillin - Hypothyroidism, unspecified - Nausea with vomiting, unspecified - Other assistant terminal manager (current) 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 - Pure hypercholesterolemia, unspecified INPATIENT VISIT TRACKING (12 MO.) 11/26/2022 20:43 [facility] TYPE: Observation COMPLAINT: - UTI INTRACTABLE N/V HYPOMAGNESIEMIA HYPONATREMIA DIAGNOSES: - Allergy status to other antibiotic agents - Allergy status to other drugs, medicaments and biological substances - Allergy status to penicillin - Allergy status to sulfonamides - Contact with and (suspected) exposure to COVID-19 - Cystocele, unspecified - Hypo-osmolality and hyponatremia - Hypokalemia - Hypomagnesemia - Urinary tract infection, site not specified 08/21/2022 07:44 [facility] TYPE: Observation [...] - Hypomagnesemia - Hypothyroidism, unspecified - Other assistant terminal manager (current) 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 - Other obstructive and reflux uropathy - Pure hypercholesterolemia, unspecified - Retention of urine, unspecified [id number]
[2022-12-22 06:56] LABS: BASOPHILS 0.3 % (0-2); EOSINOPHILS 0.1 % (0-6); HEMATOCRIT 40.9 % (35.0-50.0); HEMOGLOBIN 13.6 g/dL (12.0-18.0); LYMPHOCYTES 7.2 % (24-44); MCH 29.8 (27-36); MCHC 33.3 g/dl (30-36); MCV 89.5 fl (81-99); MONOCYTES 14.1 % (0-12); NEUTROPHILS 78.3 % (39-80); PLATELET COUNT 226 K/uL (140-440); RBC 4.57 M/ul (4.3-5.7); RDW 13.7 (10.5-15.0)
[2022-12-22 07:05] LABS: ALBUMIN/GLOBULIN RATIO 0.93 (1.1-2.4); ANION GAP 15.5 (7-21); BILIRUBIN, TOTAL 0.6 ng/dL (0.2-1.0); BUN/CREATININE RATIO 10.1 (6.0-28.6); CALCIUM 9.7 mg/dL (8.5-10.1); CREATININE, SERUM 0.99 mg/dL (0.55-1.02); MAGNESIUM 1.5 mg/dL (1.8-2.4); POTASSIUM 3.5 mmol/L (3.5-5.1); PROTEIN, TOTAL 8.3 g/dL (6.4-8.2)
[2022-12-22 07:39] LABS: LACTIC ACID, BLOOD 1.2 mmol/L (0.4-2.0)
[2022-12-22 07:42] LABS: BILIRUBIN, URINE NEGATIVE (negative); BLOOD/HGB, URINE SMALL (Negative); KETONE, URINE SMALL (Negative); LEUK ESTERASE, URINE NEGATIVE (negative); NITRITE, URINE NEGATIVE (negative); PH, URINE 7.5 (5-7)
[2022-12-22 07:56] LABS: BACTERIA, URINE NONE SEEN /hpf (negative); CASTS, URINE NONE SEEN \\lpf; COLLECTION TYPE, URINE CLEAN CATCH; CRYSTALS, URINE NONE SEEN (0-1+); EPITHELIAL CELLS, URINE 0 /lpf (0-1+); REFLEX CULTURE, URINE No (No); WHITE BLOOD CELLS, URINE 0-1 /HPF (0-5)
[2022-12-22] MEDS ORDERED: ONDANSETRON HCL4 MG PO (08:25)
[2022-12-22] MEDS ORDERED: MAGNESIUM250 MG PO (08:25)
[2022-12-22 08:49] VITALS: BP 129/60
== END 2022-12-22 08:45 | disposition home or self-care (01) ==
LOC: ED 06:32
PROVIDERS: Internal Medicine
DX: E86.0 Dehydration (principal); E83.42 Hypomagnesemia; E03.9 Hypothyroidism, unspecified; E78.5 Hyperlipidemia, unspecified; I10 Essential (primary) hypertension; Z88.0 Allergy status to penicillin; Z88.8 Allergy status to other drugs, medicaments and biological substances; Z88.2 Allergy status to sulfonamides; Z79.899 Other long term (current) 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
CPT/HCPCS: 36415; 51702; 80053; 81001; 83605; 83615; 83690; 83735; 85025; 99284-25; J2405; J3475; J7121

== ENCOUNTER 2022-12-26 04:37 | Emergency (ER) | payer MEDICARE, OTHER ==
[~2022-12-26] VITALS: Ht 157.5 cm; Wt 52.2 kg
[~2022-12-26 04:37] MED LIST changes: +MAGNESIUM250 MG PO; +ONDANSETRON HCL4 MG PO
--- OUTSIDE RECORDS SUMMARY | 2022-12-26 04:44 | XMS ---
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 Jose VISIT COUNT (12 MO.) [address] [place] [address] TOTAL 11 NOTE: Visits indicate total known visits. ED/UCC VISIT TRACKING (12 MO.) 12/26/2022 04:38 [facility] TYPE: Emergency COMPLAINT: - WEAKNESS 12/22/2022 06:32 [facility] TYPE: Emergency COMPLAINT: - ABD PAIN DIAGNOSES: - Allergy status to other drugs, medicaments and biological substances - Allergy status to penicillin - Allergy status to sulfonamides - Dehydration - Essential (primary) hypertension - Hyperlipidemia, unspecified - Hypomagnesemia - Hypothyroidism, unspecified - Other group home (current) 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 - Unspecified abdominal pain 11/26/2022 20:42 [facility] TYPE: Emergency COMPLAINT: - POSS UTI/ABD PAIN 09/30/2022 09:22 [facility] TYPE: Emergency COMPLAINT: - URINATION PROBLEM DIAGNOSES: - Allergy status to other antibiotic agents - Allergy status to other drugs, medicaments and biological substances - Allergy status to penicillin - Allergy status to sulfonamides - Essential (primary) hypertension - Hypothyroidism, unspecified - Other group home (current) 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 - Pure hypercholesterolemia, unspecified - Retention of urine, unspecified 09/26/2022 19:26 [facility] TYPE: Emergency COMPLAINT: - FLU SYMPTOMS DIAGNOSES: - Allergy status to other antibiotic agents - Allergy status to penicillin - Dehydration - Essential (primary) hypertension - Hypo-osmolality and hyponatremia - Hypokalemia - Hypomagnesemia - Hypothyroidism, unspecified - Nausea - Other group home (current) 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 - Pure hypercholesterolemia, unspecified 08/24/2022 17:54 [facility] TYPE: Emergency COMPLAINT: - CATHETER PROBLEM DIAGNOSES: - Allergy status to other antibiotic agents - Allergy status to penicillin - Allergy status to sulfonamides - Essential (primary) hypertension - Hypothyroidism, unspecified - Other buttermaker (current) 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 - Other mechanical complication [...] (primary) hypertension - Hypothyroidism, unspecified - Other buttermaker (current) 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 - Pure hypercholesterolemia, unspecified [...] (primary) hypertension - Hypothyroidism, unspecified - Other group home (current) 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 - Presence of urogenital [...] (primary) hypertension - Hypothyroidism, unspecified - Other buttermaker (current) 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 - Pure hypercholesterolemia, unspecified - Retention of urine, unspecified INPATIENT VISIT TRACKING (12 MO.) 11/26/2022 [...] - Hypomagnesemia - Hypothyroidism, unspecified - Other buttermaker (current) 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 - Other obstructive and reflux uropathy - Pure hypercholesterolemia, unspecified - Retention of urine, unspecified [email or web address]
[2022-12-26 04:54] LABS: BASOPHILS 0.8 % (0-2); EOSINOPHILS 0.3 % (0-6); HEMATOCRIT 39.7 % (35.0-50.0); HEMOGLOBIN 13.2 g/dL (12.0-18.0); LYMPHOCYTES 42.9 % (24-44); MCH 29.7 (27-36); MCHC 33.2 g/dl (30-36); MCV 89.5 fl (81-99); MONOCYTES 23.4 % (0-12); NEUTROPHILS 32.6 % (39-80); PLATELET COUNT 216 K/uL (140-440); RBC 4.44 M/ul (4.3-5.7)
[2022-12-26 05:03] LABS: BILIRUBIN, URINE NEGATIVE (negative); BLOOD/HGB, URINE TRACE-I (Negative); KETONE, URINE SMALL (Negative); LEUK ESTERASE, URINE NEGATIVE (negative); NITRITE, URINE NEGATIVE (negative)
[2022-12-26 05:08] LABS: ALBUMIN 3.5 g/dL (3.4-5.0); ALBUMIN/GLOBULIN RATIO 0.88 (1.1-2.4); ANION GAP 13.6 (7-21); BILIRUBIN, TOTAL 0.4 ng/dL (0.2-1.0); BUN/CREATININE RATIO 10.57 (6.0-28.6); CALCIUM 9.2 mg/dL (8.5-10.1); CREATININE, SERUM 1.04 mg/dL (0.55-1.02); POTASSIUM 3.6 mmol/L (3.5-5.1); PROTEIN, TOTAL 7.5 g/dL (6.4-8.2)
[2022-12-26 05:12] LABS: WHITE BLOOD CELLS, URINE 0-1 /HPF (0-5)
[2022-12-26 05:13] LABS: EPITHELIAL CELLS, URINE SQUAMOUS 2+ /lpf (0-1+); REFLEX CULTURE, URINE No (No)
[2022-12-26 05:34] LABS: INFLUENZA B NAA NEGATIVE (NEGATIVE); RESPIRATORY SYNCYTIAL VIR NAA NEGATIVE (NEGATIVE)
[2022-12-26] MEDS ORDERED: PAXLOVID 300-11 EACH PO (06:06)
[2022-12-26 06:33] VITALS: BP 127/58
== END 2022-12-26 06:24 | disposition home or self-care (01) ==
LOC: ED 04:37
PROVIDERS: Family Medicine
DX: U07.1 COVID-19 (principal); I10 Essential (primary) hypertension; E03.9 Hypothyroidism, unspecified; Z88.0 Allergy status to penicillin; Z88.8 Allergy status to other drugs, medicaments and biological substances; Z88.1 Allergy status to other antibiotic agents; Z79.890 Hormone replacement therapy; Z79.899 Other long term (current) 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
CPT/HCPCS: 36415; 80053; 81001; 85025; 87502; C9803; U0002

== ENCOUNTER 2023-02-07 13:52 | Emergency (ER) | payer MEDICARE, OTHER ==
[~2023-02-07] VITALS: Ht 157.5 cm; Wt 52.3 kg
[~2023-02-07 13:52] MED LIST changes: +PAXLOVID 300-11 EACH PO
--- OUTSIDE RECORDS SUMMARY | 2023-02-07 14:01 | XMS ---
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 Jose VISIT COUNT (12 MO.) 12 [facility] TOTAL 12 NOTE: Visits indicate total known visits. ED/UCC VISIT TRACKING (12 MO.) 02/07/2023 13:53 [facility] TYPE: Emergency COMPLAINT: - BLOOD IN URINE 12/26/2022 04:38 [facility] TYPE: Emergency COMPLAINT: - WEAKNESS DIAGNOSES: - Allergy status to other antibiotic agents - Allergy status to other drugs, medicaments and biological substances - Allergy status to penicillin - COVID-19 - Essential (primary) hypertension - Hormone replacement therapy - Hypothyroidism, unspecified - Other [facility] (current) 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 - Weakness 12/22/2022 06:32 [facility] TYPE: Emergency COMPLAINT: - ABD PAIN DIAGNOSES: - Allergy status to other drugs, medicaments and biological substances - Allergy status to penicillin - Allergy status to sulfonamides - Dehydration - Essential (primary) hypertension - Hyperlipidemia, unspecified - Hypomagnesemia - Hypothyroidism, unspecified - Other [facility] (current) 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 - Unspecified abdominal pain [...] (primary) hypertension - Hypothyroidism, unspecified - Other intermediate frame tender (current) 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 - Pure hypercholesterolemia, unspecified - Retention of urine, unspecified 09/26/2022 19:26 [facility] TYPE: Emergency COMPLAINT: - FLU SYMPTOMS DIAGNOSES: - Allergy status to other antibiotic agents - Allergy status to penicillin - Dehydration - Essential (primary) hypertension - Hypo-osmolality and hyponatremia - Hypokalemia - Hypomagnesemia - Hypothyroidism, unspecified - Nausea - Other [facility] (current) 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 - Pure hypercholesterolemia, unspecified 08/24/2022 17:54 [facility] TYPE: Emergency COMPLAINT: - CATHETER PROBLEM DIAGNOSES: - Allergy status to other antibiotic agents - Allergy status to penicillin - Allergy status to sulfonamides - Essential (primary) hypertension - Hypothyroidism, unspecified - Other intermediate frame tender (current) 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 - Other mechanical complication [...] (primary) hypertension - Hypothyroidism, unspecified - Other intermediate frame tender (current) 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 - Pure hypercholesterolemia, unspecified [...] (primary) hypertension - Hypothyroidism, unspecified - Other intermediate frame tender (current) 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 - Presence of urogenital [...] (primary) hypertension - Hypothyroidism, unspecified - Other intermediate frame tender (current) 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 - Pure hypercholesterolemia, unspecified [...] - Hypomagnesemia - Hypothyroidism, unspecified - Other intermediate frame tender (current) 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 - Other obstructive and reflux uropathy - Pure hypercholesterolemia, unspecified - Retention of urine, unspecified [email or web address]
[2023-02-07 17:20] LABS: BILIRUBIN, URINE NEGATIVE (negative); BLOOD/HGB, URINE TRACE-I (Negative); KETONE, URINE TRACE (Negative); LEUK ESTERASE, URINE NEGATIVE (negative); NITRITE, URINE NEGATIVE (negative); PH, URINE 7.5 (5-7)
[2023-02-07 17:28] LABS: WHITE BLOOD CELLS, URINE 0-1 /HPF (0-5)
[2023-02-07 17:29] LABS: BACTERIA, URINE NONE SEEN /hpf (negative); CASTS, URINE NONE SEEN \\lpf; COLLECTION TYPE, URINE CLEAN CATCH; CRYSTALS, URINE NONE SEEN (0-1+); EPITHELIAL CELLS, URINE SQUAMOUS 1+ /lpf (0-1+); REFLEX CULTURE, URINE No (No)
[2023-02-07] MEDS ORDERED: BELLADONNA-OPI1 EACH PR (18:00)
[2023-02-07 18:06] VITALS: BP 137/65
== END 2023-02-07 18:07 | disposition home or self-care (01) ==
LOC: ED 13:52
PROVIDERS: Emergency Medicine
DX: T83.091A Other mechanical complication of indwelling urethral catheter, initial encounter (principal); N81.10 Cystocele, unspecified; I10 Essential (primary) hypertension; E03.9 Hypothyroidism, unspecified; Z88.0 Allergy status to penicillin; Z88.1 Allergy status to other antibiotic agents; Z88.2 Allergy status to sulfonamides; Z88.8 Allergy status to other drugs, medicaments and biological substances; Z79.899 Other long term (current) 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; Z79.890 Hormone replacement therapy
CPT/HCPCS: 81001